=== PATIENT | female | born 1985 | race Caucasian/White ===

== ENCOUNTER 2016-08-26 09:28 | Outpatient (CLI) | payer OTHER ==
[~2016-08-26] VITALS: Ht 165.1 cm; Wt 99.5 kg
[2016-08-26 09:40] VITALS: BP 129/74; PULSE 93; RESP 16; Ht 165.1 cm; Wt 99.5 kg
[2016-08-26] MEDS ORDERED: OMEP20CA16 PO (10:06)
[2016-08-26] MEDS ORDERED: PRED5TAB50 PO (10:06)
[2016-08-26] MEDS ORDERED: FER325 PO (10:06)
[2016-08-26] MEDS ORDERED: MTF1000T PO (10:06)
--- NOTE | 2016-08-26 19:26 | CONS ---
[facility] INITIAL OUTPATIENT CONSULTATION NOTE DATE OF CONSULTATION: 08/26/2016 PLACE OF SERVICE: [facility] ASSESSMENT AND PLAN: A very pleasant 31-year-old young lady with rather complex medical issues including refractory idiopathic thrombocytopenia as well as liver lesions that appear to be benign in nature and likely represent focal nodular hyperplasia. The possibility of adenoma exists and I have very low suspicion of malignancy in this situation. If the patient only had the liver issues, I would have likely not recommended any surgical intervention. She has more a surgical need for removal of her spleen, given her diagnosis of idiopathic thrombocytopenia, and this can certainly be attempted laparoscopically with fairly good success rate of completion with laparoscopy. At the same time we can also evaluate the liver with intraoperative ultrasound and, given the size of these lesions and the patient's abdominal pain, it is possible that the left lateral lesions are causing the patient's symptoms. This area can likely also be resected laparoscopically with a left lateral segmentectomy and therefore both possibly provide symptom relief as well as more diagnostic evaluation of these lesions. I explained all this to the patient and her significant other, both of whom appeared to understand and agree with plans. I reviewed the operation in detail including the risks, benefits, and alternatives, and the patient and family appeared to agree. I described to them the process, which is essentially a multidisciplinary tumor board presentation, followed by likely surgical resection. With above assessment, I have recommended the followin. Multidisciplinary tumor board presentation. 2. Schedule the patient for a laparoscopic splenectomy with possible intraoperative ultrasound of the liver and possible partial hepatectomy. Thank you again for allowing us to participate in the care of this very pleasant lady with a very interesting clinical problem and her wonderful family. If there are any questions, please feel free to contact me at . UPDATED CLINICAL SUMMARY: A very pleasant 31-year-old lady with comorbidities including BMI of 36.5 as well as chronic idiopathic thrombocytopenia (ITP) since late 2014 that has been refractory to medical treatment, presenting with several hepatic masses. COMORBIDITIES: 1. BMI 36.5. 2. Chronic ITP diagnosed late 2014 and refractory to multiple lines of medical treatment including steroid use, Imuran, Nplate (romiplostim) as well as rituximab with very little effect. Platelet counts in the 20s to 30s. Surgical intervention was recommended by Dr. Luna. 3. Anemia. 4. Diabetes mellitus. 5. Adnexal cyst. 6. Hearing loss in the left side. 7. Status post . 8. Multiple liver lesions that appear to be homogeneously arterially phases, enhancing hepatic lesions with differential including hepatic adenomas, hemangiomas, focal nodular hyperplasia, or hypervascular metastatic disease as seen on abdominal and pelvic CT 04/21/2016. Abdominal ultrasound on 04/21/2016 showed enlarged fatty liver and above-mentioned masses measuring up to 6 cm. A contrast MRI 04/24/2016 again showed multiple arterially enhancing liver lesions , one of which was 4.2 x 5.9 cm (distal edge of segment 2), a second one was 1.8 cm (again in segment 2 but more immediately), additional 4 to 5 smaller lesions within the right lobe were noted all showing washout on 30 second delay , and mostly isointense the liver on delayed images. Central areas of hypointensity seen within the 2 left lobe lesions fill in, and there is a suggestion of mild hyperintense appearance on the 60 second delayed films, best seen on image 26. 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 9. A 5 mm cystic pancreatic tail lesion again seen on the MRI. HISTORY OF PRESENT ILLNESS: The patient is a very pleasant 31-year-old lady with above-mentioned comorbidities whom we were kindly asked to consult regarding management of her hepatic lesions. She reports abdominal pain that is in the upper quadrants and spans from the left to the right side. No reported nausea or vomiting or decreased appetite, change in weight, difficulty with bowel movements, issues with blood in the stool or urine or any other major complaints. ALLERGIES: NO KNOWN DRUG ALLERGIES. MEDICATIONS: 1. Ferrous sulfate. 2. Glucophage. 3. Omeprazole. 4. Prednisone 15 mg p.o. every other day. SOCIAL HISTORY: The patient lives with her boyfriend and her child. She does not report any significant smoking, drinking, or intravenous drug use. She was born in [place] and is currently single and has 1 child and is unemployed. FAMILY HISTORY: No mention of major medical issues other than hypertension in the mother. No history of liver disease or other major medical, surgical, or oncologic problems. REVIEW OF SYSTEMS: Other than the above-mentioned, there are no other pertinent positives or pertinent negatives in a complete 14-point review of systems. Note that the patient was on control pills until recently and she stopped taking them, making a 13-year period where she used oral contraceptives. PHYSICAL EXAMINATION: GENERAL: The patient appears to be a very pleasant lady of descent, appearing stated age, sitting in a chair comfortably and in no acute distress. BMI 36.5. VITAL SIGNS: Temperature 98.5, blood pressure 129/74, pulse 93, respiratory rate 16, pulse oximetry 94% on room air. HEENT: Normocephalic and atraumatic. Extraocular muscles and hearing are grossly intact bilaterally and symmetrically. Sclerae are nonicteric. Oral cavity is clear; oral mucosa appeared to be pink and moist. Dentition: fair. NECK: Supple. There is no lymphadenopathy or JVD. There is no submental, submandibular or supraclavicular lymphadenopathy. CHEST: Rises symmetrically with each breath; patient is breathing comfortably. There are no audible wheezes, rales or rhonchi on the gross exam. HEART: Pulse is regular and palpable on the right wrist. Capillary refill was normal. Carotid pulses are palpable bilaterally and symmetrically in the neck. EXTREMITIES: Lower extremities contain no pitting edema around the ankles bilaterally and symmetrically. ABDOMEN: Soft, nondistended, and mildly tender to palpation in the upper quadrants. There is no evidence of peritoneal signs or guarding. There is no evidence of organomegaly, caput medusae, engorged subcutaneous veins, or ascites. SKIN: Appears to be pink and feels warm to touch. NEUROLOGIC: Awake, alert, and follows commands appropriately. LABORATORY DATA: Dated 07/2016, platelet count 30. Dated 06/2016, Marv direct test was positive with 1+ anti-IgG and negative anti-complement levels. Bilirubin 0.3, alkaline phosphatase 101, albumin 3.9, creatinine 0.4, CO2 of 29. CEA 1.0. CA 19-9 of 12. Alpha fetoprotein 1.5. Hepatitis C antibody negative. IMAGING: As above. Note that I personally reviewed all the available and pertinent images and I agree in general with their overall reported findings. Dictated By: TALA KATE/LUIS ENRIQUE Conf#: [id number] DID#: [id number] CC: Anders Luna MD; Madeleine Cochran MD; Terry Matthews;*End* MTDD
== END 2016-08-26 16:54 | disposition home or self-care (01) ==
LOC: HPC 09:28
PROVIDERS: ATTEND Transplant Surgery
DX: D69.3 Immune thrombocytopenic purpura (principal); K76.9 Liver disease, unspecified; E11.9 Type 2 diabetes mellitus without complications; H91.92 Unspecified hearing loss, left ear; Z79.84 Long term (current) use of oral hypoglycemic drugs
CPT/HCPCS: G0463

== ENCOUNTER 2016-09-17 05:30 | Inpatient (IN) | payer OTHER ==
[2016-09-16 09:45] VITALS: BMI 36.7
[2016-09-17] VITALS (19 sets, daily range): BP systolic 126–167; BP diastolic 72–88; PULSE 85–108; RESP 12–18; Ht 165.1 cm; Wt 99.6 kg
[~2016-09-17] VITALS: Ht 165.1 cm; Wt 99.6 kg
[~2016-09-17 05:30] MED LIST: FER325 PO; MTF1000T PO; OMEP20CA16 PO; PRED5TAB50 PO
[2016-09-17] MEDS ORDERED: NORG1TAB65 PO (07:55)
[2016-09-17] MEDS ORDERED: BUPIVACAINE 0.25%/EPI (SDV) 30 ML INJ ONE (08:33)
--- NOTE | 2016-09-17 08:52 | HPN ---
Date/Time of Note Date/Time of Note DATE: 09/17/16 TIME: 08:51 Interval H&P Admission Note Pt. seen H&P reviewed: No system changes Pt. seen H&P reviewed. No system changes (I attest that I have seen and examined the patient and reviewed the operation in detail, as well as its risks , benefits and alternatives of the operation). I attest that I have seen and examined the patient and reviewed in detail the operation, and its associated risks, benefits and alternative. I have answered all the patient's questions to the best of my ability and the patient wishes to proceed. Please refer to rest of electronic medical record for additional updates. TALA HIGGINS M.D. Sep 17, 2016 08:52
[2016-09-17] MEDS ORDERED: MIDAZOLAM 1 MG/ML 2 ML INJ ONE (09:02)
[2016-09-17 09:06] LABS: ADD SCAN DIFF NO
[2016-09-17 09:09] LABS: ABNORMAL IP MESSAGE 1; HEMATOCRIT 25.2 % (37.0-47.0); HEMOGLOBIN 8.5 g/dl (12.0-16.0); MEAN CORPUSCULAR HEMOGLOBIN 35.3 pg (29.0-33.0); MEAN CORPUSCULAR HGB CONC 33.7 g/dl (32.0-37.0); MEAN CORPUSCULAR VOLUME 104.6 fl (82.0-101.0); MEAN PLATELET VOLUME 12.4 fl (7.4-10.4); RED BLOOD COUNT 2.41 10^6/ul (4.20-5.40); RED CELL DISTRIBUTION WIDTH 15.8 % (11.5-14.5)
[2016-09-17] MEDS ORDERED: PHENYLephrine (100 MCG/ML) 5ML SYG ONE (09:14)
[2016-09-17 09:38] LABS: PLATELET COUNT 24 10^3/UL (140-415)
[2016-09-17 10:12] LABS: EOSINOPHILS # 0.1 10^3/ul (0.0-0.5); LYMPHOCYTES # 1.6 10^3/ul (0.8-2.9); MONOCYTE # 0.3 10^3/ul (0.3-0.9); NEUTROPHIL # 1.7 10^3/ul (1.6-7.5)
[2016-09-17 10:13] LABS: PLATELET ESTIMATE PLT APPEAR DECREASED
[2016-09-17] MEDS ORDERED: morphine 10 MG INJ ONE ×2 (11:53→13:21)
[2016-09-17] MEDS ORDERED: LIDOCAINE 2% (SDV) 5 ML INJ ONE (13:19)
[2016-09-17] MEDS ORDERED: PROPOFOL 20 ML ONE (13:19)
[2016-09-17] MEDS ORDERED: ROCURONIUM 50 MG INJ ONE (13:20)
[2016-09-17] MEDS ORDERED: ONDANSETRON 4 MG INJ ONE ×2 (13:20→13:30)
[2016-09-17] MEDS ORDERED: CEFAZOLIN 1 GM INJ ONE (13:20)
[2016-09-17] MEDS ORDERED: D5W-0.45 NACL + KCL 20 MEQ 1,000 ML IV SCH (13:28)
[2016-09-17] MEDS ORDERED: FENTAnyl 50 MCG/ML VIAL ONE (13:29)
[2016-09-17] MEDS ORDERED: morphine (1 MG/ML) 10ML SYRINGE IV ONE (13:30)
[2016-09-17] MEDS ORDERED: DOCUSATE SODIUM 100 MG CAP PO PRN (13:30)
[2016-09-17] MEDS ORDERED: HYDROmorphONE 1 MG/ML SYG IV PRN (13:30)
[2016-09-17] MEDS ORDERED: BISACODYL 10 MG SUPP PR PRN (13:30)
[2016-09-17] MEDS ORDERED: NA PHOSPHATE/BIPHOS 133 ML ENEMA PR PRN (13:30)
[2016-09-17] MEDS ORDERED: HYDROCODONE/APAP (5/325) TAB PO PRN ×2 (13:30)
[2016-09-17] MEDS: FENTAnyl 50 MCG/ML VIAL IV PRN ×2 (13:48→14:01)
[2016-09-17] MEDS: morphine (1 MG/ML) 10ML SYRINGE IV PRN ×6 (13:48→18:36)
[2016-09-17] MEDS ORDERED: MEPERIDINE 25 MG INJ IV PRN (14:00)
[2016-09-17] MEDS ORDERED: DIPHENHYDRAMINE 50 MG INJ IV PRN (14:00)
[2016-09-17] MEDS ORDERED: FENTAnyl 50 MCG/ML VIAL IV PRN (14:00)
[2016-09-17] MEDS ORDERED: ONDANSETRON 4 MG INJ IV PRN (14:00)
--- NOTE | 2016-09-17 14:04 | OPR ---
Date/Time of Note Date/Time of Note DATE: 09/17/16 TIME: 14:04 Operative Report Operative\Procedure Findings [facility] INPATIENT OPERATIVE NOTE PLACE OF SERVICE: [facility] DATE OF SURGERY: 09/17/2016 PREOPERATIVE DIAGNOSIS: 1. Chronic ITP diagnosed late 2014 and refractory to multiple lines of medical treatment including steroid use, Imuran, Nplate (romiplostim) as well as rituximab with very little effect. Platelet counts in the 20s to 30s. Surgical intervention was recommended by Dr. Luna. 2. BMI 36.5. 3. Anemia. 4. Diabetes mellitus. 5. Adnexal cyst. 6. Hearing loss in the left side. 7. Status post . 8. Multiple liver lesions that appear to be homogeneously arterially phases, enhancing hepatic lesions with differential including hepatic adenomas, hemangiomas, focal nodular hyperplasia, or hypervascular metastatic disease as seen on abdominal and pelvic CT 04/21/2016. Abdominal ultrasound on 04/21/2016 showed enlarged fatty liver and above-mentioned masses measuring up to 6 cm. A contrast MRI 04/24/2016 again showed multiple arterially enhancing liver lesions , one of which was 4.2 x 5.9 cm (distal edge of segment 2), a second one was 1.8 cm (again in segment 2 but more immediately), additional 4 to 5 smaller lesions within the right lobe were noted all showing washout on 30 second delay , and mostly isointense the liver on delayed images. Central areas of hypointensity seen within the 2 left lobe lesions fill in, and there is a suggestion of mild hyperintense appearance on the 60 second delayed films, best seen on image 26. 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 9. A 5 mm cystic pancreatic tail lesion again seen on the MRI. POSTOPERATIVE DIAGNOSIS: 1. Chronic ITP diagnosed late 2014 and refractory to multiple lines of medical treatment including steroid use, Imuran, Nplate (romiplostim) as well as rituximab with very little effect. Platelet counts in the 20s to 30s. Surgical intervention was recommended by Dr. Luna. 2. BMI 36.5. 3. Anemia. 4. Diabetes mellitus. 5. Adnexal cyst. 6. Hearing loss in the left side. 7. Status post . 8. Multiple liver lesions that appear to be homogeneously arterially phases, enhancing hepatic lesions with differential including hepatic adenomas, hemangiomas, focal nodular hyperplasia, or hypervascular metastatic disease as seen on abdominal and pelvic CT 04/21/2016. Abdominal ultrasound on 04/21/2016 showed enlarged fatty liver and above-mentioned masses measuring up to 6 cm. A contrast MRI 04/24/2016 again showed multiple arterially enhancing liver lesions , one of which was 4.2 x 5.9 cm (distal edge of segment 2), a second one was 1.8 cm (again in segment 2 but more immediately), additional 4 to 5 smaller lesions within the right lobe were noted all showing washout on 30 second delay , and mostly isointense the liver on delayed images. Central areas of hypointensity seen within the 2 left lobe lesions fill in, and there is a suggestion of mild hyperintense appearance on the 60 second delayed films, best seen on image 26. 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 9. A 5 mm cystic pancreatic tail lesion again seen on the MRI. OPERATION: 1. Laparoscopic, hand-assisted splenectomy and left lateral hepatectomy 2. Intraoperative ultrasound of the liver SURGEON: Tala Higgins M.D. CHANGE NUMBER OPERATOR: ZOE Pastor ANESTHESIA: General endotracheal tube anesthesia ANESTHESIOLOGIST: Tod Weber M.D. BRIEF SUMMARY: A laparoscopic, hand-assisted splenectomy and left lateral hepatectomy and intraoperative ultrasound of the liver was performed without complication. UPDATED CLINICAL SUMMARY: A very pleasant 31-year-old lady with comorbidities including BMI of 36.5 as well as chronic idiopathic thrombocytopenia (ITP) since late 2014 that has been refractory to medical treatment, presenting with several hepatic masses. COMORBIDITIES: 1. BMI 36.5. 2. Chronic ITP diagnosed late 2014 and refractory to multiple lines of medical treatment including steroid use, Imuran, Nplate (romiplostim) as well as rituximab with very little effect. Platelet counts in the 20s to 30s. Surgical intervention was recommended by Dr. Luna. 3. Anemia. 4. Diabetes mellitus. 5. Adnexal cyst. 6. Hearing loss in the left side. 7. Status post . 8. Multiple liver lesions that appear to be homogeneously arterially phases, enhancing hepatic lesions with differential including hepatic adenomas, hemangiomas, focal nodular hyperplasia, or hypervascular metastatic disease as seen on abdominal and pelvic CT 04/21/2016. Abdominal ultrasound on 04/21/2016 showed enlarged fatty liver and above-mentioned masses measuring up to 6 cm. A contrast MRI 04/24/2016 again showed multiple arterially enhancing liver lesions , one of which was 4.2 x 5.9 cm (distal edge of segment 2), a second one was 1.8 cm (again in segment 2 but more immediately), additional 4 to 5 smaller lesions within the right lobe were noted all showing washout on 30 second delay , and mostly isointense the liver on delayed images. Central areas of hypointensity seen within the 2 left lobe lesions fill in, and there is a suggestion of mild hyperintense appearance on the 60 second delayed films, best seen on image 26. 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 9. A 5 mm cystic pancreatic tail lesion again seen on the MRI. BRIEF HISTORY: The patient is a very pleasant 31-year-old young lady with rather complex medical issues including refractory idiopathic thrombocytopenia as well as liver lesions that appear to be benign in nature and likely represent focal nodular hyperplasia. The possibility of adenoma exists and I have very low suspicion of malignancy in this situation. If the patient only had the liver issues, I would have likely not recommended any surgical intervention. She has more a surgical need for removal of her spleen, given her diagnosis of idiopathic thrombocytopenia, and this can certainly be attempted laparoscopically with fairly good success rate of completion with laparoscopy. At the same time we can also evaluate the liver with intraoperative ultrasound and, given the size of these lesions and the patient' s abdominal pain, it is possible that the left lateral lesions are causing the patient's symptoms. This area can likely also be resected laparoscopically with a left lateral segmentectomy and therefore both possibly provide symptom relief as well as more diagnostic evaluation of these lesions. I explained all this to the patient and her significant other, both of whom appeared to understand and agree with plans. I reviewed the operation in detail including the risks, benefits, and alternatives, and the patient and family appeared to agree. I described to them the process, which is essentially a multidisciplinary tumor board presentation, followed by likely surgical resection. For a detailed report of my consultation with patient and family, please refer to my separate consultation note. Multidisciplinary tumor board presentation was conducted on 09/16/2016 and the consensus of the group was to go ahead with surgical intervention as planned. STATEMENT OF THE INFORMED CONSENT: The patient and family appeared to understand the risks of the operation to include, but not be limited to risk of postoperative pain and scar tissue, possible infection or bleeding requiring other interventions such as opening the wound, placement of drainage catheters, or other operative interventions; possible injury to surrounding to structures including bowel, bladder, bile duct, or blood vessels, or solid organs such as liver, kidney, or pancreas requiring other interventions or procedures; possible leakage of pancreatic juice from suture lines causing significant increase in morbidity and mortality and requiring multiple interventions including but not limited to, placement of drainage catheters, imaging studies, as well as operative interventions; possible other source of sepsis such as urinary tract infections or pneumonias, or other sources of potentially life threatening problems such as deep venous thrombus formation causing pulmonary embolism, myocardial arrhythmias and infarctions, and even . We discussed the implications of having a splenectomy in the potential increased risk of complications from infection with encapsulated organisms and the steps which we would take to alleviate those (vaccinations). We also briefly discussed the potential need to receive blood products and their potential complications of blood transfusion reactions, transmission of infections, or other complications. After careful consideration of all their options, the patient and family appeared to understand and wished to proceed with surgery. DESCRIPTION OF PROCEDURE: After obtaining informed consent, the patient was brought into the operating room and was placed in a normal supine position, where successful general endotracheal tube anesthesia was performed. Intravenous access was already in place and intravenous antimicrobials had been appropriately chosen and dosed prior to the operation. The patient's abdominal skin was prepped and draped from the nipple line down to the level of the upper thighs in the usual sterile fashion. We then called a surgical time-out where the patient's identification, date of , nature of the operation, allergies , presence of intravenous antimicrobials, presence of needed equipment, and any other concerns were reviewed and agreed upon by all members of the operating room team. We then started the operation by placing a 5 mm skin incision in the left anterior axillary line in mid left quadrant and placed a 5 mm [employer] trocar into the peritoneal space visualizing all the layers of the abdominal wall as we entered using direct entry technique. Note that there was no indication of any injury to underlying structures using this technique. We insufflated the abdominal cavity to a maximum pressure of 15 mmHg. We noted no injury to underlying structures. No evidence of metastatic disease present. Liver appeared to be healthy. We could see impression of the larger lesion in the left lateral hepatic lobe as seen on the preoperative images. This appeared to be consistent with an adenoma. No obvious evidence of malignancy. We then placed a 9 cm skin incision in the left upper quadrant subcostal area using scalpel to go through the skin and cautery to go through subcutaneous fat and fascia and then placed a GelPort device device device in order to perform the laparoscopic hand-assisted operation. We also placed a 5 mm trocar in the left mid quadrant along the left anterior axillary line and a 12 mm trocar eventually in the umbilical area, after injecting the sites with quarter percent Marcaine with epinephrine and under direct visualization in order to triangulate onto the tail of the pancreas and spleen area. With our instruments and GelPort in place, we had excellent visualization and access to the left upper quadrant. I could feel a normal texture and size spleen in the left upper quadrant. The splenic flexure of the colon was sufficiently distal from this area that did not need mobilization. The tail the pancreas appeared to be normal as well. The left lateral lobe of the liver contained a soft lesion that was visible in segment 3 at the edge. This was consistent clinically with a hepatic adenoma. With this information, I went ahead and started the mobilization of the spleen first from the left lateral aspect detaching the connections of the spleen onto the peritoneum and the splenic bed using cautery. We then use a LigaSure device to get into the lesser sac through the gastrocolic ligament and took the short gastrics down all the way to beyond where the superior pole of the spleen was. We continued our dissection until we had good mobilization of the spleen. It was obvious that the tail the pancreas was very close to the hilum of the spleen. I carefully palpated the area around the spleen as well as in the left upper quadrant to look for any evidence for splenules. None were found. We also did not have any indication from preoperative images that there were possible splenules in the region. I therefore went ahead and transected the spleen from the tail the pancreas using ultimately 3 firings of the 60 mm Endo LIZANDRO flex [place] stapler with a vascular (white) load. This went well without any difficulty. Splint was sent as a specimen for permanent sections to pathology. Note that we started 1 pack of platelets infusion right before we started the dissection around the spleen and this was the only pack of platelets that we gave the patient in the operating room. At this point, I performed a full intraoperative ultrasound of the liver as follows: Intraoperative ultrasound of the liver: The following segments were visualized, and there were essentially lesions supple in all the segments with the exception of the caudate lobe, but no obvious evidence of malignant disease in any of them: Caudate lobe: No lesion. Segment 2: Small 1 cm lesion. Segment 3: 2 lesions, one being the largest lesion seen in the preoperative images approximately 5 cm in greatest dimension , and a smaller one approximately 2-1/2-3 cm in largest dimension. Segment 4: Small subcentimeter lesions in segments 4A and 4B (approximately 2-3 seen). Segment 5: Small 1 cm lesion in segment 5. Segment 6: Small 1 cm lesion in segment 6. Segment 7: Small 1 cm lesion in segment 7. Segment 8: Small 1 cm lesion in segment 8. We also noted antegrade flow through the portal vein on the left and right as well as the hepatic artery on the left and right and also antegrade flow through the middle right and left hepatic veins. Biliary system was normal. Following the thought process in the preoperative setting and discussions with the patient, I decided to perform a left lateral hepatectomy which would essentially remove more than 80-90% of the volume of these lesions from the patient's, gives a chance to evaluate her liver lesions pathology as well as her normal liver, and indicates that if these were hepatic adenomas, that we would hopefully decrease the chances of her having hemorrhage from these, especially the larger one. I therefore chose a suitable plane to transect across segments 3 and 2 after adequate mobilization of the coronal ligaments of the left lateral lobe of the liver from the diaphragm using cautery, and used approximately 5 loads of the same 60 mm [place] stapler with vascular loads to come across and transect the left lateral lobe. This again went without any technical difficulties and the resection line was hemostatic and no bile leak noted. We checked the specimen with the intraoperative ultrasound device and margins were adequate on all lesions that were removed. This was again sent to pathology as a second specimen for permanent sections. We then ensured adequate hemostasis and there was no leakage from the pancreas tail prior to placing a 19 Romansh Jimmy drain through the left anterior axillary line 5 mm trocar site and securing the drain to the skin using 0 nylon suture and laying the tip of the drain along the tail of the pancreas and in the left upper quadrant. The drain laid very nicely. We then removed all our equipment from the abdominal cavity including the pneumoperitoneum and closed the 12 mm port site from inside using one [id number] 0 Vicryl suture on a UR 6 needle followed by closing the 9 cm hand port incision in layers using #1 running PDS suture and then washing the wounds with copious amounts of normal saline and reapproximating the skin using 4-0 Monocryl suture. Light dressing was then applied. At the end of the operation, both the sponge count and needle count were reportedly correct x2. The patient tolerated the procedure without any reported complications. ESTIMATED BLOOD LOSS: 300 mL BLOOD OR BLOOD PRODUCT TRANSFUSIONS: One unit of platelets. SPECIMENS: 1. Spleen 2. Left lateral hepatectomy specimen COMPLICATIONS: None DISPOSITION: Recovery area. Disclaimer: Inadvertent spelling and grammatical errors are likely due to EHR/ dictation software use and do not reflect on the quality of delivered patient care. Also, please note that the electronic time recorded on this node does not necessarily reflect the actual time of the visit. TALA HIGGINS M.D. Sep 17, 2016 14:04
[2016-09-17] MEDS ORDERED: HYDROmorphONE 0.2 MG/ML PCA ONE (14:11)
[2016-09-17 14:13] LABS: ABNORMAL IP MESSAGE 1; BASOPHILS % 0.2 % (0.0-2.0); HEMATOCRIT 26.8 % (37.0-47.0); HEMOGLOBIN 8.9 g/dl (12.0-16.0); LYMPHOCYTES # 0.9 10^3/ul (0.8-2.9); LYMPHOCYTES % 15.4 % (15.0-51.0); MEAN CORPUSCULAR HEMOGLOBIN 35.7 pg (29.0-33.0); MEAN CORPUSCULAR HGB CONC 33.2 g/dl (32.0-37.0); MEAN CORPUSCULAR VOLUME 107.6 fl (82.0-101.0); MEAN PLATELET VOLUME 11.2 fl (7.4-10.4); MONOCYTE # 0.4 10^3/ul (0.3-0.9); MONOCYTES % 7.4 % (0.0-11.0); NEUTROPHIL # 4.3 10^3/ul (1.6-7.5); NEUTROPHILS % 76.8 % (39.0-77.0); RED BLOOD COUNT 2.49 10^6/ul (4.20-5.40); RED CELL DISTRIBUTION WIDTH 15.9 % (11.5-14.5); WHITE BLOOD COUNT 5.6 10^3/ul (4.8-10.8)
[2016-09-17 14:17] LABS: PLATELET COUNT 57 10^3/UL (140-415)
[2016-09-17 14:20] LABS: ADD SCAN DIFF NO
[2016-09-17 14:21] LABS: INR 1.03; PROTIME 13.5 Sec (12.2-14.2); PT RATIO 1.1
[2016-09-17 14:26] LABS: ALBUMIN 4.5 g/dl (3.3-4.9); ALBUMIN/GLOBULIN RATIO 1.55; BILIRUBIN,INDIRECT 0.1 mg/dl (0-1.1); BILIRUBIN,TOTAL 0.1 mg/dl (0.2-1.3); TOTAL PROTEIN 7.4 g/dl (6.1-8.1)
[2016-09-17] MEDS ORDERED: HYDROmorphONE 0.2 MG/ML PCA IV SCH (14:30)
[2016-09-17 14:31] LABS: CALCIUM 8.5 mg/dl (8.4-10.2); CREATININE 0.54 mg/dl (0.44-1.00); POTASSIUM 3.9 mmol/L (3.5-5.1)
[2016-09-17 14:36] LABS: MAGNESIUM 1.7 mg/dl (1.7-2.5); PHOSPHORUS 3.8 mg/dl (2.5-4.9)
[2016-09-17 14:53] LABS: PARTIAL THROMBOPLASTIN TIME 24.9 Sec (25.0-35.0)
--- NOTE | 2016-09-17 15:53 | RADRPT ---
PROCEDURE: XR Chest. CLINICAL INDICATION: Chest pain. Postop. TECHNIQUE: Single frontal view. COMPARISON: 04/22/2016. FINDINGS: The lungs are clear. The heart size is normal. There is no pleural effusion. There is no pneumothorax. IMPRESSION: 1. Normal chest radiograph. RPTAT: QQ .Jeffery Peterson MD, MD Date Time Electronically viewed and signed by .Jeffery Peterson MD, MD on 09/17/2016 15:53 .R/
--- NOTE | 2016-09-17 16:25 | CONS ---
Date/Time of Note Date/Time of Note DATE: 09/17/16 TIME: 16:20 Assessment/Plan Assessment/Plan Chief Complaint/Hosp Course 31-year-old female who came in for an elective laparoscopic cholecystectomy and partial hepatectomy for whom we are consulted for medical management 1. Acute shortness of breath and epigastric/chest pain: Improved 2. Type 2 diabetes mellitus 3. 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 Systemic inflammatory response syndrome secondary to surgery with lactic acidosis Plan: Patient remains somewhat tachycardic, she is, now comfortable. I reviewed the EKG just shows sinus tachycardia, chest x-ray is still pending. In the interim she did get a liter of fluid over 3 hours during surgery, so I will give 1 dose of intravenous Lasix, but due to lactic acidosis will continue IV fluid hydration. No indication for empiric antibiotic at this time, she has had no fevers. My recommendation is that we keep her on a clear liquid diet for now until her bowel sounds are more obvious, and we observe her on the telemetry floor. Patient is on a Dilaudid pump for pain control, will also add some Ativan for anxiety. Thank you for this consult we will continue to follow with you. Problems: Consultation Date/Type/Reason Admit Date/Time Sep 17, 2016 at 05:30 Type of Consultation: Medical Referring Provider: TALA HIGGINS M.D. Hx of Present Illness 31-year-old female with a chronic history of refractory idiopathic thrombocytopenia who was admitted for an elective laparoscopic splenectomy with intraoperative ultrasound of the liver as well as a left lateral hepatectomy. The surgery itself was uneventful, but postoperatively the patient said to have had a mild anxiety episode where she was complaining of some epigastric pain and became very agitated and anxious. She had an EKG that has just showed sinus tachycardia and a chest x-ray has been done and the report is pending. We have been consulted for medical management. unable to obtain much 2/2 clinical status Past Medical History 1. 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 Diabetes mellitus 3. Hard of hearing on the left side 4. Chronic liver lesions thought to be benign 5. Chronic 5 mm pancreatic tail cyst Past Surgical History 1. 2. Splenectomy and left-sided hepatectomy done today Family History Significant Family History: other (Unobtainable at this time) Social History Smoking Status: Never smoker Exam/Review of Systems Vital Signs Vitals Vital Signs Date Time Temp Pulse Resp B/P Pulse Ox O2 Delivery O2 Flow Rate FiO2 09/17/16 14:35 98.0 96 14 126/80 100 Nasal Cannula 2.0 Exam GENERAL: Sleeping but easily arousable, currently no distress HEENT: Moist mucous membranes LUNGS: Mildly diminished but clear breath sounds, possible left-sided basal crackles very fine HEART: S1, S2. No murmur, gallops or rubs. Tachycardic ABDOMEN: Soft, non distended, mid line surgical incision covered in clean dressing , drain in place with good amount of bloody discharge GENITOURINARY: Normal female external genitalia, Claire to bedside drainage EXTREMITIES: No lower extremity edema NEUROLOGIC: The patient is currently sedated. SKIN: Otherwise, unremarkable. Results Result Diagram: 09/17/16 1353 09/17/16 1353 Results 24 hrs Laboratory Tests Test 09/17/16 07:30 09/17/16 08:05 09/17/16 13:53 09/17/16 15:28 Bedside Glucose 174 275 H White Blood Count 3.8 L 5.6 # Red Blood Count 2.41 L 2.49 L Hemoglobin 8.5 L 8.9 L Hematocrit 25.2 L 26.8 L Mean Corpuscular Volume 104.6 H 107.6 H Mean Corpuscular Hemoglobin 35.3 H 35.7 H Mean Corpuscular Hemoglobin Concent 33.7 33.2 Red Cell Distribution Width 15.8 H 15.9 H Platelet Count 24 *L 57 #L Mean Platelet Volume 12.4 H 11.2 H Neutrophils % 46.0 76.8 Band Neutrophils % 2.0 Lymphocytes % 42.0 15.4 Monocytes % 8.0 7.4 Eosinophils % 2.0 0.0 Neutrophils # 1.7 4.3 Lymphocytes # 1.6 0.9 Monocytes # 0.3 0.4 Eosinophils # 0.1 0.0 Platelet Estimate PLT APPEAR DECREASED Basophils % 0.2 Nucleated Red Blood Cells % 0.0 Basophils # 0.0 Nucleated Red Blood Cells # 0.0 Prothrombin Time 13.5 Prothrombin Time Ratio 1.1 INR International Normalized Ratio 1.03 Activated Partial Thromboplast Time 24.9 L Sodium Level 136 Potassium Level 3.9 Chloride Level 101 Carbon Dioxide Level 20 L Anion Gap 19 H Blood Urea Nitrogen 9 Creatinine 0.54 Glucose Level 251 H Lactic Acid Level 8.7 *H Calcium Level 8.5 Phosphorus Level 3.8 Magnesium Level 1.7 Total Bilirubin 0.1 L Direct Bilirubin 0.00 Indirect Bilirubin 0.1 Aspartate Amino Transf (AST/SGOT) 351 H Alanine Aminotransferase (ALT/SGPT) 164 H Alkaline Phosphatase 113 Total Protein 7.4 Albumin 4.5 Globulin 2.90 Albumin/Globulin Ratio 1.55 Amylase Level 49 Lipase 87 Medications Medications Current Medications Potassium Chloride/Dextrose/ Sod Cl (D5-1/2ns + KCl 20 Meq) 1,000 ml @ 100 mls/ hr Q10H IV Last administered on 09/17/16 13:58; Admin Dose 100 MLS/HR; Start 09/17/16 at 13:28 Acetaminophen/ Hydrocodone Bitart ([place] (5/325)) 1 tab Q4H PRN PO PAIN LEVEL 4 -7; Start 09/17/16 at 13:30 Acetaminophen/ Hydrocodone Bitart ([place]in (5/325)) 2 tab Q4H PRN PO PAIN LEVEL 7 -10; Start 09/17/16 at 13:30 Hydromorphone HCl (Dilaudid) 0.5 mg Q2H PRN IV PAIN; Start 09/17/16 at 13:30 Hydromorphone HCl (Dilaudid) 1 mg Q2H PRN IV PAIN; Start 09/17/16 at 13:30 Docusate Sodium (Colace) 100 mg BID PRN PO CONSTIPATION; Start 09/17/16 at 13: 30 Bisacodyl (Dulcolax Supp) 10 mg BID PRN LA CONSTIPATION; Start 09/17/16 at 13: 30 Sodium Biphosphate/ Sodium Phosphate (Fleet Enema) 133 ml BID PRN LA CONSTIPATION; Start 09/17/16 at 13:30 Famotidine (Pepcid Iv) 20 mg DAILY IV ; Start 09/18/16 at 09:00 Enoxaparin Sodium (Lovenox) 40 mg DAILY SC ; Start 09/19/16 at 09:00 Hydromorphone HCl (Dilaudid SCREENER OPERATOR) 0 MG/HR CONTINUOUS RATE ... Q4PCA IV Last administered on 09/17/16 14:14; Admin Dose 6 MG; Start 09/17/16 at 14:30 DEVORA KEITA Sep 17, 2016 16:25
[2016-09-17] MEDS ORDERED: FUROSEMIDE 20 MG INJ IV ONE (16:30)
[2016-09-17] MEDS ORDERED: LORAZEPAM 2 MG INJ IV PRN (16:30)
[2016-09-17] MEDS: SOD CHLORIDE 0.9% 1,000 ML IV SCH (16:41)
[2016-09-17] MEDS ORDERED: GLUCOSE GEL 15 GRAM TUBE BUCCAL PRN (17:00)
[2016-09-17] MEDS ORDERED: GLUCAGON 1 MG INJ IM PRN (17:00)
[2016-09-17] MEDS ORDERED: GLUCOSE GEL 15 GRAM TUBE PO PRN ×2 (17:00)
[2016-09-17] MEDS ORDERED: DEXTROSE 50% 50 ML SYRINGE IV PRN ×2 (17:00)
[2016-09-17] MEDS: predniSOLONE 5 MG TAB PO SCH (17:12)
[2016-09-17] MEDS: INSULIN ASPART [NOVOLOG] 3 ML PEN SC SCH ×2 (18:35→22:38)
[2016-09-17] MEDS ORDERED: metFORMIN 500 MG TAB PO SCH (21:00)
[2016-09-17] MEDS: FERROUS SULFATE (EC) 325 MG TAB PO SCH (22:26)
[2016-09-17] MEDS: DOCUSATE SODIUM 100 MG CAP PO SCH (22:26)
[2016-09-17] MEDS ORDERED: SOD CHLORIDE 0.9% 500 ML IV ONE (23:00)
[2016-09-18] VITALS (13 sets, daily range): BP systolic 121–158; BP diastolic 67–91; PULSE 95–111; RESP 18–20
[2016-09-18] MEDS ORDERED: ONDANSETRON 4 MG INJ IV PRN (00:30)
[2016-09-18] MEDS: INSULIN ASPART [NOVOLOG] 3 ML PEN SC SCH ×8 (01:41→22:56)
[2016-09-18] MEDS ORDERED: ACCU-CHEK XX SCH (02:00)
[2016-09-18] MEDS: ACCU-CHEK XX SCH (02:16)
[2016-09-18 07:27] LABS: ABNORMAL IP MESSAGE 1; HEMATOCRIT 26.5 % (37.0-47.0); HEMOGLOBIN 8.8 g/dl (12.0-16.0); MEAN CORPUSCULAR HEMOGLOBIN 35.2 pg (29.0-33.0); MEAN CORPUSCULAR HGB CONC 33.2 g/dl (32.0-37.0); MEAN PLATELET VOLUME 12.6 fl (7.4-10.4); PLATELET COUNT 44 10^3/UL (140-415); RED CELL DISTRIBUTION WIDTH 16.2 % (11.5-14.5); WHITE BLOOD COUNT 5.9 10^3/ul (4.8-10.8)
[2016-09-18 07:49] LABS: INR 1.14; PARTIAL THROMBOPLASTIN TIME 23.9 Sec (25.0-35.0); PROTIME 14.6 Sec (12.2-14.2); PT RATIO 1.1
[2016-09-18] MEDS: SOD CHLORIDE 0.9% 1,000 ML IV SCH (07:49)
[2016-09-18 08:00] LABS: ALBUMIN 4.4 g/dl (3.3-4.9); ALBUMIN/GLOBULIN RATIO 1.51; BILIRUBIN,INDIRECT 0.4 mg/dl (0-1.1); BILIRUBIN,TOTAL 0.4 mg/dl (0.2-1.3); CALCIUM 8.9 mg/dl (8.4-10.2); CREATININE 0.41 mg/dl (0.44-1.00); MAGNESIUM 1.7 mg/dl (1.7-2.5); PHOSPHORUS 2.4 mg/dl (2.5-4.9); POTASSIUM 3.9 mmol/L (3.5-5.1); TOTAL PROTEIN 7.3 g/dl (6.1-8.1)
[2016-09-18] MEDS ORDERED: SOD CHLORIDE 0.9% 1,000 ML IV ONE (08:00)
[2016-09-18] MEDS: INSULIN GLARGINE [LANtus] 3 ML PEN SC SCH (08:17)
[2016-09-18 08:54] LABS: WHITE BLOOD COUNT 3.8 10^3/ul (4.8-10.8)
[2016-09-18] MEDS ORDERED: FAMOTIDINE 20 MG INJ IV SCH (09:00)
[2016-09-18] MEDS: DOCUSATE SODIUM 100 MG CAP PO SCH ×2 (09:26→20:31)
[2016-09-18] MEDS: FERROUS SULFATE (EC) 325 MG TAB PO SCH ×2 (09:26→20:31)
[2016-09-18] MEDS ORDERED: ROMIPLOSTIM 250 MCG/0.5 ML SC ONE (10:00)
--- NOTE | 2016-09-18 10:15 | CONS ---
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 Rdz, baseline platelet count 20-30K, status post laparoscopic, hand-assisted splenectomy and left lateral hepatectomy and intraoperative ultrasound of the liver on 09/17/16. She received 1 unit of platelets during surgery due to intraoperative bleeding. Per Dr. Luna, the patient has been followed by him since March 2015, last romiplostim was 07/24/16 and she receives [address] Luna, will give 500 mcg romiplostim while here as patient has not received this month. - Will continue to monitor platelet count, currently 44K. Splenectomy unfortunately may not work as would have expected platelet count to increase significantly after splenectomy. - No indication for platelet transfusion unless bleeding in the setting of ITP - Patient should f/u with Dr. 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 Rdz. Platelet counts in the 20s to 30s. Surgical intervention was recommended by Dr. Luna who is her primary vegetable canner. The patient was admitted for an elective laparoscopic splenectomy with intraoperative ultrasound of the liver as well as a left lateral hepatectomy. The surgery itself was uneventful, but postoperatively the patient said to have had a mild anxiety episode where she was complaining of some epigastric pain and became very agitated and anxious and was admitted for medical management. Per Dr. Luna, the patient has been followed by him since March 2015, last romiplostim was 07/24/16 and she receives 500 mcg monthly. Her platelet count on 07/24/16 was in the 30s, but has been in the 20s in the past. She was also recently started on imuran per Dr. Luna. She underwent laparoscopic, hand- assisted splenectomy and left lateral hepatectomy and intraoperative ultrasound of the liver on 09/17/16. She received 1 unit of platelets during surgery due to intraoperative bleeding. She denies bleeding at this time. No complaints except post-surgical pain. Per Dr. Rdz, multiple liver lesions that appear to be homogeneously arterially phases, enhancing hepatic lesions with differential including hepatic adenomas, hemangiomas, focal nodular hyperplasia, or hypervascular metastatic disease as seen on abdominal and pelvic CT 04/21/2016. Abdominal ultrasound on 04/21/2016 showed enlarged fatty liver and above-mentioned masses measuring up to 6 cm. A contrast MRI 04/24/2016 again showed multiple arterially enhancing liver lesions, one of which was 4.2 x 5.9 cm (distal edge of segment 2), a second one was 1.8 cm (again in segment 2 but more immediately) , additional 4 to 5 smaller lesions within the right lobe were noted all showing washout on 30 second delay, and mostly isointense the liver on delayed images. Central areas of hypointensity seen within the 2 left lobe lesions fill in, and there is a suggestion of mild hyperintense appearance on the 60 second delayed films, best seen on image 26. 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 Past Medical History 1. 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 Diabetes mellitus 3. Hard of hearing on the left side 4. Chronic liver lesions thought to be benign 5. Chronic 5 mm pancreatic tail cyst Past Surgical History 1. 2. Splenectomy and left-sided hepatectomy Family History Significant Family History: no pertinent family hx Social History Alcohol Use: none Smoking Status: Never smoker Exam/Review of Systems Vital Signs Vitals Vital Signs Date Time Temp Pulse Resp B/P Pulse Ox O2 Delivery O2 Flow Rate FiO2 09/18/16 08:18 95 09/18/16 07:30 98.5 19 140/73 97 09/17/16 20:00 Nasal Cannula 2.0 Intake and Output 09/17/16 09/17/16 09/18/16 15:00 23:00 07:00 Intake Total 2039 ml 220 ml 1720 ml Output Total 805 ml 600 ml 170 ml Balance 1234 ml -380 ml 1550 ml Exam Constitutional: alert, oriented Psych: no complaints Head: normocephalic Eyes: nl conjunctiva Neck: supple Respiratory: clear to auscultation Cardiovascular: regular rate and rhythm Gastrointestinal: other (SOFY drain in place), soft, tender Musculoskeletal: nl extremities to inspection Neurological: NEONATAL SOCIAL WORKER II-XII intact Results Result Diagram: 09/18/16 0610 09/18/16 0610 Results 24 hrs Laboratory Tests Test 09/17/16 13:53 09/17/16 15:28 09/17/16 18:29 09/17/16 20:42 White Blood Count 5.6 # Red Blood Count 2.49 L Hemoglobin 8.9 L Hematocrit 26.8 L Mean Corpuscular Volume 107.6 H Mean Corpuscular Hemoglobin 35.7 H Mean Corpuscular Hemoglobin Concent 33.2 Red Cell Distribution Width 15.9 H Platelet Count 57 #L Mean Platelet Volume 11.2 H Neutrophils % 76.8 Lymphocytes % 15.4 Monocytes % 7.4 Eosinophils % 0.0 Basophils % 0.2 Nucleated Red Blood Cells % 0.0 Neutrophils # 4.3 Lymphocytes # 0.9 Monocytes # 0.4 Eosinophils # 0.0 Basophils # 0.0 Nucleated Red Blood Cells # 0.0 Prothrombin Time 13.5 Prothrombin Time Ratio 1.1 INR International Normalized Ratio 1.03 Activated Partial Thromboplast Time 24.9 L Sodium Level 136 Potassium Level 3.9 Chloride Level 101 Carbon Dioxide Level 20 L Anion Gap 19 H Blood Urea Nitrogen 9 Creatinine 0.54 Glucose Level 251 H Lactic Acid Level 8.7 *H 7.1 *H Calcium Level 8.5 Phosphorus Level 3.8 Magnesium Level 1.7 Total Bilirubin 0.1 L Direct Bilirubin 0.00 Indirect Bilirubin 0.1 Aspartate Amino Transf (AST/SGOT) 351 H Alanine Aminotransferase (ALT/SGPT) 164 H Alkaline Phosphatase 113 Total Protein 7.4 Albumin 4.5 Globulin 2.90 Albumin/Globulin Ratio 1.55 Amylase Level 49 Lipase 87 Bedside Glucose 275 H 318 H Test 09/17/16 22:25 09/18/16 01:35 09/18/16 05:43 09/18/16 06:10 Bedside Glucose 299 H 288 H Lab Scanned Report BLOOD TRANSFUSION White Blood Count 5.9 Red Blood Count 2.50 L Hemoglobin 8.8 L Hematocrit 26.5 L Mean Corpuscular Volume 106.0 H Mean Corpuscular Hemoglobin 35.2 H Mean Corpuscular Hemoglobin Concent 33.2 Red Cell Distribution Width 16.2 H Platelet Count 44 #L Mean Platelet Volume 12.6 H Prothrombin Time 14.6 H Prothrombin Time Ratio 1.1 INR International Normalized Ratio 1.14 Activated Partial Thromboplast Time 23.9 L Sodium Level 137 Potassium Level 3.9 Chloride Level 97 Carbon Dioxide Level 24 Anion Gap 20 H Blood Urea Nitrogen 6 L Creatinine 0.41 L Glucose Level 236 H Lactic Acid Level 2.4 H Calcium Level 8.9 Phosphorus Level 2.4 #L Magnesium Level 1.7 Total Bilirubin 0.4 Direct Bilirubin 0.00 Indirect Bilirubin 0.4 Aspartate Amino Transf (AST/SGOT) 253 H Alanine Aminotransferase (ALT/SGPT) 213 H Alkaline Phosphatase 103 B-Type Natriuretic Peptide 289 H Total Protein 7.3 Albumin 4.4 Globulin 2.90 Albumin/Globulin Ratio 1.51 Amylase Level 50 Lipase 55 Test 09/18/16 08:10 09/18/16 08:12 Lactic Acid Level 1.4 Bedside Glucose 244 H Medications Medications Current Medications Acetaminophen/ Hydrocodone Bitart ([place] (5/325)) 1 tab Q4H PRN PO PAIN LEVEL 4 -7; Start 09/17/16 at 13:30 Acetaminophen/ Hydrocodone Bitart ([place] (5/325)) 2 tab Q4H PRN PO PAIN LEVEL 7 -10; Start 09/17/16 at 13:30 Hydromorphone HCl (Dilaudid) 0.5 mg Q2H PRN IV PAIN Last administered on 16:47; Admin Dose 0.5 MG; Start 09/17/16 at 13:30 Hydromorphone HCl (Dilaudid) 1 mg Q2H PRN IV PAIN; Start 09/17/16 at 13:30 Bisacodyl (Dulcolax Supp) 10 mg BID PRN [place] CONSTIPATION; Start 09/17/16 at 13: 30 Sodium Biphosphate/ Sodium Phosphate (Fleet Enema) 133 ml BID PRN [place] CONSTIPATION; Start 09/17/16 at 13:30 Enoxaparin Sodium (Lovenox) 40 mg DAILY SC ; Start 09/19/16 at 09:00 Docusate Sodium (Colace) 100 mg BID PO Last administered on 09/18/16 09:26; Admin Dose 100 MG; Start 09/17/16 at 21:00 Diagnostic Test (Pha) (Accu-Chek) 1 ea 02 XX Last administered on 09/18/16 02: 16; Admin Dose 1 EA; Start 09/18/16 at 02:00 Ferrous Sulfate (Ferrous Sulfate (Ec)) 325 mg BID PO Last administered on 09:26; Admin Dose 325 MG; Start 09/17/16 at 21:00 Prednisolone (Prednisolone) 15 mg Q48H PO Last administered on 09/17/16 17:12 ; Admin Dose 15 MG; Start 09/17/16 at 17:30 Lorazepam (Ativan) 0.5 mg Q8H PRN IV agitation; Start 09/17/16 at 16:30 Miscellaneous Information 1 ea NOTE XX ; Start 09/17/16 at 17:00 Glucose (Glutose) 15 gm Q15M PRN PO DECREASED GLUCOSE; Start 09/17/16 at 17:00 Glucose (Glutose) 22.5 gm Q15M PRN PO DECREASED GLUCOSE; Start 09/17/16 at 17: 00 Dextrose (D50w Syringe) 25 ml Q15M PRN IV DECREASED GLUCOSE; Start 09/17/16 at 17:00 Dextrose (D50w Syringe) 50 ml Q15M PRN IV DECREASED GLUCOSE; Start 09/17/16 at 17:00 Glucagon (Glucagen) 1 mg Q15M PRN IM DECREASED GLUCOSE; Start 09/17/16 at 17:00 Glucose (Glutose) 15 gm Q15M PRN BUCCAL DECREASED GLUCOSE; Start 09/17/16 at 17 :00 Ondansetron HCl (Zofran Inj) 4 mg Q4H PRN IV NAUSEA AND/OR VOMITING; Start at 00:30 Insulin Glargine (Lantus) 20 unit DAILY@08 SC Last administered on 09/18/16 08 :17; Admin Dose 20 UNIT; Start 09/18/16 at 08:00 Famotidine (Pepcid) 40 mg HS PO ; Start 09/18/16 at 21:00 ANGY NAM MD Sep 18, 2016 10:15
--- NOTE | 2016-09-18 11:07 | CONS ---
Date/Time of Note Date/Time of Note DATE: 09/18/16 TIME: 10:55 Assessment/Plan Assessment/Plan Chief Complaint/Hosp Course 1 lactic acidosis. -Etiology unclear, type A versus type B lactic acidosis. Unclear if liver pathology lesions are cancerous which can generate a lactic acidosis type B. However given the improvement in lactic acid levels with IV hydration, supportive care this is most suggestive of type a lactic acidosis from hypoperfusion, Sirs. -Lactic acid levels have improved -We will monitor closely 2. Anemia we will monitor H&H levels 3. Refractory ITP. Patient status post splenectomy. 4 liver lesions. Status post resection 5. Diabetes. Monitor glucose level, Accu-Cheks q. before meals nightly 6. Shortness of breath. Improving continue to monitor 7. Chronic pain syndrome continue current pain management Thank you Dr. Sanon for this interesting consult will be a pleasure to follow patient with you throughout hospital course end of dictation Problems: Consultation Date/Type/Reason Admit Date/Time Sep 17, 2016 at 05:30 Reason for Consultation Lactic acidosis Hx of Present Illness 31-year-old female with a chronic history of idiopathic thrombocytopenia refractory to multiple lines of medical treatment including steroid use, Imuran , Nplate (romiplostim) as well as rituximab with very little effect per Dr. Rdz. Platelet counts in the 20s to 30s. Surgical intervention was recommended by Dr. Luna who is her primary paper stacker. The patient was admitted for an elective laparoscopic splenectomy with intraoperative ultrasound of the liver as well as a left lateral hepatectomy. Following surgery. The patient was noted to be hypertensive and markedly elevated lactic acid level. Patient's lactic acid levels have been improving with IV hydration. There is been no reports of hemoptysis hematemesis or hematochezia. Patient has had normal renal function during the hospital course. 14 point review of systems conducted pertinent positives in HPI otherwise negative Psychological: no complaints Past Medical History 1. 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 Diabetes mellitus 3. Hard of hearing on the left side 4. Chronic liver lesions thought to be benign 5. Chronic 5 mm pancreatic tail cyst Past Surgical History 1. 2. Splenectomy and left-sided hepatectomy Social History Alcohol Use: none Smoking Status: Never smoker Exam/Review of Systems Vital Signs Vitals Vital Signs Date Time Temp Pulse Resp B/P Pulse Ox O2 Delivery O2 Flow Rate FiO2 09/18/16 08:18 95 09/18/16 08:10 Nasal Cannula 2.0 09/18/16 07:30 98.5 19 140/73 97 Intake and Output 09/17/16 09/17/16 09/18/16 15:00 23:00 07:00 Intake Total 2039 ml 220 ml 1720 ml Output Total 805 ml 600 ml 170 ml Balance 1234 ml -380 ml 1550 ml Exam Constitutional: alert, oriented Psych: no complaints Head: normocephalic Eyes: nl conjunctiva Neck: supple Respiratory: clear to auscultation Cardiovascular: regular rate and rhythm Gastrointestinal: other (SOFY drain in place), soft, tender Musculoskeletal: nl extremities to inspection Neurological: LOAN MANAGER II-XII intact Results Result Diagram: 09/18/16 0610 09/18/16 0610 Results 24 hrs Laboratory Tests Test 09/17/16 13:53 09/17/16 15:28 09/17/16 18:29 09/17/16 20:42 White Blood Count 5.6 # Red Blood Count 2.49 L Hemoglobin 8.9 L Hematocrit 26.8 L Mean Corpuscular Volume 107.6 H Mean Corpuscular Hemoglobin 35.7 H Mean Corpuscular Hemoglobin Concent 33.2 Red Cell Distribution Width 15.9 H Platelet Count 57 #L Mean Platelet Volume 11.2 H Neutrophils % 76.8 Lymphocytes % 15.4 Monocytes % 7.4 Eosinophils % 0.0 Basophils % 0.2 Nucleated Red Blood Cells % 0.0 Neutrophils # 4.3 Lymphocytes # 0.9 Monocytes # 0.4 Eosinophils # 0.0 Basophils # 0.0 Nucleated Red Blood Cells # 0.0 Prothrombin Time 13.5 Prothrombin Time Ratio 1.1 INR International Normalized Ratio 1.03 Activated Partial Thromboplast Time 24.9 L Sodium Level 136 Potassium Level 3.9 Chloride Level 101 Carbon Dioxide Level 20 L Anion Gap 19 H Blood Urea Nitrogen 9 Creatinine 0.54 Glucose Level 251 H Lactic Acid Level 8.7 *H 7.1 *H Calcium Level 8.5 Phosphorus Level 3.8 Magnesium Level 1.7 Total Bilirubin 0.1 L Direct Bilirubin 0.00 Indirect Bilirubin 0.1 Aspartate Amino Transf (AST/SGOT) 351 H Alanine Aminotransferase (ALT/SGPT) 164 H Alkaline Phosphatase 113 Total Protein 7.4 Albumin 4.5 Globulin 2.90 Albumin/Globulin Ratio 1.55 Amylase Level 49 Lipase 87 Bedside Glucose 275 H 318 H Test 09/17/16 22:25 09/18/16 01:35 09/18/16 05:43 09/18/16 06:10 Bedside Glucose 299 H 288 H Lab Scanned Report BLOOD TRANSFUSION White Blood Count 5.9 Red Blood Count 2.50 L Hemoglobin 8.8 L Hematocrit 26.5 L Mean Corpuscular Volume 106.0 H Mean Corpuscular Hemoglobin 35.2 H Mean Corpuscular Hemoglobin Concent 33.2 Red Cell Distribution Width 16.2 H Platelet Count 44 #L Mean Platelet Volume 12.6 H Prothrombin Time 14.6 H Prothrombin Time Ratio 1.1 INR International Normalized Ratio 1.14 Activated Partial Thromboplast Time 23.9 L Sodium Level 137 Potassium Level 3.9 Chloride Level 97 Carbon Dioxide Level 24 Anion Gap 20 H Blood Urea Nitrogen 6 L Creatinine 0.41 L Glucose Level 236 H Lactic Acid Level 2.4 H Calcium Level 8.9 Phosphorus Level 2.4 #L Magnesium Level 1.7 Total Bilirubin 0.4 Direct Bilirubin 0.00 Indirect Bilirubin 0.4 Aspartate Amino Transf (AST/SGOT) 253 H Alanine Aminotransferase (ALT/SGPT) 213 H Alkaline Phosphatase 103 B-Type Natriuretic Peptide 289 H Total Protein 7.3 Albumin 4.4 Globulin 2.90 Albumin/Globulin Ratio 1.51 Amylase Level 50 Lipase 55 Test 09/18/16 08:10 09/18/16 08:12 Lactic Acid Level 1.4 Bedside Glucose 244 H Medications Medications Current Medications Acetaminophen/ Hydrocodone Bitart ([place] (5/325)) 1 tab Q4H PRN PO PAIN LEVEL 4 -7; Start 09/17/16 at 13:30 Acetaminophen/ Hydrocodone Bitart ([place] (5/325)) 2 tab Q4H PRN PO PAIN LEVEL 7 -10; Start 09/17/16 at 13:30 Hydromorphone HCl (Dilaudid) 0.5 mg Q2H PRN IV PAIN Last administered on t 16:47; Admin Dose 0.5 MG; Start 09/17/16 at 13:30 Hydromorphone HCl (Dilaudid) 1 mg Q2H PRN IV PAIN; Start 09/17/16 at 13:30 Bisacodyl (Dulcolax Supp) 10 mg BID PRN [place] CONSTIPATION; Start 09/17/16 at 13: 30 Sodium Biphosphate/ Sodium Phosphate (Fleet Enema) 133 ml BID PRN [place] CONSTIPATION; Start 09/17/16 at 13:30 Enoxaparin Sodium (Lovenox) 40 mg DAILY SC ; Start 09/19/16 at 09:00 Docusate Sodium (Colace) 100 mg BID PO Last administered on 09/18/16 09:26; Admin Dose 100 MG; Start 09/17/16 at 21:00 Diagnostic Test (Pha) (Accu-Chek) 1 ea 02 XX Last administered on 09/18/16 02: 16; Admin Dose 1 EA; Start 09/18/16 at 02:00 Ferrous Sulfate (Ferrous Sulfate (Ec)) 325 mg BID PO Last administered on 09:26; Admin Dose 325 MG; Start 09/17/16 at 21:00 Prednisolone (Prednisolone) 15 mg Q48H PO Last administered on 09/17/16 17:12 ; Admin Dose 15 MG; Start 09/17/16 at 17:30 Lorazepam (Ativan) 0.5 mg Q8H PRN IV agitation; Start 09/17/16 at 16:30 Miscellaneous Information 1 ea NOTE XX ; Start 09/17/16 at 17:00 Glucose (Glutose) 15 gm Q15M PRN PO DECREASED GLUCOSE; Start 09/17/16 at 17:00 Glucose (Glutose) 22.5 gm Q15M PRN PO DECREASED GLUCOSE; Start 09/17/16 at 17: 00 Dextrose (D50w Syringe) 25 ml Q15M PRN IV DECREASED GLUCOSE; Start 09/17/16 at 17:00 Dextrose (D50w Syringe) 50 ml Q15M PRN IV DECREASED GLUCOSE; Start 09/17/16 at 17:00 Glucagon (Glucagen) 1 mg Q15M PRN IM DECREASED GLUCOSE; Start 09/17/16 at 17:00 Glucose (Glutose) 15 gm Q15M PRN BUCCAL DECREASED GLUCOSE; Start 09/17/16 at 17 :00 Ondansetron HCl (Zofran Inj) 4 mg Q4H PRN IV NAUSEA AND/OR VOMITING; Start at 00:30 Insulin Glargine (Lantus) 20 unit DAILY@08 SC Last administered on 09/18/16 08 :17; Admin Dose 20 UNIT; Start 09/18/16 at 08:00 Famotidine (Pepcid) 40 mg HS PO ; Start 09/18/16 at 21:00 TIMO THOMASON DO Sep 18, 2016 11:07
--- NOTE | 2016-09-18 11:50 | CONS ---
Date/Time of Note Date/Time of Note DATE: 09/18/16 TIME: 11:46 Assessment/Plan Assessment/Plan Chief Complaint/Hosp Course 31-year-old female who came in for an elective laparoscopic cholecystectomy and partial hepatectomy for whom we are consulted for medical management 1. Acute shortness of breath and epigastric/chest pain: Improved 2. Type 2 diabetes mellitus: suboptimal control 3. 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 Systemic inflammatory response syndrome secondary to surgery with lactic acidosis: improving Plan: Continue IV hydration Nephro consult re: lactic acidosis associated with metformin therapy Insulin and lantus for DM trend lactic acid levels encourage IS and OOB Supportive care Thank you for this consult we will continue to follow with you. Problems: Consultation Date/Type/Reason Admit Date/Time Sep 17, 2016 at 05:30 Initial Consult Date 09/18/16 Type of Consultation: Hematology Referring Provider: TALA HIGGINS M.D. 24 HR Interval Summary Free Text/Dictation Patient still reporting a lot of pain, ambulant to bathroom only Exam/Review of Systems Vital Signs Vitals Vital Signs Date Time Temp Pulse Resp B/P Pulse Ox O2 Delivery O2 Flow Rate FiO2 09/18/16 11:14 98.5 106 19 149/91 96 09/18/16 08:10 Nasal Cannula 2.0 Intake and Output 09/17/16 09/17/16 09/18/16 15:00 23:00 07:00 Intake Total 2039 ml 220 ml 1720 ml Output Total 805 ml 600 ml 170 ml Balance 1234 ml -380 ml 1550 ml Exam Constitutional: alert, other (ill looking) Head: atraumatic, normocephalic Eyes: PERRL Neck: supple Respiratory: diminished breath sounds Cardiovascular: regular rate and rhythm Gastrointestinal: bowel sounds (hypoactive), soft, surgical scars, tender Neurological: lethargic, nl mental status Results Result Diagram: 09/18/16 0610 09/18/16 0610 Results 24 hrs Laboratory Tests Test 09/17/16 13:53 09/17/16 15:28 09/17/16 18:29 09/17/16 20:42 White Blood Count 5.6 # Red Blood Count 2.49 L Hemoglobin 8.9 L Hematocrit 26.8 L Mean Corpuscular Volume 107.6 H Mean Corpuscular Hemoglobin 35.7 H Mean Corpuscular Hemoglobin Concent 33.2 Red Cell Distribution Width 15.9 H Platelet Count 57 #L Mean Platelet Volume 11.2 H Neutrophils % 76.8 Lymphocytes % 15.4 Monocytes % 7.4 Eosinophils % 0.0 Basophils % 0.2 Nucleated Red Blood Cells % 0.0 Neutrophils # 4.3 Lymphocytes # 0.9 Monocytes # 0.4 Eosinophils # 0.0 Basophils # 0.0 Nucleated Red Blood Cells # 0.0 Prothrombin Time 13.5 Prothrombin Time Ratio 1.1 INR International Normalized Ratio 1.03 Activated Partial Thromboplast Time 24.9 L Sodium Level 136 Potassium Level 3.9 Chloride Level 101 Carbon Dioxide Level 20 L Anion Gap 19 H Blood Urea Nitrogen 9 Creatinine 0.54 Glucose Level 251 H Lactic Acid Level 8.7 *H 7.1 *H Calcium Level 8.5 Phosphorus Level 3.8 Magnesium Level 1.7 Total Bilirubin 0.1 L Direct Bilirubin 0.00 Indirect Bilirubin 0.1 Aspartate Amino Transf (AST/SGOT) 351 H Alanine Aminotransferase (ALT/SGPT) 164 H Alkaline Phosphatase 113 Total Protein 7.4 Albumin 4.5 Globulin 2.90 Albumin/Globulin Ratio 1.55 Amylase Level 49 Lipase 87 Bedside Glucose 275 H 318 H Test 09/17/16 22:25 09/18/16 01:35 09/18/16 05:43 09/18/16 06:10 Bedside Glucose 299 H 288 H Lab Scanned Report BLOOD TRANSFUSION White Blood Count 5.9 Red Blood Count 2.50 L Hemoglobin 8.8 L Hematocrit 26.5 L Mean Corpuscular Volume 106.0 H Mean Corpuscular Hemoglobin 35.2 H Mean Corpuscular Hemoglobin Concent 33.2 Red Cell Distribution Width 16.2 H Platelet Count 44 #L Mean Platelet Volume 12.6 H Prothrombin Time 14.6 H Prothrombin Time Ratio 1.1 INR International Normalized Ratio 1.14 Activated Partial Thromboplast Time 23.9 L Sodium Level 137 Potassium Level 3.9 Chloride Level 97 Carbon Dioxide Level 24 Anion Gap 20 H Blood Urea Nitrogen 6 L Creatinine 0.41 L Glucose Level 236 H Lactic Acid Level 2.4 H Calcium Level 8.9 Phosphorus Level 2.4 #L Magnesium Level 1.7 Total Bilirubin 0.4 Direct Bilirubin 0.00 Indirect Bilirubin 0.4 Aspartate Amino Transf (AST/SGOT) 253 H Alanine Aminotransferase (ALT/SGPT) 213 H Alkaline Phosphatase 103 B-Type Natriuretic Peptide 289 H Total Protein 7.3 Albumin 4.4 Globulin 2.90 Albumin/Globulin Ratio 1.51 Amylase Level 50 Lipase 55 Test 09/18/16 08:10 09/18/16 08:12 Lactic Acid Level 1.4 Bedside Glucose 244 H Medications Medications Current Medications Acetaminophen/ Hydrocodone Bitart ([place] (5/325)) 1 tab Q4H PRN PO PAIN LEVEL 4 -7; Start 09/17/16 at 13:30 Acetaminophen/ Hydrocodone Bitart ([place] (5/325)) 2 tab Q4H PRN PO PAIN LEVEL 7 -10; Start 09/17/16 at 13:30 Hydromorphone HCl (Dilaudid) 0.5 mg Q2H PRN IV PAIN Last administered on 16:47; Admin Dose 0.5 MG; Start 09/17/16 at 13:30 Hydromorphone HCl (Dilaudid) 1 mg Q2H PRN IV PAIN; Start 09/17/16 at 13:30 Bisacodyl (Dulcolax Supp) 10 mg BID PRN [place] CONSTIPATION; Start 09/17/16 at 13: 30 Sodium Biphosphate/ Sodium Phosphate (Fleet Enema) 133 ml BID PRN [place] CONSTIPATION; Start 09/17/16 at 13:30 Enoxaparin Sodium (Lovenox) 40 mg DAILY SC ; Start 09/19/16 at 09:00 Docusate Sodium (Colace) 100 mg BID PO Last administered on 09/18/16 09:26; Admin Dose 100 MG; Start 09/17/16 at 21:00 Diagnostic Test (Pha) (Accu-Chek) 1 ea 02 XX Last administered on 09/18/16 02: 16; Admin Dose 1 EA; Start 09/18/16 at 02:00 Ferrous Sulfate (Ferrous Sulfate (Ec)) 325 mg BID PO Last administered on 09:26; Admin Dose 325 MG; Start 09/17/16 at 21:00 Prednisolone (Prednisolone) 15 mg Q48H PO Last administered on 09/17/16 17:12 ; Admin Dose 15 MG; Start 09/17/16 at 17:30 Lorazepam (Ativan) 0.5 mg Q8H PRN IV agitation; Start 09/17/16 at 16:30 Miscellaneous Information 1 ea NOTE XX ; Start 09/17/16 at 17:00 Glucose (Glutose) 15 gm Q15M PRN PO DECREASED GLUCOSE; Start 09/17/16 at 17:00 Glucose (Glutose) 22.5 gm Q15M PRN PO DECREASED GLUCOSE; Start 09/17/16 at 17: 00 Dextrose (D50w Syringe) 25 ml Q15M PRN IV DECREASED GLUCOSE; Start 09/17/16 at 17:00 Dextrose (D50w Syringe) 50 ml Q15M PRN IV DECREASED GLUCOSE; Start 09/17/16 at 17:00 Glucagon (Glucagen) 1 mg Q15M PRN IM DECREASED GLUCOSE; Start 09/17/16 at 17:00 Glucose (Glutose) 15 gm Q15M PRN BUCCAL DECREASED GLUCOSE; Start 09/17/16 at 17 :00 Ondansetron HCl (Zofran Inj) 4 mg Q4H PRN IV NAUSEA AND/OR VOMITING; Start at 00:30 Insulin Glargine (Lantus) 20 unit DAILY@08 SC Last administered on 09/18/16t 08 :17; Admin Dose 20 UNIT; Start 09/18/16 at 08:00 Famotidine (Pepcid) 40 mg HS PO ; Start 09/18/16 at 21:00 DEVORA KEITA Sep 18, 2016 11:50
[2016-09-18 12:03] LABS: LYMPHOCYTES # 0.6 10^3/ul (0.8-2.9); MONOCYTE # 0.3 10^3/ul (0.3-0.9); NEUTROPHIL # 4.4 10^3/ul (1.6-7.5); PLATELET ESTIMATE PLT APPEAR DECREASED
[2016-09-18] MEDS ORDERED: POTASSIUM PHOSPHATE 15 MM in SOD CHLORIDE 0.9% 250 ML IVPB ONE (13:00)
[2016-09-18 13:29] LABS: ADD SCAN DIFF NO
[2016-09-18] MEDS: HYDROmorphONE 1 MG/ML SYG IV PRN ×3 (13:53→20:30)
[2016-09-18] MEDS: FAMOTIDINE 20 MG TAB PO SCH (20:31)
--- NOTE | 2016-09-18 22:47 | PN ---
Date/Time of Note Date/Time of Note DATE: 09/18/16 TIME: 13:32 Assessment/Plan Lines/Catheters IV Catheter Type (from Nrs): Peripheral IV Claire in Place (from Nrs): No Assessment/Plan Assessment/Plan [facility] Progress Note Date of Service: 09/18/16 Today's Impression & Plan: Overall doing well post op without major issues. No major wound problems. Platelet count rising, although expected value of 170K not reached (will check counts in am). There was no evidence of accessory spleen, none seen in pre- operative images, and overall incidence of such presentation is only around 3 % in surgical literature pertaining to splenectomy in ITP patients; therefore not likely due to accessory spleen. No evidence for hemorrhage. No evidence for pancreas tail leak. Elevated lactic acid expected from the operation and quickly normalizing. No indication for acute surgical intervention. Appreciate consultants' input. Patient's symptoms of pain and shortness of breath likely multifactorial and significantly contributed by pneumoperitoneum used during laparoscopy and likely by anxiety. Cardiac and pulmonary w/u negative. No evidence for major cardiopulmonary issues. Will likely be able to d/c home tomorrow am. Discussed with patient and her mother and answered all questions. Also d/w patient's nurse. With above assessment, I've recommended the following for today: 1. Transfer out of tele 2. Regular diet 3. Increase activity 4. Increase ICS 5. Labs in am 6. D/c planning in am Thank you again for your great care of this very pleasant patient and wonderful family. If there are any questions, please feel free to call me at [phone]. TOTAL VISIT TIME: 20 minutes of which more than half was spent in [id number] discussion with the patient, possibly including family, as well as coordination of care between multiple physicians and providers. Disclaimer: Inadvertent spelling or grammatical errors are likely due to EHR/ dictation software use and do not reflect on the overall quality of patient care. Updated Clinical Summary: UPDATED CLINICAL SUMMARY: A very pleasant 31-year-old lady with comorbidities including BMI of 36.5 as well as chronic idiopathic thrombocytopenia (ITP) since late 2014 that has been refractory to medical treatment, presenting with several hepatic masses. S/p laparoscopic, hand-assisted splenectomy and left lateral hepatectomy and intraoperative ultrasound of the liver at [facility] 09/17/16. COMORBIDITIES: 1. Chronic ITP diagnosed late 2014 and refractory to multiple lines of medical treatment including steroid use, Imuran, Nplate (romiplostim) as well as rituximab with very little effect. Platelet counts in the 20s to 30s. Surgical intervention was recommended by Dr. Luna. S/p laparoscopic, hand- assisted splenectomy and left lateral hepatectomy and intraoperative ultrasound of the liver at [facility] 09/17/16 2. BMI 36.5. 3. Anemia. 4. Diabetes mellitus. 5. Adnexal cyst. 6. Hearing loss in the left side. 7. Status post . 8. Multiple liver lesions that appear to be homogeneously arterially phases, enhancing hepatic lesions with differential including hepatic adenomas, hemangiomas, focal nodular hyperplasia, or hypervascular metastatic disease as seen on abdominal and pelvic CT 04/21/2016. Abdominal ultrasound on 04/21/2016 showed enlarged fatty liver and above-mentioned masses measuring up to 6 cm. A contrast MRI 04/24/2016 again showed multiple arterially enhancing liver lesions , one of which was 4.2 x 5.9 cm (distal edge of segment 2), a second one was 1.8 cm (again in segment 2 but more immediately), additional 4 to 5 smaller lesions within the right lobe were noted all showing washout on 30 second delay , and mostly isointense the liver on delayed images. Central areas of hypointensity seen within the 2 left lobe lesions fill in, and there is a suggestion of mild hyperintense appearance on the 60 second delayed films, best seen on image 26. 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 9. A 5 mm cystic pancreatic tail lesion again seen on the MRI. Subjective: No major events or complaints; mild incisional abd pain and under control with medications; no n/v/d; no sob or cp; - flatus; - BM; minimal activity Objective: Vitals: See below Exam: GENERAL: On exam, the patient was laying in bed and appeared to be comfortable and in no acute distress. ABDOMEN: Soft, nontender and nondistended. Incision dressings are clean, dry and intact without any evidence of obvious underlying erythema, edema, discharge , or hernia. Surgery drain ss. There are no peritoneal signs or guarding. SKIN: Skin appears to be pink and feels warm to touch. NEUROLOGIC: Patient is awake, alert, and follows commands appropriately. Exam/Review of Systems Vital Signs Vitals Vital Signs Date Time Temp Pulse Resp B/P Pulse Ox O2 Delivery O2 Flow Rate FiO2 09/18/16 20:47 98.8 108 20 121/67 93 09/18/16 20:10 Nasal Cannula 2.0 Intake and Output 09/17/16 09/17/16 09/18/16 15:00 23:00 07:00 Intake Total 2039 ml 220 ml 1720 ml Output Total 805 ml 600 ml 170 ml Balance 1234 ml -380 ml 1550 ml Results Result Diagram: 09/18/16 0610 09/18/16 0610 TALA HIGGINS M.D. Sep 18, 2016 22:47
[2016-09-19] MEDS: HYDROmorphONE 1 MG/ML SYG IV PRN ×8 (00:31→23:30)
[2016-09-19 00:45] VITALS: BP 123/72; PULSE 107; RESP 18
[2016-09-19] MEDS: ACCU-CHEK XX SCH (02:18)
[2016-09-19 06:10] LABS: ABNORMAL IP MESSAGE 1; BASOPHILS % 0.2 % (0.0-2.0); EOSINOPHILS % 0.2 % (0.0-7.0); HEMATOCRIT 26.8 % (37.0-47.0); HEMOGLOBIN 8.8 g/dl (12.0-16.0); LYMPHOCYTES # 1.7 10^3/ul (0.8-2.9); LYMPHOCYTES % 25.5 % (15.0-51.0); MEAN CORPUSCULAR HEMOGLOBIN 35.2 pg (29.0-33.0); MEAN CORPUSCULAR HGB CONC 32.8 g/dl (32.0-37.0); MEAN CORPUSCULAR VOLUME 107.2 fl (82.0-101.0); MEAN PLATELET VOLUME 11.3 fl (7.4-10.4); MONOCYTE # 0.5 10^3/ul (0.3-0.9); NEUTROPHIL # 4.4 10^3/ul (1.6-7.5); NEUTROPHILS % 65.8 % (39.0-77.0); NUCLEATED RED BLOOD CELLS% 0.5 /100WBC (0.0-0.0); RED CELL DISTRIBUTION WIDTH 16.3 % (11.5-14.5); WHITE BLOOD COUNT 6.6 10^3/ul (4.8-10.8)
[2016-09-19 06:31] LABS: INR 1.18; PROTIME 15.1 Sec (12.2-14.2); PT RATIO 1.2
[2016-09-19 06:32] LABS: PARTIAL THROMBOPLASTIN TIME 29.3 Sec (25.0-35.0)
[2016-09-19 06:55] LABS: PLATELET COUNT 29 10^3/UL (140-415)
[2016-09-19 06:59] LABS: ALBUMIN 4.2 g/dl (3.3-4.9); ALBUMIN/GLOBULIN RATIO 1.44; BILIRUBIN,INDIRECT 0.4 mg/dl (0-1.1); BILIRUBIN,TOTAL 0.4 mg/dl (0.2-1.3); CALCIUM 8.9 mg/dl (8.4-10.2); CREATININE 0.48 mg/dl (0.44-1.00); MAGNESIUM 1.9 mg/dl (1.7-2.5); POTASSIUM 3.6 mmol/L (3.5-5.1); TOTAL PROTEIN 7.1 g/dl (6.1-8.1)
[2016-09-19 08:04] VITALS: BP 136/83; RESP 20
[2016-09-19] MEDS: INSULIN ASPART [NOVOLOG] 3 ML PEN SC SCH ×7 (08:13→20:34)
[2016-09-19] MEDS: INSULIN GLARGINE [LANtus] 3 ML PEN SC SCH (08:14)
[2016-09-19] MEDS ORDERED: ENOXAPARIN 40 MG/0.4 ML SYG SC SCH (09:00)
[2016-09-19] MEDS: DOCUSATE SODIUM 100 MG CAP PO SCH ×2 (09:08→20:28)
[2016-09-19] MEDS: FERROUS SULFATE (EC) 325 MG TAB PO SCH ×2 (09:08→20:28)
--- NOTE | 2016-09-19 09:22 | PN ---
Date/Time of Note Date/Time of Note DATE: 09/19/16 TIME: 09:20 Assessment/Plan Lines/Catheters IV Catheter Type (from Nrs): Peripheral IV Claire in Place (from Nrs): No Assessment/Plan Assessment/Plan [facility] Progress Note Date of Service: 09/19/16 Today's Impression & Plan: Overall doing well post op without major issues. No major wound problems. Platelet count low. Expected counts at this time would be around 170K. May indicate failure of splenectomy to treat ITP. There was no evidence of accessory spleen, none seen in pre-operative images, none found during surgical exploration, and overall incidence of such presentation is only around 3 % in surgical literature pertaining to splenectomy in ITP patients; therefore not likely due to accessory spleen. No evidence for hemorrhage. No evidence for pancreas tail leak. Lactic acidosis normalized. Likely has post operative paralytic ileus. Also, atelectasis likely reason for low grade temps. No indication for acute surgical intervention. Appreciate consultants' input. Patient's symptoms of pain and shortness of breath likely multifactorial and significantly contributed by pneumoperitoneum used during laparoscopy and likely by anxiety. Cardiac and pulmonary w/u negative. No evidence for major cardiopulmonary issues. BNP normal and doubt fluid overload. Not ready for d/c home. Discussed with patient and her mother and answered all questions. Also d/ w patient's nurse. With above assessment, I've recommended the following for today: 1. Keep inhouse 2. Liquid diet 3. Increase activity 4. Increase ICS 5. Labs in am 6. Bowel regimen from below only 7. Toradol 8. Chest x ray 9. ITP therapy per hematology (much appreciate input) 10. Teach patient and family drain care (emptying and recording output with keeping of a daily log of output to bring back to the office; as well as care around skin and during shower) 11. Ok to shower Thank you again for your great care of this very pleasant patient and wonderful family. If there are any questions, please feel free to call me at [phone]. TOTAL VISIT TIME: 20 minutes of which more than half was spent in [id number] discussion with the patient, possibly including family, as well as coordination of care between multiple physicians and providers. Disclaimer: Inadvertent spelling or grammatical errors are likely due to EHR/ dictation software use and do not reflect on the overall quality of patient care. Updated Clinical Summary: UPDATED CLINICAL SUMMARY: A very pleasant 31-year-old lady with comorbidities including BMI of 36.5 as well as chronic idiopathic thrombocytopenia (ITP) since late 2014 that has been refractory to medical treatment, presenting with several hepatic masses. S/p laparoscopic, hand-assisted splenectomy and left lateral hepatectomy and intraoperative ultrasound of the liver at [facility] 09/17/16. COMORBIDITIES: 1. Chronic ITP diagnosed late 2014 and refractory to multiple lines of medical treatment including steroid use, Imuran, Nplate (romiplostim) as well as rituximab with very little effect. Platelet counts in the 20s to 30s. Surgical intervention was recommended by Dr. Luna. S/p laparoscopic, hand- assisted splenectomy and left lateral hepatectomy and intraoperative ultrasound of the liver at [facility] 09/17/16 2. BMI 36.5. 3. Anemia. 4. Diabetes mellitus. 5. Adnexal cyst. 6. Hearing loss in the left side. 7. Status post . 8. Multiple liver lesions that appear to be homogeneously arterially phases, enhancing hepatic lesions with differential including hepatic adenomas, hemangiomas, focal nodular hyperplasia, or hypervascular metastatic disease as seen on abdominal and pelvic CT 04/21/2016. Abdominal ultrasound on 04/21/2016 showed enlarged fatty liver and above-mentioned masses measuring up to 6 cm. A contrast MRI 04/24/2016 again showed multiple arterially enhancing liver lesions , one of which was 4.2 x 5.9 cm (distal edge of segment 2), a second one was 1.8 cm (again in segment 2 but more immediately), additional 4 to 5 smaller lesions within the right lobe were noted all showing washout on 30 second delay , and mostly isointense the liver on delayed images. Central areas of hypointensity seen within the 2 left lobe lesions fill in, and there is a suggestion of mild hyperintense appearance on the 60 second delayed films, best seen on image 26. 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 9. A 5 mm cystic pancreatic tail lesion again seen on the MRI. Subjective: No major events or complaints; ongoing incisional abd pain and mid epigastric pain and under control with medications; no n/v/d; no sob or cp; - flatus; - BM ; minimal activity Objective: Vitals: See below Exam: GENERAL: On exam, the patient was laying in bed and appeared to be comfortable and in no acute distress. ABDOMEN: Soft, nontender and nondistended. Incision dressings d/c'd (much verbalized discomfort disproportion to the signal) and incisions are clean, dry and intact without any evidence of obvious erythema, edema, discharge, or hernia. Surgery drain ss. There are no peritoneal signs or guarding. SKIN: Skin appears to be pink and feels warm to touch. NEUROLOGIC: Patient is awake, alert, and follows commands appropriately. Exam/Review of Systems Vital Signs Vitals Vital Signs Date Time Temp Pulse Resp B/P Pulse Ox O2 Delivery O2 Flow Rate FiO2 09/19/16 08:04 98.9 79 20 136/83 96 09/19/16 00:45 Nasal Cannula 09/18/16 20:10 2.0 Intake and Output 09/18/16 09/18/16 09/19/16 15:00 23:00 07:00 Intake Total 625 ml 500 ml Output Total 20 ml Balance 625 ml 480 ml Results Result Diagram: 09/19/16 0525 09/19/16 0525 TALA HIGGINS M.D. Sep 19, 2016 09:22
--- NOTE | 2016-09-19 09:35 | PN ---
Date/Time of Note Date/Time of Note DATE: 09/19/16 TIME: 09:31 Assessment/Plan Lines/Catheters IV Catheter Type (from [facility]): Peripheral IV Urinary Cath still in place: No Assessment/Plan Chief Complaint/Hosp Course 1 lactic acidosis. -Etiology unclear, likely type A from surgery, SIRS -Lactic acid levels have improved -We will continue to improve 2. Anemia we will monitor H&H levels 3. Refractory ITP. Patient status post splenectomy. 4 liver lesions. Status post resection 5. Diabetes. Monitor glucose level, Accu-Cheks q. before meals nightly 6. Shortness of breath. Improving continue to monitor 7. Chronic pain syndrome continue current pain management Problems: Subjective 24 Hr Interval Summary Free Text/Dictation No acute events overnight no hemoptysis hematemesis hematochezia. Pain is present but controlled with medication Exam/Review of Systems Vital Signs Vitals Vital Signs Date Time Temp Pulse Resp B/P Pulse Ox O2 Delivery O2 Flow Rate FiO2 09/19/16 08:04 98.9 79 20 136/83 96 09/19/16 00:45 Nasal Cannula 09/18/16 20:10 2.0 Intake and Output 09/18/16 09/18/16 09/19/16 15:00 23:00 07:00 Intake Total 625 ml 500 ml Output Total 20 ml Balance 625 ml 480 ml Exam Constitutional: alert, oriented Psych: no complaints Head: normocephalic Eyes: nl conjunctiva Neck: supple Respiratory: clear to auscultation Cardiovascular: regular rate and rhythm Gastrointestinal: other (SOFY drain in place), soft, tender Musculoskeletal: nl extremities to inspection Neurological: E BUSINESS MANAGER II-XII intact Results Result Diagram: 09/19/16 0525 09/19/16 0525 Results 24 hrs Laboratory Tests Test 09/18/16 12:05 09/18/16 16:57 09/18/16 22:49 09/19/16 02:09 Bedside Glucose 209 187 212 214 Test 09/19/16 05:25 09/19/16 05:26 09/19/16 07:30 09/19/16 07:57 White Blood Count 6.6 Red Blood Count 2.50 L Hemoglobin 8.8 L Hematocrit 26.8 L Mean Corpuscular Volume 107.2 H Mean Corpuscular Hemoglobin 35.2 H Mean Corpuscular Hemoglobin Concent 32.8 Red Cell Distribution Width 16.3 H Platelet Count 29 #*L Mean Platelet Volume 11.3 H Neutrophils % 65.8 Lymphocytes % 25.5 Monocytes % 8.0 Eosinophils % 0.2 Basophils % 0.2 Nucleated Red Blood Cells % 0.5 H Neutrophils # 4.4 Lymphocytes # 1.7 Monocytes # 0.5 Eosinophils # 0.0 Basophils # 0.0 Nucleated Red Blood Cells # 0.0 Sodium Level 137 Potassium Level 3.6 Chloride Level 96 L Carbon Dioxide Level 25 Anion Gap 20 H Blood Urea Nitrogen 7 Creatinine 0.48 Glucose Level 204 Lactic Acid Level 2.1 Calcium Level 8.9 Phosphorus Level 2.0 L Magnesium Level 1.9 Total Bilirubin 0.4 Direct Bilirubin 0.00 Indirect Bilirubin 0.4 Aspartate Amino Transf (AST/SGOT) 93 H Alanine Aminotransferase (ALT/SGPT) 163 H Alkaline Phosphatase 102 B-Type Natriuretic Peptide 99 Total Protein 7.1 Albumin 4.2 Globulin 2.90 Albumin/Globulin Ratio 1.44 Prothrombin Time 15.1 H Prothrombin Time Ratio 1.2 INR International Normalized Ratio 1.18 Activated Partial Thromboplast Time 29.3 Lab Scanned Report LAB Bedside Glucose 233 H Medications Medications Current Medications Acetaminophen/ Hydrocodone Bitart ([place] (5/325)) 1 tab Q4H PRN PO PAIN LEVEL 4 -7; Start 09/17/16 at 13:30 Acetaminophen/ Hydrocodone Bitart ([place] (5/325)) 2 tab Q4H PRN PO PAIN LEVEL 7 -10; Start 09/17/16 at 13:30 Hydromorphone HCl (Dilaudid) 0.5 mg Q2H PRN IV PAIN Last administered on 16:47; Admin Dose 0.5 MG; Start 09/17/16 at 13:30 Hydromorphone HCl (Dilaudid) 1 mg Q2H PRN IV PAIN Last administered on 08:28; Admin Dose 1 MG; Start 09/17/16 at 13:30 Bisacodyl (Dulcolax Supp) 10 mg BID PRN [place] CONSTIPATION; Start 09/17/16 at 13: 30 Sodium Biphosphate/ Sodium Phosphate (Fleet Enema) 133 ml BID PRN [place] CONSTIPATION; Start 09/17/16 at 13:30 Enoxaparin Sodium (Lovenox) 40 mg DAILY SC Last administered on 09/19/16 09:14 ; Admin Dose 40 MG; Start 09/19/16 at 09:00 Docusate Sodium (Colace) 100 mg BID PO Last administered on 09/19/16 09:08; Admin Dose 100 MG; Start 09/17/16 at 21:00 Diagnostic Test (Pha) (Accu-Chek) 1 ea 02 XX Last administered on 09/19/16 02: 18; Admin Dose 1 EA; Start 09/18/16 at 02:00 Ferrous Sulfate (Ferrous Sulfate (Ec)) 325 mg BID PO Last administered on 09:08; Admin Dose 325 MG; Start 09/17/16 at 21:00 Prednisolone (Prednisolone) 15 mg Q48H PO Last administered on 09/17/16 17:12 ; Admin Dose 15 MG; Start 09/17/16 at 17:30 Lorazepam (Ativan) 0.5 mg Q8H PRN IV agitation; Start 09/17/16 at 16:30 Miscellaneous Information 1 ea NOTE XX ; Start 09/17/16 at 17:00 Glucose (Glutose) 15 gm Q15M PRN PO DECREASED GLUCOSE; Start 09/17/16 at 17:00 Glucose (Glutose) 22.5 gm Q15M PRN PO DECREASED GLUCOSE; Start 09/17/16 at 17: 00 Dextrose (D50w Syringe) 25 ml Q15M PRN IV DECREASED GLUCOSE; Start 09/17/16 at 17:00 Dextrose (D50w Syringe) 50 ml Q15M PRN IV DECREASED GLUCOSE; Start 09/17/16 at 17:00 Glucagon (Glucagen) 1 mg Q15M PRN IM DECREASED GLUCOSE; Start 09/17/16 at 17:00 Glucose (Glutose) 15 gm Q15M PRN BUCCAL DECREASED GLUCOSE; Start 09/17/16 at 17 :00 Ondansetron HCl (Zofran Inj) 4 mg Q4H PRN IV NAUSEA AND/OR VOMITING; Start at 00:30 Insulin Glargine (Lantus) 20 unit DAILY@08 SC Last administered on 09/19/16 08: 14; Admin Dose 20 UNIT; Start 09/18/16 at 08:00 Famotidine (Pepcid) 40 mg HS PO Last administered on 6/30/17at 20:31; Admin Dose 40 MG; Start 09/18/16 at 21:00 Romiplostim (Nplate) 500 mcg ONCE ONCE SC ; Start 09/21/16 at 10:00; Stop at 10:01 TIMO THOMASON DO Sep 19, 2016 09:35
[2016-09-19] MEDS ORDERED: KETOROLAC 30 MG INJ IV PRN (10:00)
--- NOTE | 2016-09-19 11:46 | RADRPT ---
PROCEDURE: Chest 2 views. CLINICAL INDICATION: Shortness of breath. TECHNIQUE: PA and lateral views of the chest were obtained. COMPARISON: April 22, 2016 FINDINGS: The cardiomediastinal silhouette is within normal limits. The lungs are hypoinflated. Atelectasis v ersus mild infiltrates are seen in the retrocardiac left lower lobe. No pneumothorax as visualized. Osseous structures are intact. IMPRESSION: Hypoinflated lungs. Atelectasis versus mild patchy infiltrates in the retrocardiac left lower lobe. RPTAT: AA .Eber Ang MD, Date Time Electronically viewed and signed by .Eber Ang MD, on 09/19/2016 11:46 .P/
--- NOTE | 2016-09-19 14:49 | CONS ---
Date/Time of Note Date/Time of Note DATE: 09/19/16 TIME: 14:45 Assessment/Plan Assessment/Plan Chief Complaint/Hosp Course 31-year-old female with a chronic history of idiopathic thrombocytopenia refractory to multiple lines of medical treatment including steroid use, Imuran , Nplate (romiplostim) as well as rituximab with very little effect per Dr. Higgins, baseline platelet count 20-30K, status post laparoscopic, hand-assisted splenectomy and left lateral hepatectomy and intraoperative ultrasound of the liver on 09/17/16. She received 1 unit of platelets during surgery due to intraoperative bleeding. Per Dr. Luna, the patient has been followed by him since March 2015, last romiplostim was 07/24/16 and she receives 500 mcg monthly. -Per Dr. Luna, will give 500 mcg romiplostim while here as patient has not received this month. per MAY it looks like it is scheduled for September 21 - Will continue to monitor platelet count, currently 29K. Splenectomy unfortunately may not work as would have expected platelet count to increase significantly after splenectomy. - No indication for platelet transfusion unless bleeding in the setting of ITP - Patient should f/u with Dr. Luna upon discharge Problems: (1) Chronic ITP (idiopathic thrombocytopenia) Consultation Date/Type/Reason Admit Date/Time Sep 17, 2016 at 05:30 Initial Consult Date 09/18/16 Type of Consultation: Hematology Reason for Consultation ITP Referring Provider: TALA HIGGINS M.D. 24 HR Interval Summary Free Text/Dictation no acute overnight events. platelets are dropping. no evidence of bleeding Exam/Review of Systems Vital Signs Vitals Vital Signs Date Time Temp Pulse Resp B/P Pulse Ox O2 Delivery O2 Flow Rate FiO2 09/19/16 08:04 98.9 79 20 136/83 96 09/19/16 00:45 Nasal Cannula 09/18/16 20:10 2.0 Intake and Output 09/18/16 09/18/16 09/19/16 15:00 23:00 07:00 Intake Total 625 ml 500 ml Output Total 20 ml Balance 625 ml 480 ml Exam Constitutional: alert Psych: nl mood/affect, no complaints Head: normocephalic Eyes: nl conjunctiva ENMT: nl external ears & nose Neck: non-tender, supple Respiratory: clear to auscultation Cardiovascular: regular rate and rhythm Gastrointestinal: other (SOFY drain), soft, surgical scars Musculoskeletal: nl extremities to inspection, nl gait and stance Results Result Diagram: 09/19/16 0525 09/19/16 0525 Results 24 hrs Laboratory Tests Test 09/18/16 16:57 09/18/16 22:49 09/19/16 02:09 09/19/16 05:25 Bedside Glucose 187 212 214 White Blood Count 6.6 Red Blood Count 2.50 L Hemoglobin 8.8 L Hematocrit 26.8 L Mean Corpuscular Volume 107.2 H Mean Corpuscular Hemoglobin 35.2 H Mean Corpuscular Hemoglobin Concent 32.8 Red Cell Distribution Width 16.3 H Platelet Count 29 #*L Mean Platelet Volume 11.3 H Neutrophils % 65.8 Lymphocytes % 25.5 Monocytes % 8.0 Eosinophils % 0.2 Basophils % 0.2 Nucleated Red Blood Cells % 0.5 H Neutrophils # 4.4 Lymphocytes # 1.7 Monocytes # 0.5 Eosinophils # 0.0 Basophils # 0.0 Nucleated Red Blood Cells # 0.0 Sodium Level 137 Potassium Level 3.6 Chloride Level 96 L Carbon Dioxide Level 25 Anion Gap 20 H Blood Urea Nitrogen 7 Creatinine 0.48 Glucose Level 204 Lactic Acid Level 2.1 Calcium Level 8.9 Phosphorus Level 2.0 L Magnesium Level 1.9 Total Bilirubin 0.4 Direct Bilirubin 0.00 Indirect Bilirubin 0.4 Aspartate Amino Transf (AST/SGOT) 93 H Alanine Aminotransferase (ALT/SGPT) 163 H Alkaline Phosphatase 102 B-Type Natriuretic Peptide 99 Total Protein 7.1 Albumin 4.2 Globulin 2.90 Albumin/Globulin Ratio 1.44 Test 09/19/16 05:26 09/19/16 07:30 09/19/16 07:57 09/19/16 11:57 Prothrombin Time 15.1 H Prothrombin Time Ratio 1.2 INR International Normalized Ratio 1.18 Activated Partial Thromboplast Time 29.3 Lab Scanned Report LAB Bedside Glucose 233 H 177 Medications Medications Current Medications Acetaminophen/ Hydrocodone Bitart ([place] (5/325)) 1 tab Q4H PRN PO PAIN LEVEL 4 -7; Start 09/17/16 at 13:30 Acetaminophen/ Hydrocodone Bitart ([place] (5/325)) 2 tab Q4H PRN PO PAIN LEVEL 7 -10; Start 09/17/16 at 13:30 Hydromorphone HCl (Dilaudid) 0.5 mg Q2H PRN IV PAIN Last administered on 16:47; Admin Dose 0.5 MG; Start 09/17/16 at 13:30 Hydromorphone HCl (Dilaudid) 1 mg Q2H PRN IV PAIN Last administered on 14:04; Admin Dose 1 MG; Start 09/17/16 at 13:30 Bisacodyl (Dulcolax Supp) 10 mg BID PRN [place] CONSTIPATION; Start 09/17/16 at 13: 30 Sodium Biphosphate/ Sodium Phosphate (Fleet Enema) 133 ml BID PRN [place] CONSTIPATION; Start 09/17/16 at 13:30 Enoxaparin Sodium (Lovenox) 40 mg DAILY SC Last administered on 09/19/16 09:14 ; Admin Dose 40 MG; Start 09/19/16 at 09:00 Docusate Sodium (Colace) 100 mg BID PO Last administered on 09/19/16 09:08; Admin Dose 100 MG; Start 09/17/16 at 21:00 Diagnostic Test (Pha) (Accu-Chek) 1 ea 02 XX Last administered on 09/19/16 02: 18; Admin Dose 1 EA; Start 09/18/16 at 02:00 Ferrous Sulfate (Ferrous Sulfate (Ec)) 325 mg BID PO Last administered on 09:08; Admin Dose 325 MG; Start 09/17/16 at 21:00 Prednisolone (Prednisolone) 15 mg Q48H PO Last administered on 09/17/16 17:12 ; Admin Dose 15 MG; Start 09/17/16 at 17:30 Lorazepam (Ativan) 0.5 mg Q8H PRN IV agitation; Start 09/17/16 at 16:30 Miscellaneous Information 1 ea NOTE XX ; Start 09/17/16 at 17:00 Glucose (Glutose) 15 gm Q15M PRN PO DECREASED GLUCOSE; Start 09/17/16 at 17:00 Glucose (Glutose) 22.5 gm Q15M PRN PO DECREASED GLUCOSE; Start 09/17/16 at 17: 00 Dextrose (D50w Syringe) 25 ml Q15M PRN IV DECREASED GLUCOSE; Start 09/17/16 at 17:00 Dextrose (D50w Syringe) 50 ml Q15M PRN IV DECREASED GLUCOSE; Start 09/17/16 at 17:00 Glucagon (Glucagen) 1 mg Q15M PRN IM DECREASED GLUCOSE; Start 09/17/16 at 17:00 Glucose (Glutose) 15 gm Q15M PRN BUCCAL DECREASED GLUCOSE; Start 09/17/16 at 17 :00 Ondansetron HCl (Zofran Inj) 4 mg Q4H PRN IV NAUSEA AND/OR VOMITING; Start at 00:30 Insulin Glargine (Lantus) 20 unit DAILY@08 SC Last administered on 09/19/16 08: 14; Admin Dose 20 UNIT; Start 09/18/16 at 08:00 Famotidine (Pepcid) 40 mg HS PO Last administered on 09/18/16 20:31; Admin Dose 40 MG; Start 09/18/16 at 21:00 Romiplostim (Nplate) 500 mcg ONCE ONCE SC ; Start 09/21/16 at 10:00; Stop at 10:01 Ketorolac Tromethamine (Toradol) 30 mg Q6H PRN IV PAIN; Start 09/19/16 at 10:00 ; Stop 09/22/16 at 09:59 ORLANDO ESCOBAR M.D. Sep 19, 2016 14:49
[2016-09-19] MEDS: predniSOLONE 5 MG TAB PO SCH (17:02)
[2016-09-19 20:07] VITALS: BP 136/79; RESP 19
[2016-09-19] MEDS: FAMOTIDINE 20 MG TAB PO SCH (20:29)
--- NOTE | 2016-09-19 20:57 | PN ---
Date/Time of Note Date/Time of Note DATE: 09/19/16 TIME: 20:53 Assessment/Plan VTE Prophylaxis VTE Prophylaxis Intervention: SCD's VTE Contraindication Reason: thrombocytopenia Lines/Catheters IV Catheter Type (from Nrsg): Saline Lock Urinary Cath still in place: No Assessment/Plan Chief Complaint/Hosp Course 31-year-old female who came in for an elective laparoscopic cholecystectomy and partial hepatectomy for whom we are consulted for medical management 1. Acute shortness of breath and epigastric/chest pain: Improved 2. Type 2 diabetes mellitus: suboptimal control 3. 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 Systemic inflammatory response syndrome secondary to surgery with lactic acidosis Plan: Appreciate Nephrology and hematology recs Continue gentle IV hydration and pain control diet and drain mgt per surgery Will increase insulin dosing for better control Platelet mgt per hematology Thank you for this consult we will continue to follow with you. Problems: Subjective 24 Hr Interval Summary Free Text/Dictation patient doing slightly better, still with pain Exam/Review of Systems Vital Signs Vitals Vital Signs Date Time Temp Pulse Resp B/P Pulse Ox O2 Delivery O2 Flow Rate FiO2 09/19/16 20:07 98.8 106 19 136/79 94 09/19/16 00:45 Nasal Cannula 09/18/16 20:10 2.0 Intake and Output 09/18/16 09/18/16 09/19/16 15:00 23:00 07:00 Intake Total 625 ml 500 ml Output Total 20 ml Balance 625 ml 480 ml Exam Constitutional: alert, oriented Head: normocephalic Eyes: PERRL, No icteric ENMT: mucosa pink and moist Respiratory: clear to auscultation, diminished breath sounds Cardiovascular: regular rate and rhythm Gastrointestinal: bowel sounds (hypoactive), soft, surgical scars, tender Neurological: lethargic, nl mental status Results Result Diagram: 09/19/16 0525 09/19/16 0525 Results 24 hrs Laboratory Tests Test 09/18/16 22:49 09/19/16 02:09 09/19/16 05:25 09/19/16 05:26 Bedside Glucose 212 214 White Blood Count 6.6 Red Blood Count 2.50 L Hemoglobin 8.8 L Hematocrit 26.8 L Mean Corpuscular Volume 107.2 H Mean Corpuscular Hemoglobin 35.2 H Mean Corpuscular Hemoglobin Concent 32.8 Red Cell Distribution Width 16.3 H Platelet Count 29 #*L Mean Platelet Volume 11.3 H Neutrophils % 65.8 Lymphocytes % 25.5 Monocytes % 8.0 Eosinophils % 0.2 Basophils % 0.2 Nucleated Red Blood Cells % 0.5 H Neutrophils # 4.4 Lymphocytes # 1.7 Monocytes # 0.5 Eosinophils # 0.0 Basophils # 0.0 Nucleated Red Blood Cells # 0.0 Sodium Level 137 Potassium Level 3.6 Chloride Level 96 L Carbon Dioxide Level 25 Anion Gap 20 H Blood Urea Nitrogen 7 Creatinine 0.48 Glucose Level 204 Lactic Acid Level 2.1 Calcium Level 8.9 Phosphorus Level 2.0 L Magnesium Level 1.9 Total Bilirubin 0.4 Direct Bilirubin 0.00 Indirect Bilirubin 0.4 Aspartate Amino Transf (AST/SGOT) 93 H Alanine Aminotransferase (ALT/SGPT) 163 H Alkaline Phosphatase 102 B-Type Natriuretic Peptide 99 Total Protein 7.1 Albumin 4.2 Globulin 2.90 Albumin/Globulin Ratio 1.44 Prothrombin Time 15.1 H Prothrombin Time Ratio 1.2 INR International Normalized Ratio 1.18 Activated Partial Thromboplast Time 29.3 Test 09/19/16 07:30 09/19/16 07:57 09/19/16 11:57 09/19/16 17:22 Lab Scanned Report LAB Bedside Glucose 233 H 177 196 Test 09/19/16 20:28 Bedside Glucose 220 Medications Medications Current Medications Acetaminophen/ Hydrocodone Bitart ([place] (5/325)) 1 tab Q4H PRN PO PAIN LEVEL 4 -7; Start 09/17/16 at 13:30 Acetaminophen/ Hydrocodone Bitart ([place] (5/325)) 2 tab Q4H PRN PO PAIN LEVEL 7 -10; Start 09/17/16 at 13:30 Hydromorphone HCl (Dilaudid) 0.5 mg Q2H PRN IV PAIN Last administered on 16:47; Admin Dose 0.5 MG; Start 09/17/16 at 13:30 Hydromorphone HCl (Dilaudid) 1 mg Q2H PRN IV PAIN Last administered on 20:36; Admin Dose 1 MG; Start 09/17/16 at 13:30 Bisacodyl (Dulcolax Supp) 10 mg BID PRN [place] CONSTIPATION; Start 09/17/16 at 13: 30 Sodium Biphosphate/ Sodium Phosphate (Fleet Enema) 133 ml BID PRN [place] CONSTIPATION; Start 09/17/16 at 13:30 Enoxaparin Sodium (Lovenox) 40 mg DAILY SC Last administered on 09/19/16 09:14 ; Admin Dose 40 MG; Start 09/19/16 at 09:00 Docusate Sodium (Colace) 100 mg BID PO Last administered on 09/19/16 20:28; Admin Dose 100 MG; Start 09/17/16 at 21:00 Diagnostic Test (Pha) (Accu-Chek) 1 ea 02 XX Last administered on 09/19/16 02: 18; Admin Dose 1 EA; Start 09/18/16 at 02:00 Ferrous Sulfate (Ferrous Sulfate (Ec)) 325 mg BID PO Last administered on 20:28; Admin Dose 325 MG; Start 09/17/16 at 21:00 Prednisolone (Prednisolone) 15 mg Q48H PO Last administered on 09/19/16 17:02; Admin Dose 15 MG; Start 09/17/16 at 17:30 Lorazepam (Ativan) 0.5 mg Q8H PRN IV agitation; Start 09/17/16 at 16:30 Miscellaneous Information 1 ea NOTE XX ; Start 09/17/16 at 17:00 Glucose (Glutose) 15 gm Q15M PRN PO DECREASED GLUCOSE; Start 09/17/16 at 17:00 Glucose (Glutose) 22.5 gm Q15M PRN PO DECREASED GLUCOSE; Start 09/17/16 at 17: 00 Dextrose (D50w Syringe) 25 ml Q15M PRN IV DECREASED GLUCOSE; Start 09/17/16 at 17:00 Dextrose (D50w Syringe) 50 ml Q15M PRN IV DECREASED GLUCOSE; Start 09/17/16 at 17:00 Glucagon (Glucagen) 1 mg Q15M PRN IM DECREASED GLUCOSE; Start 09/17/16 at 17:00 Glucose (Glutose) 15 gm Q15M PRN BUCCAL DECREASED GLUCOSE; Start 09/17/16 at 17 :00 Ondansetron HCl (Zofran Inj) 4 mg Q4H PRN IV NAUSEA AND/OR VOMITING; Start at 00:30 Insulin Glargine (Lantus) 20 unit DAILY@08 SC Last administered on 7/1/17at 08: 14; Admin Dose 20 UNIT; Start 09/18/16 at 08:00 Famotidine (Pepcid) 40 mg HS PO Last administered on 09/19/16t 20:29; Admin Dose 40 MG; Start 09/18/16 at 21:00 Romiplostim (Nplate) 500 mcg ONCE ONCE SC ; Start 09/21/16 at 10:00; Stop at 10:01 Ketorolac Tromethamine (Toradol) 30 mg Q6H PRN IV PAIN; Start 09/19/16 at 10:00 ; Stop 09/22/16 at 09:59 DEVORA KEITA Sep 19, 2016 20:57
[2016-09-20] MEDS: ACCU-CHEK XX SCH (02:00)
[2016-09-20] MEDS: HYDROmorphONE 1 MG/ML SYG IV PRN ×2 (02:21→04:54)
[2016-09-20 06:00] LABS: ABNORMAL IP MESSAGE 1; BASOPHILS % 0.2 % (0.0-2.0); EOSINOPHILS % 0.2 % (0.0-7.0); HEMATOCRIT 24.3 % (37.0-47.0); LYMPHOCYTES # 1.4 10^3/ul (0.8-2.9); LYMPHOCYTES % 24.8 % (15.0-51.0); MEAN CORPUSCULAR HEMOGLOBIN 34.8 pg (29.0-33.0); MEAN CORPUSCULAR HGB CONC 32.9 g/dl (32.0-37.0); MEAN CORPUSCULAR VOLUME 105.7 fl (82.0-101.0); MEAN PLATELET VOLUME 12.2 fl (7.4-10.4); MONOCYTE # 0.4 10^3/ul (0.3-0.9); MONOCYTES % 7.8 % (0.0-11.0); NEUTROPHIL # 3.8 10^3/ul (1.6-7.5); NEUTROPHILS % 66.8 % (39.0-77.0); NUCLEATED RED BLOOD CELLS% 0.5 /100WBC (0.0-0.0); WHITE BLOOD COUNT 5.6 10^3/ul (4.8-10.8)
[2016-09-20 06:01] LABS: INR 1.14; PROTIME 14.6 Sec (12.2-14.2); PT RATIO 1.1
[2016-09-20 06:02] LABS: PARTIAL THROMBOPLASTIN TIME 28.6 Sec (25.0-35.0)
[2016-09-20 06:27] LABS: ALBUMIN 3.9 g/dl (3.3-4.9); ALBUMIN/GLOBULIN RATIO 1.3; BILIRUBIN,INDIRECT 0.3 mg/dl (0-1.1); BILIRUBIN,TOTAL 0.3 mg/dl (0.2-1.3); CALCIUM 8.9 mg/dl (8.4-10.2); CREATININE 0.4 mg/dl (0.44-1.00); MAGNESIUM 2.1 mg/dl (1.7-2.5); PHOSPHORUS 2.8 mg/dl (2.5-4.9); POTASSIUM 3.7 mmol/L (3.5-5.1); TOTAL PROTEIN 6.9 g/dl (6.1-8.1)
[2016-09-20 07:09] LABS: PLATELET COUNT 27 10^3/UL (140-415)
[2016-09-20 07:10] LABS: ADD SCAN DIFF NO
[2016-09-20 07:55] VITALS: BP 111/69; PULSE 86; RESP 18
[2016-09-20] MEDS ORDERED: INSULIN GLARGINE [LANtus] 3 ML PEN SC SCH (08:00)
[2016-09-20] MEDS: DOCUSATE SODIUM 100 MG CAP PO SCH (08:07)
[2016-09-20] MEDS: FERROUS SULFATE (EC) 325 MG TAB PO SCH (08:07)
[2016-09-20] MEDS: INSULIN ASPART [NOVOLOG] 3 ML PEN SC SCH ×5 (08:25→17:30)
[2016-09-20 12:27] VITALS: BP 86/52; PULSE 97
--- NOTE | 2016-09-20 14:37 | PN ---
Date/Time of Note Date/Time of Note DATE: 09/20/16 TIME: 13:52 Assessment/Plan VTE Prophylaxis VTE Prophylaxis Intervention: LMWH Lines/Catheters IV Catheter Type (from Nrs): Saline Lock Urinary Cath still in place: No Assessment/Plan Chief Complaint/Hosp Course 31-year-old female who came in for an elective laparoscopic cholecystectomy and partial hepatectomy for whom we are consulted for medical management 1. Acute shortness of breath and epigastric/chest pain: Improved 2. Type 2 diabetes mellitus: suboptimal control 3. 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 Systemic inflammatory response syndrome secondary to surgery with lactic acidosis: improving Plan: Vascular USS L wrist titrate insulin therapy for improved control encourage IS and OOB Supportive care Patient remains stable for outpt followup once discharge is planned. Problems: Subjective 24 Hr Interval Summary Free Text/Dictation Patient continues to do well c/o of pain and swelling in forearm from IV Exam/Review of Systems Vital Signs Vitals Vital Signs Date Time Temp Pulse Resp B/P Pulse Ox O2 Delivery O2 Flow Rate FiO2 09/20/16 12:27 86/52 09/20/16 07:55 98.3 18 96 Room Air 09/18/16 20:10 2.0 Intake and Output 09/19/16 09/19/16 09/20/16 15:00 23:00 07:00 Intake Total 300 ml Output Total 40 ml 10 ml Balance -40 ml 290 ml Exam Constitutional: alert, oriented Head: atraumatic, normocephalic Neck: non-tender, supple Respiratory: clear to auscultation Cardiovascular: regular rate and rhythm Gastrointestinal: nl liver, spleen, non-tender, soft Extremities: normal pulses, pain and swelling L wrist Results Result Diagram: 09/20/16 0520 09/20/16 0520 Results 24 hrs Laboratory Tests Test 09/19/16 17:22 09/19/16 20:28 09/20/16 02:22 09/20/16 05:20 Bedside Glucose 196 220 219 White Blood Count 5.6 Red Blood Count 2.30 L Hemoglobin 8.0 L Hematocrit 24.3 L Mean Corpuscular Volume 105.7 H Mean Corpuscular Hemoglobin 34.8 H Mean Corpuscular Hemoglobin Concent 32.9 Red Cell Distribution Width 16.0 H Platelet Count 27 *L Mean Platelet Volume 12.2 H Neutrophils % 66.8 Lymphocytes % 24.8 Monocytes % 7.8 Eosinophils % 0.2 Basophils % 0.2 Nucleated Red Blood Cells % 0.5 H Neutrophils # 3.8 Lymphocytes # 1.4 Monocytes # 0.4 Eosinophils # 0.0 Basophils # 0.0 Nucleated Red Blood Cells # 0.0 Prothrombin Time 14.6 H Prothrombin Time Ratio 1.1 INR International Normalized Ratio 1.14 Activated Partial Thromboplast Time 28.6 Sodium Level 137 Potassium Level 3.7 Chloride Level 96 L Carbon Dioxide Level 28 Anion Gap 17 H Blood Urea Nitrogen 7 Creatinine 0.40 L Glucose Level 196 Calcium Level 8.9 Phosphorus Level 2.8 Magnesium Level 2.1 Total Bilirubin 0.3 Direct Bilirubin 0.00 Indirect Bilirubin 0.3 Aspartate Amino Transf (AST/SGOT) 44 Alanine Aminotransferase (ALT/SGPT) 117 H Alkaline Phosphatase 97 B-Type Natriuretic Peptide 33 Total Protein 6.9 Albumin 3.9 Globulin 3.00 Albumin/Globulin Ratio 1.30 Test 09/20/16 08:00 09/20/16 12:06 Bedside Glucose 176 163 Medications Medications Current Medications Acetaminophen/ Hydrocodone Bitart ([place] (5/325)) 1 tab Q4H PRN PO PAIN LEVEL 4 -7; Start 09/17/16 at 13:30 Acetaminophen/ Hydrocodone Bitart ([place] (5/325)) 2 tab Q4H PRN PO PAIN LEVEL 7 -10; Start 09/17/16 at 13:30 Hydromorphone HCl (Dilaudid) 0.5 mg Q2H PRN IV PAIN Last administered on 16:47; Admin Dose 0.5 MG; Start 09/17/16 at 13:30 Hydromorphone HCl (Dilaudid) 1 mg Q2H PRN IV PAIN Last administered on 04:54; Admin Dose 1 MG; Start 09/17/16 at 13:30 Bisacodyl (Dulcolax Supp) 10 mg BID PRN [place] CONSTIPATION; Start 09/17/16 at 13: 30 Sodium Biphosphate/ Sodium Phosphate (Fleet Enema) 133 ml BID PRN [place] CONSTIPATION; Start 09/17/16 at 13:30 Docusate Sodium (Colace) 100 mg BID PO Last administered on 09/20/16 08:07; Admin Dose 100 MG; Start 09/17/16 at 21:00 Diagnostic Test (Pha) (Accu-Chek) 1 ea 02 XX Last administered on 09/19/16 02: 18; Admin Dose 1 EA; Start 09/18/16 at 02:00 Ferrous Sulfate (Ferrous Sulfate (Ec)) 325 mg BID PO Last administered on 08:07; Admin Dose 325 MG; Start 09/17/16 at 21:00 Prednisolone (Prednisolone) 15 mg Q48H PO Last administered on 09/19/16 17:02; Admin Dose 15 MG; Start 09/17/16 at 17:30 Lorazepam (Ativan) 0.5 mg Q8H PRN IV agitation; Start 09/17/16 at 16:30 Miscellaneous Information 1 ea NOTE XX ; Start 09/17/16 at 17:00 Glucose (Glutose) 15 gm Q15M PRN PO DECREASED GLUCOSE; Start 09/17/16 at 17:00 Glucose (Glutose) 22.5 gm Q15M PRN PO DECREASED GLUCOSE; Start 09/17/16 at 17: 00 Dextrose (D50w Syringe) 25 ml Q15M PRN IV DECREASED GLUCOSE; Start 09/17/16 at 17:00 Dextrose (D50w Syringe) 50 ml Q15M PRN IV DECREASED GLUCOSE; Start 09/17/16 at 17:00 Glucagon (Glucagen) 1 mg Q15M PRN IM DECREASED GLUCOSE; Start 09/17/16 at 17:00 Glucose (Glutose) 15 gm Q15M PRN BUCCAL DECREASED GLUCOSE; Start 09/17/16 at 17 :00 Ondansetron HCl (Zofran Inj) 4 mg Q4H PRN IV NAUSEA AND/OR VOMITING; Start at 00:30 Famotidine (Pepcid) 40 mg HS PO Last administered on 09/19/16 20:29; Admin Dose 40 MG; Start 09/18/16 at 21:00 Romiplostim (Nplate) 500 mcg ONCE ONCE SC ; Start 09/21/16 at 10:00; Stop at 10:01 Ketorolac Tromethamine (Toradol) 30 mg Q6H PRN IV PAIN Last administered on 09/20 08:07; Admin Dose 30 MG; Start 09/19/16 at 10:00; Stop 09/22/16 at 09:59 Insulin Glargine (Lantus) 25 unit DAILY@08 SC Last administered on 09/20/16t 08: 26; Admin Dose 25 UNIT; Start 09/20/16 at 08:00 DEVORA KEITA Sep 20, 2016 14:37
--- NOTE | 2016-09-20 15:13 | DS ---
Date/Time of Note Date/Time of Note DATE: 09/20/16 TIME: 15:09 Discharge Summary Admission/Discharge Info Admit Date/Time Sep 17, 2016 at 05:30 Discharge Date/Time Patient Condition: Good Procedures Laparoscopic, hand-assisted, splenectomy and left lateral hepatectomy with intraoperative ultrasound. Hx of Present Illness A very pleasant 31-year-old lady with comorbidities including BMI of 36.5 as well as chronic idiopathic thrombocytopenia (ITP) since late 2014 that has been refractory to medical treatment, presenting with several hepatic masses. S/p laparoscopic, hand-assisted splenectomy and left lateral hepatectomy and intraoperative ultrasound of the liver at [facility] 09/17/16. COMORBIDITIES: 1. Chronic ITP diagnosed late 2014 and refractory to multiple lines of medical treatment including steroid use, Imuran, Nplate (romiplostim) as well as rituximab with very little effect. Platelet counts in the 20s to 30s. Surgical intervention was recommended by Dr. Luna. S/p laparoscopic, hand- assisted splenectomy and left lateral hepatectomy and intraoperative ultrasound of the liver at [facility] 09/17/16 2. BMI 36.5. 3. Anemia. 4. Diabetes mellitus. 5. Adnexal cyst. 6. Hearing loss in the left side. 7. Status post . 8. Multiple liver lesions that appear to be homogeneously arterially phases, enhancing hepatic lesions with differential including hepatic adenomas, hemangiomas, focal nodular hyperplasia, or hypervascular metastatic disease as seen on abdominal and pelvic CT 04/21/2016. Abdominal ultrasound on 04/21/2016 showed enlarged fatty liver and above-mentioned masses measuring up to 6 cm. A contrast MRI 04/24/2016 again showed multiple arterially enhancing liver lesions , one of which was 4.2 x 5.9 cm (distal edge of segment 2), a second one was 1.8 cm (again in segment 2 but more immediately), additional 4 to 5 smaller lesions within the right lobe were noted all showing washout on 30 second delay , and mostly isointense the liver on delayed images. Central areas of hypointensity seen within the 2 left lobe lesions fill in, and there is a suggestion of mild hyperintense appearance on the 60 second delayed films, best seen on image 26. 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 9. A 5 mm cystic pancreatic tail lesion again seen on the MRI. Hospital Course Patient underwent an otherwise uncomplicated laparoscopic, hand-assisted splenectomy and left lateral hepatectomy and intraoperative ultrasound of the liver at [facility] 09/17/16. For a detailed report, please see my op note from same date. Post op, patient did very well without any evidence for major post- operative complication or wound problems. Only notable feature was lack of significant increase in patient's platelet count postoperatively. By the time of discharge, patient was tolerating a regular diet, had adequate pain control on oral pain medications, had shown return of bowel activity and was clinically stable. Patient is therefore being discharged today pending results of the upper extremity ultrasound that will be followed up by internal medicine. In addition to regular home meds, I also wrote for: 1. [place] (5) 45 tabs and no refill 2. Colace 25 and 2 3. Dulcolax 10 and 3 Other consultants notes: 31-year-old female who came in for an elective laparoscopic cholecystectomy and partial hepatectomy for whom we are consulted for medical management 1. Acute shortness of breath and epigastric/chest pain: Improved 2. Type 2 diabetes mellitus: suboptimal control 3. 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 Systemic inflammatory response syndrome secondary to surgery with lactic acidosis: improving Plan: Vascular USS upper extremity Continue IV hydration titrate insulin therapy for improved control encourage IS and OOB Supportive care Thank you for this consult we will continue to follow with you. Home Meds Reported Medications Norgestimate-Ethinyl Estradiol (Norgestimate-Ethinyl Estradiol) 0.035-0.18 Mg Tablet, 1 TAB PO DAILY, TAB 09/17/16 Ferrous Sulfate* (Ferrous Sulfate*) 325 Mg Tabec, 325 MG PO BID, TAB 08/26/16 Metformin* (Glucophage*) 1,000 Mg Tablet, 1000 MG PO BID, #60 TAB 08/26/16 Omeprazole* (Omeprazole*) 20 Mg Capsule.dr, 20 MG PO DAILY, #30 CAP 08/26/16 Prednisolone* (Prednisolone*) 5 Mg Tablet, 15 MG PO every other day, TAB 08/26/16 Primary Care Provider Not On Staff Doctor Pending Labs Laboratory Tests Test 09/19/16 17:22 09/19/16 20:28 09/20/16 02:22 09/20/16 05:20 Bedside Glucose 196mg/dL (70-220) 220mg/dL (70-220) 219mg/dL (70-220) White Blood Count 5.610^3/ul (4.8-10.8) Red Blood Count 2.3010^6/ul (4.20-5.40) Hemoglobin 8.0g/dl (12.0-16.0) Hematocrit 24.3% (37.0-47.0) Mean Corpuscular Volume 105.7fl (82.0-101.0) Mean Corpuscular Hemoglobin 34.8pg (29.0-33.0) Mean Corpuscular Hemoglobin Concent 32.9g/dl (32.0-37.0) Red Cell Distribution Width 16.0% (11.5-14.5) Platelet Count 2710^3/UL (140-415) Mean Platelet Volume 12.2fl (7.4-10.4) Neutrophils % 66.8% (39.0-77.0) Lymphocytes % 24.8% (15.0-51.0) Monocytes % 7.8% (0.0-11.0) Eosinophils % 0.2% (0.0-7.0) Basophils % 0.2% (0.0-2.0) Nucleated Red Blood Cells % 0.5/100WBC (0.0-0.0) Neutrophils # 3.810^3/ul (1.6-7.5) Lymphocytes # 1.410^3/ul (0.8-2.9) Monocytes # 0.410^3/ul (0.3-0.9) Eosinophils # 0.010^3/ul (0.0-0.5) Basophils # 0.010^3/ul (0.0-0.1) Nucleated Red Blood Cells # 0.010^3/ul (0.0-0.0) Prothrombin Time 14.6Sec (12.2-14.2) Prothrombin Time Ratio 1.1 INR International Normalized Ratio 1.14 Activated Partial Thromboplast Time 28.6Sec (25.0-35.0) Sodium Level 137mmol/L (135-144) Potassium Level 3.7mmol/L (3.5-5.1) Chloride Level 96mmol/L (97-110) Carbon Dioxide Level 28mmol/L (21-31) Anion Gap 17 (8-16) Blood Urea Nitrogen 7mg/dl (7-20) Creatinine 0.40mg/dl (0.44-1.00) Glucose Level 196mg/dl (70-220) Calcium Level 8.9mg/dl (8.4-10.2) Phosphorus Level 2.8mg/dl (2.5-4.9) Magnesium Level 2.1mg/dl (1.7-2.5) Total Bilirubin 0.3mg/dl (0.2-1.3) Direct Bilirubin 0.00mg/dl (0.00-0.20) Indirect Bilirubin 0.3mg/dl (0-1.1) Aspartate Amino Transf (AST/SGOT) 44IU/L (15-46) Alanine Aminotransferase (ALT/SGPT) 117IU/L (13-69) Alkaline Phosphatase 97IU/L (42-121) B-Type Natriuretic Peptide 33PG/ML (0-125) Total Protein 6.9g/dl (6.1-8.1) Albumin 3.9g/dl (3.3-4.9) Globulin 3.00g/dl (1.3-3.2) Albumin/Globulin Ratio 1.30 Test 09/20/16 08:00 09/20/16 12:06 Bedside Glucose 176mg/dL (70-220) 163mg/dL (70-220) TALA HIGGINS M.D. Sep 20, 2016 15:12
--- NOTE | 2016-09-20 15:15 | PDOCDIS ---
Discharge Instructions DIAGNOSIS Discharge Diagnosis ITP that failed medical management; s/p laparoscopic, hand-assisted splenectomy and left lateral hepatectomy and intraoperative ultrasound of the liver at [facility] . CONDITION Patient Condition: Good HOME CARE INSTRUCTIONS: Diet Instructions: RegularSpecial Diet: full liq. ACTIVITY: Activity Restrictions: Avoid heavy lifting Do not Drive Bathing Restrictions: Shower OTHER ORDERS: Other Orders: "Please call [phone] if any of fever, nausea, vomiting, discharge from wound, wound redness, increase or sudden pain, blood in stool or vomit, or any other unusual signs or symptoms. Also, please call the same number in a few days to schedule an appointment for your follow up visit. Showers OK. No swimming, hot tub or bath for 2 weeks. No lifting more than 25 lbs for 8 weeks. Please record drain output and keep a daily log of the output and bring it to your next office visit which should be in the next 1-2 weeks. Please call the above number for appointment. " TALA HIGGINS M.D. Sep 20, 2016 15:14
[2016-09-20] MEDS ORDERED: HYDR-3498 PO (15:17)
[2016-09-20] MEDS ORDERED: DOCU-216 PO (15:17)
[2016-09-20] MEDS ORDERED: BISA10SU75 PR (15:17)
--- NOTE | 2016-09-20 15:35 | RADRPT ---
PROCEDURE: Left upper extremity venous ultrasound CLINICAL INDICATION: Left arm pain and swelling. Deep venous thrombosis. TECHNIQUE: Sharp scale, color doppler, spectral doppler ultrasound imaging of the venous system of the left upper extremity. Augmentation maneuvers were utilized. COMPARISON: No prior studies are available for comparison. FINDINGS: LEFT: Internal jugular vein: Patent. Subclavian vein: Patent. Axillary vein: Patent. Brachial vein: Patent. Basilic vein: Patent. Cephalic vein: Patent. Radial vein: Patent. Ulnar vein: Patent. IMPRESSION: No evidence of a deep vein thrombosis involving the left upper extremity. RPTAT: AADD .Delonte Obando MD, MD Date Time Electronically viewed and signed by .Delonte Obando MD, on 09/20/2016 15:34 .B/
[2016-09-20] MEDS ORDERED: INSULIN ASPART [NOVOLOG] 3 ML PEN SC SCH (18:00)
[2016-09-21] MEDS ORDERED: INSULIN GLARGINE [LANtus] 3 ML PEN SC SCH (08:00)
[2016-09-21] MEDS ORDERED: ROMIPLOSTIM 250 MCG/0.5 ML SC ONE (10:00)
--- NOTE | 2016-09-21 20:55 | RADRPT ---
Vent Rate: 104 bpm RR Interval: 0 msec [place] Interval: 188 msec QRS Duration: 86 msec QT Interval: 360 msec QTC Interval: 473 msec P-R-T [place]: 51 - 16 - 46 degrees Sinus tachycardia Otherwise normal ECG Electronically Signed By: Ramone Vásquez [id number]
== END 2016-09-20 19:40 | disposition home or self-care (01) | DRG 800 ==
LOC: REC 05:30 → TEL 17:36 → MS2 09-19 00:52
PROVIDERS: ADMIT Transplant Surgery; ATTEND Transplant Surgery
PROC: 0FB20ZZ Excision of Left Lobe Liver, Open Approach (ICD-10-PCS; 2016-09-17)
PROC: 30233R1 Transfusion of Nonautologous Platelets into Peripheral Vein, Percutaneous Approach (ICD-10-PCS; 2016-09-17)
PROC: 07TP0ZZ Resection of Spleen, Open Approach (ICD-10-PCS; principal; 2016-09-17 09:00)
DX: D69.3 Immune thrombocytopenic purpura (principal); K86.2 Cyst of pancreas; K76.0 Fatty (change of) liver, not elsewhere classified; R65.10 Systemic inflammatory response syndrome (SIRS) of non-infectious origin without acute organ dysfunction; K56.7 Ileus, unspecified; E66.9 Obesity, unspecified; J98.11 Atelectasis; D64.9 Anemia, unspecified; E11.9 Type 2 diabetes mellitus without complications; H91.92 Unspecified hearing loss, left ear; G89.29 Other chronic pain; R06.02 Shortness of breath; F41.9 Anxiety disorder, unspecified; Z68.36 Body mass index [BMI] 36.0-36.9, adult; D13.4 Benign neoplasm of liver
CPT/HCPCS: 36430; 71010; 71020; 80053; 82150; 82962; 83605; 83690; 83735; 83880; 84100; 85025; 85610; 85730; 86644; 86850; 86900; 86901; 88305; 88307; 93005; 93922; J1940; J0690; J1170; J1200; J1644; J1650; J1815; J1885; J2175; J2250; J2270; J2370; J2405; J2796; J3010; J3480; J7030; J7040; J7050; J7510; P9035

== ENCOUNTER 2016-09-25 12:55 | Inpatient (IN) | payer OTHER ==
[~2016-09-25] VITALS: Ht 165.1 cm; Wt 99.2 kg
[~2016-09-25 12:55] MED LIST changes: +BISA10SU75 PR; +DOCU-216 PO; +HYDR-3498 PO; +NORG1TAB65 PO
[2016-09-25 12:56] VITALS: Ht 165.1 cm; Wt 99.2 kg
[2016-09-25] MEDS ORDERED: HYDROmorphONE 1 MG/ML SYG IV STA ×3 (13:16→14:30)
[2016-09-25] MEDS ORDERED: ONDANSETRON 4 MG INJ IV STA (13:16)
[2016-09-25] MEDS ORDERED: SOD CHLORIDE 0.9% 1,000 ML IV STA ×2 (13:16→13:24)
[2016-09-25 13:35] LABS: ADD SCAN DIFF NO
[2016-09-25 13:38] LABS: ABNORMAL IP MESSAGE 1; HEMATOCRIT 25.3 % (37.0-47.0); HEMOGLOBIN 8.5 g/dl (12.0-16.0); MEAN CORPUSCULAR HEMOGLOBIN 35.6 pg (29.0-33.0); MEAN CORPUSCULAR HGB CONC 33.6 g/dl (32.0-37.0); MEAN CORPUSCULAR VOLUME 105.9 fl (82.0-101.0); MEAN PLATELET VOLUME 11.7 fl (7.4-10.4); PLATELET COUNT 31 10^3/UL (140-415); RED BLOOD COUNT 2.39 10^6/ul (4.20-5.40); WHITE BLOOD COUNT 7.1 10^3/ul (4.8-10.8)
[2016-09-25] MEDS ORDERED: METF1000 PO (13:43)
[2016-09-25] MEDS ORDERED: FER325 PO (13:44)
[2016-09-25 13:54] LABS: INR 1.18; PROTIME 15.1 Sec (12.2-14.2); PT RATIO 1.2
[2016-09-25 13:55] LABS: ALBUMIN 4.1 g/dl (3.3-4.9); ALBUMIN/GLOBULIN RATIO 1.32; BILIRUBIN,INDIRECT 0.1 mg/dl (0-1.1); BILIRUBIN,TOTAL 0.1 mg/dl (0.2-1.3); CALCIUM 8.5 mg/dl (8.4-10.2); CREATININE 0.52 mg/dl (0.44-1.00); PARTIAL THROMBOPLASTIN TIME 32.6 Sec (25.0-35.0); POTASSIUM 3.4 mmol/L (3.5-5.1); TOTAL PROTEIN 7.2 g/dl (6.1-8.1)
[2016-09-25 14:02] LABS: ADD UMIC YES; UR ASCORBIC ACID NEGATIVE (NEGATIVE); UR BACTERIA FEW /HPF (NONE SEEN); UR BILIRUBIN (Dip) NEGATIVE (NEGATIVE); UR BLOOD (Dip) 1+ mg/dL (NEGATIVE); UR CLARITY CLOUDY (CLEAR); UR COLOR AMBER (YELLOW); UR GLUCOSE (Dip) 1+ mg/dL (NEGATIVE); UR KETONES (Dip) TRACE mg/dL (NEGATIVE); UR LEUKOCYTE ESTERASE (Dip) TRACE Leu/ul (NEGATIVE); UR MUCUS MODERATE /HPF (NONE SEEN); UR NITRITE (Dip) NEGATIVE (NEGATIVE); UR RBC 1 /HPF (0-5); UR SPECIFIC GRAVITY (Dip) 1.017 (1.003-1.030); UR SQUAMOUS EPITHELIAL CELL FEW /HPF (FEW); UR TOTAL PROTEIN (Dip) 1+ mg/dl (NEGATIVE); UR UROBILINOGEN (Dip) 1+ mg/dL (NEGATIVE)
[2016-09-25 14:05] LABS: EOSINOPHILS # 0.1 10^3/ul (0.0-0.5); LYMPHOCYTES # 1.7 10^3/ul (0.8-2.9); MONOCYTE # 0.3 10^3/ul (0.3-0.9); NEUTROPHIL # 4.9 10^3/ul (1.6-7.5)
[2016-09-25 14:07] LABS: PLATELET ESTIMATE PLT APPEAR DECREASED
--- NOTE | 2016-09-25 14:51 | ERA ---
ER Documentation Chief Complaint Date/Time DATE: 09/25/16 TIME: 14:45 Chief Complaint 10/10 lower abd pain x 2 days abd surgery on 09/17 HPI 31-year-old female who is approximately 8 days postop from a splenectomy and partial hepatectomy who presents with abdominal pain. She states that she was at an outside hospital and discharged today and told to come to the emergency room. She states that she has a drain to the left side of her abdomen that is draining but she describes 10 out of 10 abdominal pain. She denies constipation , no vomiting. No fevers or chills. Pain is constant. ROS All systems reviewed and are negative except as per history of present illness. Medications Home Meds Active Scripts Hydrocodone Bit-Acetaminophen (Hydrocodone Bit-APAP) 5-325MG Tablet, 2 TAB PO Q4H Y for PAIN LEVEL 7-10 for 14 Days, #45 TAB 0 Refills Prov:TALA HIGGINS M.D. 09/20/16 Reported Medications Ferrous Sulfate* (Ferrous Sulfate*) 325 Mg Tabec, 325 MG PO BID, TAB 09/25/16 Metformin Hcl* (Metformin Hcl*) 1,000 Mg Tablet, 1000 MG PO WITH BREAKFAST DINNE , #60 TAB 09/25/16 Discontinued Reported Medications Norgestimate-Ethinyl Estradiol (Norgestimate-Ethinyl Estradiol) 0.035-0.18 Mg Tablet, 1 TAB PO DAILY, TAB 09/17/16 Ferrous Sulfate* (Ferrous Sulfate*) 325 Mg Tabec, 325 MG PO BID, TAB 08/26/16 Metformin* (Glucophage*) 1,000 Mg Tablet, 1000 MG PO BID, #60 TAB 08/26/16 Omeprazole* (Omeprazole*) 20 Mg Capsule.dr, 20 MG PO DAILY, #30 CAP 08/26/16 Prednisolone* (Prednisolone*) 5 Mg Tablet, 15 MG PO every other day, TAB 08/26/16 Discontinued Scripts Docusate Sodium (Dok) 100 Mg Capsule, 100 MG PO BID for 14 Days, #25 CAP 2 Refills Prov:TALA HIGGINS M.D. 09/20/16 Bisacodyl* (Bisacodyl*) 10 Mg Supp, 10 MG UT BID Y for CONSTIPATION for 14 Days , #10 SUPP 3 Refills Prov:TALA HIGGINS M.D. 09/20/16 Allergies Allergies: Coded Allergies: No Known Drug Allergies (Verified Allergy, Unknown, 09/25/16) PMhx/Soc History of Surgery: Yes (, SPLEENECTOMY AND PARTIAL HEPATECTOMY ) Anesthesia Reaction: No Hx Neurological Disorder: No Hx Respiratory Disorders: No Hx Cardiac Disorders: Yes (HTN) Hx Psychiatric Problems: No Hx Miscellaneous Medical Probl: Yes (ITP, DM ) Hx Alcohol Use: No Hx Substance Use: No Hx Tobacco Use: No Smoking Status: Never smoker FmHx Family History: No diabetes Physical Exam Vitals Vital Signs Date Time Temp Pulse Resp B/P Pulse Ox O2 Delivery O2 Flow Rate FiO2 09/25/16 13:25 97.7 101 18 129/75 98 Room Air 09/25/16 12:56 97.7 121 18 105/80 95 Physical Exam General: Uncomfortable and tearful Head: Normocephalic, atraumatic. Eyes: Pupils equally reactive, EOM intact ENT: Moist mucous membranes Neck: Supple, no lymphadenopathy Respiratory: Lungs clear bilaterally, no distress Cardiovascular: RRR, no murmurs, rubs, or gallops Abdominal: Mild diffuse tenderness, hyperesthesia noted to the skin, SOFY drain appears to be intact and draining serosanguineous fluid : Deferred MSK: No edema, no unilateral swelling, 5/5 strength Neurologic: Alert and oriented, moving all extremities, normal speech, no focal weakness, no cerebellar signs Skin: No rash Psych: Normal mood Result Diagram: 09/25/16 1320 09/25/16 1320 Results 24 hrs Laboratory Tests Test 09/25/16 13:20 White Blood Count 7.110^3/ul Red Blood Count 2.3910^6/ul Hemoglobin 8.5g/dl Hematocrit 25.3% Mean Corpuscular Volume 105.9fl Mean Corpuscular Hemoglobin 35.6pg Mean Corpuscular Hemoglobin Concent 33.6g/dl Red Cell Distribution Width 16.0% Platelet Count 3110^3/UL Mean Platelet Volume 11.7fl Neutrophils % 69.0% Band Neutrophils % 2.0% Lymphocytes % 24.0% Monocytes % 4.0% Eosinophils % 1.0% Neutrophils # 4.910^3/ul Lymphocytes # 1.710^3/ul Monocytes # 0.310^3/ul Eosinophils # 0.110^3/ul Platelet Estimate PLT APPEAR DECREASED Prothrombin Time 15.1Sec Prothrombin Time Ratio 1.2 INR International Normalized Ratio 1.18 Activated Partial Thromboplast Time 32.6Sec Urine Color CAR Urine Clarity CLOUDY Urine pH 5.0 Urine Specific [place] 1.017 Urine Ketones TRACEmg/dL Urine Nitrite NEGATIVEmg/dL Urine Bilirubin NEGATIVEmg/dL Urine Urobilinogen 1+mg/dL Urine Leukocyte Esterase TRACELeu/ul Urine Microscopic RBC 1/HPF Urine Microscopic WBC 12/HPF Urine Squamous Epithelial Cells FEW/HPF Urine Bacteria FEW/HPF Urine Mucus MODERATE/HPF Urine Hemoglobin 1+mg/dL Urine Glucose 1+mg/dL Urine Total Protein 1+mg/dl Sodium Level 131mmol/L Potassium Level 3.4mmol/L Chloride Level 97mmol/L Carbon Dioxide Level 25mmol/L Anion Gap 12 Blood Urea Nitrogen 6mg/dl Creatinine 0.52mg/dl Glucose Level 216mg/dl Lactic Acid Level 1.9mmol/L Calcium Level 8.5mg/dl Total Bilirubin 0.1mg/dl Direct Bilirubin 0.00mg/dl Indirect Bilirubin 0.1mg/dl Aspartate Amino Transf (AST/SGOT) 36IU/L Alanine Aminotransferase (ALT/SGPT) 48IU/L Alkaline Phosphatase 103IU/L Total Protein 7.2g/dl Albumin 4.1g/dl Globulin 3.10g/dl Albumin/Globulin Ratio 1.32 Lipase 39U/L Current Medications Medications (Trade) Dose Ordered Sig/Juan Carlos Route PRN Reason Start Time Stop Time Status Last Admin Dose Admin Sodium Chloride (NS) 1,000 ml @ 1,000 mls/hr Q1H STAT IV 09/25/16 13:16 09/25/16 14:15 DC 09/25/16 13:31 Hydromorphone HCl (Dilaudid) 1 mg ONCE STAT IV 09/25/16 13:16 09/25/16 13:19 DC 09/25/16 13:28 Ondansetron HCl 4 mg 4 mg ONCE STAT IV 09/25/16 13:16 09/25/16 13:19 DC 09/25/16 13:28 Sodium Chloride (NS) 1,000 ml @ 1,000 mls/hr Q1H STAT IV 09/25/16 13:24 09/25/16 14:23 DC 09/25/16 13:45 Hydromorphone HCl (Dilaudid) 1 mg ONCE STAT IV 09/25/16 14:30 09/25/16 14:31 DC 09/25/16 14:36 Hydromorphone HCl (Dilaudid) 1 mg ONCE STAT IV 09/25/16 14:30 09/25/16 14:31 DC Ondansetron HCl (Zofran Inj) 4 mg BRIDGE ORDER PRN IV NAUSEA AND/OR VOMITING 09/25/16 15:00 09/26/16 14:59 Acetaminophen (Tylenol Tab) 650 mg ER BRIDGE PRN PO MILD PAIN/FEVER 09/25/16 15:00 09/26/16 14:59 Procedures/MDM EKG, MONITORS, & DIAGNOSTIC IMAGING: CT scan reviewed by her surgeon from outside hospital reported to be normal within the past 24 hours LAB INTERPRETATION: Thrombocytopenia consistent with her history of ITP MEDICAL DECISION MAKING: The patient presents with abdominal pain status post surgical intervention. Broad differential including abscess, constipation, obstruction, postop pain. I spoke to the patient's surgeon Dr. Higgins. He states that the patient had pain issues before and after surgery. He believes this is consistent with her pain and chronic pain. Possibly related to postoperative pain. He reviewed the patient's outside hospital CAT scan imaging and states that there is no acute process and no indication for repeat imaging. He recommends pain control , fluids and inpatient hospitalization. ER COURSE: Patient given multiple doses of pain medication. Laboratory testing shows consistent thrombus cytopenia consistent with her ITP. I kept the patient and/or family informed of laboratory and diagnostic imaging results throughout the emergency room course. DISPOSITION PLAN: Medical surgical admission for management of postoperative abdominal pain CONSULTATION: Accepting care team and consultations: I discussed the current laboratory data, diagnostic imaging and emergency care provided. Admitting team: Dr. Rivas Admitting team indication: Insurance directed Consulting services: Dr. Higgins Departure Diagnosis: Primary Impression: Chronic ITP (idiopathic thrombocytopenia) Additional Impression: Abdominal pain Qualified Code: R10.84 - Generalized abdominal pain Condition: Stable AGNES MORTON MD Sep 25, 2016 14:51
[2016-09-25] MEDS ORDERED: ACETAMINOPHEN 325 MG TAB PO PRN ×2 (15:00→16:30)
[2016-09-25] MEDS ORDERED: NACL 0.9% 3 ML SYG IV SCH (16:30)
[2016-09-25] MEDS ORDERED: DOCUSATE SODIUM 100 MG CAP PO PRN (16:30)
[2016-09-25] MEDS ORDERED: ALBUTEROL/IPRATROPIUM (NEB) 3 ML AMP HHN PRN (16:30)
[2016-09-25] MEDS ORDERED: hydrALAzine 20 MG INJ IV PRN (16:30)
[2016-09-25] MEDS ORDERED: NITROGLYCERIN (SL) 0.4 MG TAB SL PRN (16:30)
[2016-09-25] MEDS ORDERED: NA PHOSPHATE/BIPHOS 133 ML ENEMA PR PRN (16:30)
[2016-09-25] MEDS ORDERED: HYDROCODONE/APAP (5/325) TAB PO PRN (16:30)
[2016-09-25] MEDS ORDERED: MAGNESIUM HYDROXIDE 30ML CUP PO PRN (16:30)
[2016-09-25] MEDS ORDERED: ONDANSETRON 4 MG INJ IV PRN (16:30)
[2016-09-25] MEDS: ONDANSETRON 4 MG INJ IV PRN ×2 (18:23→20:16)
[2016-09-25] MEDS: SOD CHLORIDE 0.45% 1,000 ML IV SCH (18:34)
[2016-09-25 19:00] VITALS: TEMP 98
--- NOTE | 2016-09-25 19:24 | HP ---
Date/Time of Note Date/Time of Note DATE: 09/25/16 TIME: 19:17 Assessment/Plan VTE Prophylaxis VTE Prophylaxis Intervention: contraindicated, SCD's VTE Contraindication Reason: blood coagulation disorder Assessment/Plan Chief Complaint/Hosp Course 31-year-old female history of ITP, recent splenectomy and hepatectomy, presents with abdominal pain and possible leakage around her SOFY drain that was placed 5 days ago and low platelets. 1. Abdominal pain: Possibly secondary to patient's recent surgery. Apparently CT scan performed 24 hours ago at outside hospital did not show any significant abnormalities. May need to get the records of that scan. Continue pain control medications, get consult with Dr. Rdz, consider repeat CT abdomen pelvis scan. It is possible SOFY drain may need to be repositioned or replaced -Check TSH A1c lipid panel 2. Diabetes: Sliding scale insulin, check A1c 3. Anemia: Monitor CBC daily 4. ITP: Patient's platelets are in the 31,000 range, denies any bleeding -Avoid anticoagulants, monitor CBCs specifically platelets daily 5. GI prophylaxis: PPI 6. DVT prophylaxis: SCDs Problems: HPI/ROS Admit Date/Time Admit Date/Time Hx of Present Illness 31-year-old female past medical history of BMI 36.5, diabetes, ITP, anemia, left -sided hearing loss, adnexal cyst, history of , who presents with abdominal pain. Patient was recently discharged from our hospital on September 20, 2016 after undergoing splenectomy and left lateral hepatectomy secondary to chronic ITP that had been refractory to medical treatment in the past. She states since she left that she has been having abdominal pain, some nausea symptoms, denies vomiting, no fever or chills, no upper or lower GI bleeding, no bleeding from the drain site which is still in place, no diarrhea or constipation, no headaches or dizziness. 2 days ago she went to [facility] because of the abdominal pain and was admitted there, and just received pain medications but no workup was done other than apparently a CT scan of the abdomen and pelvis there. She left the hospital 24 hours ago but continued to have abdominal pain so came here today. PMH/Family/Social Past Surgical History Past Surgical Hx: other (C section, hepatectomy, splenectomy) Family History Significant Family History: no pertinent family hx Social History Alcohol Use: none Smoking Status: Never smoker Drug Use: none Exam/Review of Systems Vital Signs Vitals Vital Signs Date Time Temp Pulse Resp B/P Pulse Ox O2 Delivery O2 Flow Rate FiO2 09/25/16 17:02 89 18 115/70 99 Room Air 09/25/16 13:25 97.7 Exam Exam General: Lying in bed, in mild distress HEENT: Pupils equal round reactive to light extraocular muscles are intact Neck: Supple Respiratory: Slightly decreased breath sounds bilaterally Cardiovascular: S1-S2 heard no rubs or gallops Abdomen: Slightly tender to palpation left lower quadrant near the SOFY drain area , some slight serosanguineous fluid around the drain site, otherwise nontender nondistended normal bowel sounds no rebound or guarding Muscular skeletal: No lower extremity edema bilaterally Neurologic: No focal deficits Labs Result Diagram: 09/25/16 1320 09/25/16 1320 Medications Medications Current Medications Ondansetron HCl (Zofran Inj) 4 mg Q6H PRN IV NAUSEA AND/OR VOMITING; Start 09/25 at 16:30 Acetaminophen (Tylenol Tab) 650 mg Q6H PRN PO PAIN LEVEL 1-3 OR FEVER; Start at 16:30 Acetaminophen/ Hydrocodone Bitart (Tea (5/325)) 1 tab Q6H PRN PO MODERATE PAIN LEVEL 4-6; Start 09/25/16 at 16:30 Morphine Sulfate (morphine) 2 mg Q4H PRN IV SEVERE PAIN LEVEL 7-10; Start at 16:30 Hydromorphone HCl (Dilaudid) 0.5 mg Q4H PRN IV SEVERE PAIN LEVEL 7-10; Start at 16:30 Docusate Sodium (Colace) 100 mg Q12H PRN PO CONSTIPATION; Start 09/25/16 at 16: 30 Magnesium Hydroxide (Milk Of Mag) 30 ml DAILY PRN PO CONSTIPATION; Start at 16:30 Sodium Biphosphate/ Sodium Phosphate (Fleet Enema) 133 ml DAILY PRN MD CONSTIPATION; Start 09/25/16 at 16:30 Pantoprazole 40 mg 40 mg DAILY@06 PO ; Start 09/26/16 at 06:00 Sodium Chloride (1/2 NS) 1,000 ml @ 75 mls/hr [id number] IV Last administered on 09/25/16t 18:34; Admin Dose 75 MLS/HR; Start 09/25/16 at 16:14 Lorazepam (Ativan) 0.5 mg Q6H PRN IV ANXIETY; Start 09/25/16 at 16:30 Hydralazine HCl (Apresoline) 10 mg Q6H PRN IV ELEVATED BLOOD PRESSURE; Start at 16:30 Nitroglycerin (Nitroglycerin (Sl Tab) 0.4 Mg) 1 tab Q5M PRN SL ANGINA; Start at 16:30 Ferrous Sulfate (Ferrous Sulfate (Ec)) 325 mg BID PO ; Start 09/25/16 at 21:00 DONNA ROCHA Sep 25, 2016 19:24
[2016-09-25] MEDS: morphine 2 MG INJ IV PRN (20:16)
[2016-09-25] MEDS: FERROUS SULFATE (EC) 325 MG TAB PO SCH (21:00)
[2016-09-25] MEDS: LORAZEPAM 2 MG INJ IV PRN (22:37)
[2016-09-25 23:00] VITALS: BP 116/66; RESP 19
[2016-09-26 02:00] VITALS: BP 114/58; RESP 20
[2016-09-26] MEDS: ONDANSETRON 4 MG INJ IV PRN (02:47)
[2016-09-26] MEDS: morphine 2 MG INJ IV PRN ×4 (02:47→18:14)
[2016-09-26 04:27] VITALS: PULSE 95
[2016-09-26] MEDS: PANTOPRAZOLE (EC) 40 MG TAB PO SCH (05:01)
[2016-09-26] MEDS: SOD CHLORIDE 0.45% 1,000 ML IV SCH ×3 (05:34→22:10)
[2016-09-26 06:38] LABS: CHOL/HDL RATIO 3.1 RATIO
[2016-09-26 07:44] LABS: THYROID STIMULATING HORMONE 0.499 MIU/L (0.465-4.680)
[2016-09-26 08:31] VITALS: BP 107/57; RESP 16
[2016-09-26] MEDS: LORAZEPAM 2 MG INJ IV PRN (08:59)
[2016-09-26] MEDS: FERROUS SULFATE (EC) 325 MG TAB PO SCH ×2 (09:00→22:12)
--- NOTE | 2016-09-26 09:46 | RADRPT ---
PROCEDURE: Left lower quadrant ultrasound CLINICAL INDICATION: Pain at surgical drain site TECHNIQUE: Sonographic evaluation of the left lower quadrant subcutaneous soft tissues was perform ed. Sharp scale and color imaging was obtained. Images were reviewed on a high-resolution PACS [facility]. COMPARISON: None available FINDINGS: The normal fascial planes and underlying musculature is preserved. Subcutaneous tissues are unremar kable. The visualized vasculature is normal. No mass or fluid collection or other abnormality is s een. IMPRESSION: Unremarkable ultrasound of the lower quadrant soft tissues. No free fluid or abscess identified. RPTAT: HH .Cecilia Santana MD, MD Date Time Electronically viewed and signed by .Cecilia Santana MD, MD on 09/26/2016 09:46 .G/
--- NOTE | 2016-09-26 09:57 | PN ---
Date/Time of Note Date/Time of Note DATE: 09/26/16 TIME: 09:49 Assessment/Plan Lines/Catheters IV Catheter Type (from Nrsg): Peripheral IV Assessment/Plan Assessment/Plan [facility] Progress Note Date of Service: 09/26/16 Today's Impression & Plan: Overall stable with ongoing issues with abdominal pain, primarily at the exit point of the surgical drain. W/u so far negative for major post operative complications (includes info from outside hospital; note we only have the report of the CT and are in process of obtaining images to review). Output of the drain is 140 ml yesterday. Doubt pancreas leak, but will check fluid amylase levels. With above assessment, I've recommended the following for today: 1. Keep inhouse 2. Treat pain and symptoms 3. US check of drain site 4. Drain fluid amylase 5. Labs in am 6. Increase activity 7. Increase ICS 8. Request copy of CT from outside hospital Thank you again for your great care of this very pleasant patient and wonderful family. If there are any questions, please feel free to call me at [phone]. Disclaimer: Inadvertent spelling or grammatical errors are likely due to EHR/ dictation software use and do not reflect on the overall quality of patient care. Updated Clinical Summary: A very pleasant 31-year-old lady with comorbidities including BMI of 36.5 as well as chronic idiopathic thrombocytopenia (ITP) since late 2014 that has been refractory to medical treatment, presenting with several hepatic masses. S/p laparoscopic, hand-assisted splenectomy and left lateral hepatectomy and intraoperative ultrasound of the liver at [facility] 09/17/16. Reported feeling well for the first two days after discharge from [facility], but then started experiencing abdominal pain. Readmitted to [facility] through ED on 09/25/16 for abdominal pain with admission and discharge to outside hospital prior to coming to [facility]. COMORBIDITIES: 1. Chronic ITP diagnosed late 2014 and refractory to multiple lines of medical treatment including steroid use, Imuran, Nplate (romiplostim) as well as rituximab with very little effect. Platelet counts in the 20s to 30s. Surgical intervention was recommended by Dr. Luna. S/p laparoscopic, hand- assisted splenectomy and left lateral hepatectomy and intraoperative ultrasound of the liver at [facility] 09/17/16 2. BMI 36.5. 3. Anemia. 4. Diabetes mellitus. 5. Adnexal cyst. 6. Hearing loss in the left side. 7. Status post . 8. Multiple liver lesions that appear to be homogeneously arterially phases, enhancing hepatic lesions with differential including hepatic adenomas, hemangiomas, focal nodular hyperplasia, or hypervascular metastatic disease as seen on abdominal and pelvic CT 04/21/2016. Abdominal ultrasound on 04/21/2016 showed enlarged fatty liver and above-mentioned masses measuring up to 6 cm. A contrast MRI 04/24/2016 again showed multiple arterially enhancing liver lesions , one of which was 4.2 x 5.9 cm (distal edge of segment 2), a second one was 1.8 cm (again in segment 2 but more immediately), additional 4 to 5 smaller lesions within the right lobe were noted all showing washout on 30 second delay , and mostly isointense the liver on delayed images. Central areas of hypointensity seen within the 2 left lobe lesions fill in, and there is a suggestion of mild hyperintense appearance on the 60 second delayed films, best seen on image 26. 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 9. A 5 mm cystic pancreatic tail lesion again seen on the MRI. Hospital Course Patient underwent an otherwise uncomplicated laparoscopic, hand-assisted splenectomy and left lateral hepatectomy and intraoperative ultrasound of the liver at [facility] 09/17/16. For a detailed report, please see my op note from same date. Post op, patient did very well without any evidence for major post- operative complication or wound problems. Only notable feature was lack of significant increase in patient's platelet count postoperatively. By the time of discharge, patient was tolerating a regular diet, had adequate pain control on oral pain medications, had shown return of bowel activity and was clinically stable. Patient is therefore being discharged today pending results of the upper extremity ultrasound that will be followed up by internal medicine. Subjective: No major events or complaints except for above; no major abd pain in the rest of abdomen and appears semi-controlled with medications; no n/v/d; no sob or cp ; + flatus; + BM and normal; + activity Objective: Vitals: See below Exam: GENERAL: On exam, the patient was laying in bed and appeared to be comfortable and in no acute distress. Occasionally, would express pain in spastic appearing posture. ABDOMEN: Soft, nontender and nondistended with the exception of tenderness disproportionate to exam around drain site. Incisions are clean, dry and intact without any evidence of erythema, edema, discharge, or hernia. Surgery drain ss and trending toward serous. Not bloody and not purulent. There are no peritoneal signs or guarding. SKIN: Skin appears to be pink and feels warm to touch. NEUROLOGIC: Patient is awake, alert, and follows commands appropriately. Exam/Review of Systems Vital Signs Vitals Vital Signs Date Time Temp Pulse Resp B/P Pulse Ox O2 Delivery O2 Flow Rate FiO2 09/26/16 08:31 98.7 104 16 107/57 94 09/25/16 19:00 Room Air Intake and Output 09/25/16 09/25/16 09/26/16 15:00 23:00 07:00 Intake Total 500 ml Output Total 60 ml 80 ml Balance -60 ml 420 ml Results Result Diagram: 09/25/16 1320 09/25/16 1320 TALA HIGGINS M.D. Sep 26, 2016 09:57
[2016-09-26 10:23] LABS: FLUID AMYLASE < 30 U/L; FLUID TYPE ABDOMINAL FLUID
--- NOTE | 2016-09-26 10:55 | PN ---
Date/Time of Note Date/Time of Note DATE: 09/26/16 TIME: 10:50 Assessment/Plan VTE Prophylaxis VTE Prophylaxis Intervention: contraindicated Lines/Catheters IV Catheter Type (from [facility]): Peripheral IV Assessment/Plan Chief Complaint/Hosp Course 1. Abdominal pain. Status post laparoscopic, hand-assisted splenectomy and left lateral hepatectomy on 09/17/2016. The patient still has a SOFY drain in place. Abdominal ultrasound negative for any free fluid or abscess. Hepatobiliary surgeon following the patient. Continue pain control. 2. Chronic ITP refractory to multiple treatments. Status post splenectomy and left lateral hepatectomy on 09/17/2016. 3. Type 2 diabetes mellitus. Hemoglobin A1c 9.3. Continue sliding scale insulin. 4. Multiple liver lesions. Status post left lateral hepatectomy on 09/17/2016 with pathology negative for any malignancy. 5. Obesity. BMI of 36.4 kg/m. Weight reduction advised. 6. Microcytic anemia. Monitor H&H closely. Monitor for any bleeding. 7. Fluids, electrolytes, and nutrition. n.p.o. Continue IV fluids. 8. DVT prophylaxis. Contraindicated. 9. Gastrointestinal prophylaxis. Proton pump inhibitors. 10. Plan. Continue pain control. Encourage ambulation. Follow surgical recommendations. Case discussed with Dr. Rivas. Problems: Subjective 24 Hr Interval Summary Free Text/Dictation Complains of abdominal pain. Denies any nausea vomiting. Remains afebrile. Exam/Review of Systems Vital Signs Vitals Vital Signs Date Time Temp Pulse Resp B/P Pulse Ox O2 Delivery O2 Flow Rate FiO2 09/26/16 08:31 98.7 104 16 107/57 94 09/25/16 19:00 Room Air Intake and Output 09/25/16 09/25/16 09/26/16 15:00 23:00 07:00 Intake Total 500 ml Output Total 60 ml 80 ml Balance -60 ml 420 ml Exam General: Obese 31 year-old female lying in bed in no apparent distress. HEENT: Normocephalic, atraumatic. Eyes: Anicteric sclerae, conjunctivae clear. ENT: Nasal septum midline, oral mucosa moist. Neck supple, no JVD noticed. Respiratory: Bilaterally clear breath sounds. No use of accessory muscles of respiration. No adventitious breath sounds. Cardiovascular: S1, S2 heard. No murmurs or gallops. Abdomen: Soft and nondistended. Bowel sounds positive in all 4 quadrants. Surgical scar the left upper abdominal wall. Left-sided SOFY drain in place that is draining serous fluid. Genitourinary: Deferred. Extremities: No cyanosis, no clubbing, no edema. Peripheral pulses palpable. Neurologic: Cranial nerves II through XII grossly intact. The patient is awake, alert, and oriented. Skin: Normal skin turgor. No skin rashes. Results Result Diagram: 09/25/16 1320 09/25/16 1320 Results 24 hrs Laboratory Tests Test 09/25/16 13:20 09/25/16 13:30 09/25/16 15:50 09/25/16 17:10 White Blood Count 7.1 # Red Blood Count 2.39 L Hemoglobin 8.5 L Hematocrit 25.3 L Mean Corpuscular Volume 105.9 H Mean Corpuscular Hemoglobin 35.6 H Mean Corpuscular Hemoglobin Concent 33.6 Red Cell Distribution Width 16.0 H Platelet Count 31 L Mean Platelet Volume 11.7 H Neutrophils % 69.0 Band Neutrophils % 2.0 Lymphocytes % 24.0 Monocytes % 4.0 Eosinophils % 1.0 Neutrophils # 4.9 Lymphocytes # 1.7 Monocytes # 0.3 Eosinophils # 0.1 Platelet Estimate PLT APPEAR DECREASED Prothrombin Time 15.1 H Prothrombin Time Ratio 1.2 INR International Normalized Ratio 1.18 Activated Partial Thromboplast Time 32.6 Urine Color CAR Urine Clarity CLOUDY A Urine pH 5.0 Urine Specific [place] 1.017 Urine Ketones TRACE A Urine Nitrite NEGATIVE Urine Bilirubin NEGATIVE Urine Urobilinogen 1+ H Urine Leukocyte Esterase TRACE A Urine Microscopic RBC 1 Urine Microscopic WBC 12 H Urine Squamous Epithelial Cells FEW Urine Bacteria FEW A Urine Mucus MODERATE Urine Hemoglobin 1+ H Urine Glucose 1+ H Urine Total Protein 1+ H Sodium Level 131 L Potassium Level 3.4 L Chloride Level 97 Carbon Dioxide Level 25 Anion Gap 12 Blood Urea Nitrogen 6 L Creatinine 0.52 Glucose Level 216 Lactic Acid Level 1.9 0.9 1.8 Calcium Level 8.5 Total Bilirubin 0.1 L Direct Bilirubin 0.00 Indirect Bilirubin 0.1 Aspartate Amino Transf (AST/SGOT) 36 Alanine Aminotransferase (ALT/SGPT) 48 Alkaline Phosphatase 103 Total Protein 7.2 Albumin 4.1 Globulin 3.10 Albumin/Globulin Ratio 1.32 Lipase 39 Free Thyroxine 1.84 Test 09/26/16 05:04 09/26/16 09:00 Hemoglobin A1c 9.3 H Triglycerides Level 86 Cholesterol Level 143 LDL Cholesterol, Calculated 80 HDL Cholesterol 46 Cholesterol/HDL Ratio 3.1 Thyroid Stimulating Hormone (TSH) 0.499 Body Fluid Type ABDOMINAL FLUID Body Fluid Amylase < 30 Medications Medications Current Medications Ondansetron HCl (Zofran Inj) 4 mg Q6H PRN IV NAUSEA AND/OR VOMITING; Start 09/25 at 16:30 Acetaminophen (Tylenol Tab) 650 mg Q6H PRN PO PAIN LEVEL 1-3 OR FEVER; Start at 16:30 Acetaminophen/ Hydrocodone Bitart (Lyme (5/325)) 1 tab Q6H PRN PO MODERATE PAIN LEVEL 4-6; Start 09/25/16 at 16:30 Morphine Sulfate (morphine) 2 mg Q4H PRN IV SEVERE PAIN LEVEL 7-10 Last administered on 09/26/16 06:43; Admin Dose 2 MG; Start 09/25/16 at 16:30 Hydromorphone HCl (Dilaudid) 0.5 mg Q4H PRN IV SEVERE PAIN LEVEL 7-10; Start at 16:30 Docusate Sodium (Colace) 100 mg Q12H PRN PO CONSTIPATION; Start 09/25/16 at 16: 30 Magnesium Hydroxide (Milk Of Mag) 30 ml DAILY PRN PO CONSTIPATION; Start at 16:30 Sodium Biphosphate/ Sodium Phosphate (Fleet Enema) 133 ml DAILY PRN RI CONSTIPATION; Start 09/25/16 at 16:30 Pantoprazole 40 mg 40 mg DAILY@06 PO ; Start 09/26/16 at 06:00 Sodium Chloride (1/2 NS) 1,000 ml @ 75 mls/hr [id number] IV Last administered on 09/25/16 18:34; Admin Dose 75 MLS/HR; Start 09/25/16 at 16:14 Lorazepam (Ativan) 0.5 mg Q6H PRN IV ANXIETY Last administered on 09/26/16 08: 59; Admin Dose 0.5 MG; Start 09/25/16 at 16:30 Hydralazine HCl (Apresoline) 10 mg Q6H PRN IV ELEVATED BLOOD PRESSURE; Start at 16:30 Nitroglycerin (Nitroglycerin (Sl Tab) 0.4 Mg) 1 tab Q5M PRN SL ANGINA; Start at 16:30 Ferrous Sulfate (Ferrous Sulfate (Ec)) 325 mg BID PO ; Start 09/25/16 at 21:00 CELINA AMARO NP Sep 26, 2016 10:55
[2016-09-26] MEDS: INSULIN ASPART [NOVOLOG] 3 ML PEN SC SCH ×4 (11:00→21:00)
[2016-09-26] MEDS ORDERED: GLUCOSE GEL 15 GRAM TUBE BUCCAL PRN (11:30)
[2016-09-26] MEDS ORDERED: GLUCOSE GEL 15 GRAM TUBE PO PRN ×2 (11:30)
[2016-09-26] MEDS ORDERED: DEXTROSE 50% 50 ML SYRINGE IV PRN ×2 (11:30)
[2016-09-26] MEDS ORDERED: GLUCAGON 1 MG INJ IM PRN (11:30)
[2016-09-26] MEDS ORDERED: morphine 2 MG INJ IV ONE (13:30)
[2016-09-26 14:13] LABS: ADD SCAN DIFF NO
[2016-09-26 14:15] LABS: ABNORMAL IP MESSAGE 1; HEMATOCRIT 23.6 % (37.0-47.0); HEMOGLOBIN 7.8 g/dl (12.0-16.0); MEAN CORPUSCULAR HEMOGLOBIN 35.3 pg (29.0-33.0); MEAN CORPUSCULAR HGB CONC 33.1 g/dl (32.0-37.0); MEAN CORPUSCULAR VOLUME 106.8 fl (82.0-101.0); MEAN PLATELET VOLUME 12.3 fl (7.4-10.4); RED BLOOD COUNT 2.21 10^6/ul (4.20-5.40); RED CELL DISTRIBUTION WIDTH 16.2 % (11.5-14.5); WHITE BLOOD COUNT 8.5 10^3/ul (4.8-10.8)
[2016-09-26 14:21] LABS: PLATELET COUNT 28 10^3/UL (140-415)
[2016-09-26 14:39] LABS: CALCIUM 8.5 mg/dl (8.4-10.2); CREATININE 0.49 mg/dl (0.44-1.00); MAGNESIUM 1.8 mg/dl (1.7-2.5); PHOSPHORUS 2.8 mg/dl (2.5-4.9); POTASSIUM 3.9 mmol/L (3.5-5.1)
[2016-09-26 15:27] LABS: LYMPHOCYTES # 1.7 10^3/ul (0.8-2.9); MONOCYTE # 0.3 10^3/ul (0.3-0.9); NEUTROPHIL # 6.5 10^3/ul (1.6-7.5)
[2016-09-26 15:28] LABS: PLATELET ESTIMATE PLT APPEAR DECREASED
[2016-09-26 21:10] VITALS: BP 111/64; RESP 20
[2016-09-26] MEDS: HYDROmorphONE 1 MG/ML SYG IV PRN (22:13)
[2016-09-27 02:00] VITALS: BP 100/67; RESP 18
[2016-09-27] MEDS: HYDROmorphONE 1 MG/ML SYG IV PRN ×3 (02:41→11:27)
[2016-09-27 05:45] LABS: ADD SCAN DIFF NO
[2016-09-27 05:49] LABS: ABNORMAL IP MESSAGE 1; BASOPHILS % 0.2 % (0.0-2.0); EOSINOPHILS # 0.1 10^3/ul (0.0-0.5); EOSINOPHILS % 1.4 % (0.0-7.0); HEMATOCRIT 23.1 % (37.0-47.0); HEMOGLOBIN 7.6 g/dl (12.0-16.0); LYMPHOCYTES # 1.8 10^3/ul (0.8-2.9); LYMPHOCYTES % 28.6 % (15.0-51.0); MEAN CORPUSCULAR HGB CONC 32.9 g/dl (32.0-37.0); MEAN CORPUSCULAR VOLUME 106.5 fl (82.0-101.0); MEAN PLATELET VOLUME 10.8 fl (7.4-10.4); MONOCYTE # 0.6 10^3/ul (0.3-0.9); NEUTROPHIL # 3.8 10^3/ul (1.6-7.5); NEUTROPHILS % 60.5 % (39.0-77.0); NUCLEATED RED BLOOD CELLS% 0.3 /100WBC (0.0-0.0); RED BLOOD COUNT 2.17 10^6/ul (4.20-5.40); RED CELL DISTRIBUTION WIDTH 16.3 % (11.5-14.5); WHITE BLOOD COUNT 6.3 10^3/ul (4.8-10.8)
[2016-09-27 05:50] LABS: ALBUMIN 3.5 g/dl (3.3-4.9); ALBUMIN/GLOBULIN RATIO 1.2; BILIRUBIN,INDIRECT 0.2 mg/dl (0-1.1); BILIRUBIN,TOTAL 0.2 mg/dl (0.2-1.3); CALCIUM 8.1 mg/dl (8.4-10.2); CREATININE 0.52 mg/dl (0.44-1.00); POTASSIUM 3.5 mmol/L (3.5-5.1); TOTAL PROTEIN 6.4 g/dl (6.1-8.1)
[2016-09-27] MEDS: PANTOPRAZOLE (EC) 40 MG TAB PO SCH (05:50)
[2016-09-27 05:55] LABS: PLATELET COUNT 22 10^3/UL (140-415)
[2016-09-27 06:18] LABS: PHOSPHORUS 3.4 mg/dl (2.5-4.9)
[2016-09-27 08:04] VITALS: BP 108/67; RESP 17
[2016-09-27] MEDS: INSULIN ASPART [NOVOLOG] 3 ML PEN SC SCH ×2 (08:23→12:25)
[2016-09-27] MEDS: FERROUS SULFATE (EC) 325 MG TAB PO SCH (08:26)
[2016-09-27] MEDS: SOD CHLORIDE 0.45% 1,000 ML IV SCH (11:29)
--- NOTE | 2016-09-27 11:48 | PN ---
Date/Time of Note Date/Time of Note DATE: 09/27/16 TIME: 11:45 Assessment/Plan Lines/Catheters IV Catheter Type (from Nrsg): Peripheral IV Claire in Place (from Nrsg): No Assessment/Plan Assessment/Plan [facility] Progress Note Date of Service: 09/27/16 Today's Impression & Plan: Overall stable and improved after drain d/c. No indication for acute surgical intervention. No indication for acute transfusion. Ok to d/c from my standpoint. With above assessment, I've recommended the following for today: 1. D/c home 2. F/u with me in 2-3 weeks 3. F/u with primary paper latcher Thank you again for your great care of this very pleasant patient and wonderful family. If there are any questions, please feel free to call me at [phone]. Disclaimer: Inadvertent spelling or grammatical errors are likely due to EHR/ dictation software use and do not reflect on the overall quality of patient care. Updated Clinical Summary: A very pleasant 31-year-old lady with comorbidities including BMI of 36.5 as well as chronic idiopathic thrombocytopenia (ITP) since late 2014 that has been refractory to medical treatment, presenting with several hepatic masses. S/p laparoscopic, hand-assisted splenectomy and left lateral hepatectomy and intraoperative ultrasound of the liver at [facility] 09/17/16. Reported feeling well for the first two days after discharge from [facility], but then started experiencing abdominal pain. Readmitted to [facility] through ED on 09/25/16 for abdominal pain with admission and discharge to outside hospital prior to coming to [facility]. COMORBIDITIES: 1. Chronic ITP diagnosed late 2014 and refractory to multiple lines of medical treatment including steroid use, Imuran, Nplate (romiplostim) as well as rituximab with very little effect. Platelet counts in the 20s to 30s. Surgical intervention was recommended by Dr. Luna. S/p laparoscopic, hand- assisted splenectomy and left lateral hepatectomy and intraoperative ultrasound of the liver at [facility] 09/17/16 2. BMI 36.5. 3. Anemia. 4. Diabetes mellitus. 5. Adnexal cyst. 6. Hearing loss in the left side. 7. Status post . 8. Multiple liver lesions that appear to be homogeneously arterially phases, enhancing hepatic lesions with differential including hepatic adenomas, hemangiomas, focal nodular hyperplasia, or hypervascular metastatic disease as seen on abdominal and pelvic CT 04/21/2016. Abdominal ultrasound on 04/21/2016 showed enlarged fatty liver and above-mentioned masses measuring up to 6 cm. A contrast MRI 04/24/2016 again showed multiple arterially enhancing liver lesions , one of which was 4.2 x 5.9 cm (distal edge of segment 2), a second one was 1.8 cm (again in segment 2 but more immediately), additional 4 to 5 smaller lesions within the right lobe were noted all showing washout on 30 second delay , and mostly isointense the liver on delayed images. Central areas of hypointensity seen within the 2 left lobe lesions fill in, and there is a suggestion of mild hyperintense appearance on the 60 second delayed films, best seen on image 26. 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 9. A 5 mm cystic pancreatic tail lesion again seen on the MRI. Hospital Course Patient underwent an otherwise uncomplicated laparoscopic, hand-assisted splenectomy and left lateral hepatectomy and intraoperative ultrasound of the liver at [facility] 09/17/16. For a detailed report, please see my op note from same date. Post op, patient did very well without any evidence for major post- operative complication or wound problems. Only notable feature was lack of significant increase in patient's platelet count postoperatively. By the time of discharge, patient was tolerating a regular diet, had adequate pain control on oral pain medications, had shown return of bowel activity and was clinically stable. Patient is therefore being discharged today pending results of the upper extremity ultrasound that will be followed up by internal medicine. Subjective: No major events or complaints. Pain much improved after drain d/c. No n/v/d; no sob or cp; + flatus; + BM and normal; + activity Objective: Vitals: See below Exam: GENERAL: On exam, the patient was laying in bed and appeared to be comfortable and in no acute distress. ABDOMEN: Soft, essentially nontender and nondistended. Incisions are clean, dry and intact without any evidence of erythema, edema, discharge, or hernia. Surgery drain site dressing clean. There are no peritoneal signs or guarding. SKIN: Skin appears to be pink and feels warm to touch. NEUROLOGIC: Patient is awake, alert, and follows commands appropriately. Exam/Review of Systems Vital Signs Vitals Vital Signs Date Time Temp Pulse Resp B/P Pulse Ox O2 Delivery O2 Flow Rate FiO2 09/27/16 08:04 98.2 100 17 108/67 93 09/25/16 19:00 Room Air Intake and Output 09/26/16 09/26/16 09/27/16 15:00 23:00 07:00 Intake Total 900 ml 240 ml Output Total 1200 ml Balance -300 ml 240 ml Results Result Diagram: 09/27/16 0425 09/27/16 0425 TALA HIGGINS M.D. Sep 27, 2016 11:48 Results Result Diagram: 09/27/16 0425 09/27/16 0425 TALA HIGGINS M.D. Sep 27, 2016 11:48
--- NOTE | 2016-09-27 12:32 | PDOCDIS ---
Discharge Instructions CONDITION Patient Condition: Stable HOME CARE INSTRUCTIONS: Special Diet: Regular FOLLOW UP/APPOINTMENTS Follow-up Plan 1.Follow up with primary care physician in 1 week If you don't have one please let someone know, we can give you resources that may help you pick one. You may also call your insurance company to assign one to you. Review your medication list with your nurse before leaving and if you need new prescriptions please let your nurse know. I may have made changes to your home medications or given you new prescriptions, please let your primary doctor know as well. Stay compliant with your medications and report any side effects to your PCP or pharmacist. Return to the ER if you have any concerns and cannot reach your doctors or call your insurance company, they usually have a nurse that can help you. 2. Follow-up with Dr. Rdz in 2-3 weeks in his office. [address] [place] [id number] Office Office Fax If No answer for above #, then call [phone] during the day only 3.F/u with primary equity sales assistant in 1-2 weeks HERBER LOBO NP Sep 27, 2016 12:31
--- NOTE | 2016-09-27 12:47 | DS ---
Date/Time of Note Date/Time of Note DATE: 09/27/16 TIME: 12:46 Discharge Summary Admission/Discharge Info Admit Date/Time Sep 25, 2016 at 14:44 Discharge Date/Time Discharge Diagnosis 1. Abdominal pain likely secondary to multiple hepatic lesion/pancreatic tail lesion. Resolved status post SOFY drain removal. 2. Chronic ITP with baseline platelets 20 -30 K refractory to multiple lines of medical treatment including steroid use, Imuran, Nplate (romiplostim) as well as rituximab with very little effect. 3. Anemia of chronic illness. 4. Type II diabetes mellitus. 5. Adnexal cyst. 6. Hearing loss in the left side. 7. Obesity 8. Multiple hepatic lesion/pancreatic tail lesion Patient Condition: Stable Consults Dr. Higgins, surgery Procedures 09/26/2016. Left lower quadrant ultrasound. Unremarkable ultrasound of the lower quadrant soft tissues. No free fluid or abscess identified. Hospital Course This is a 31-year-old obese female with a history of chronic ITP with a baseline platelet count of 20,000-30,000, refractory to multiple medical management including steroids, Imuran, Romiplostim, rituximab, recent splenectomy, hepatectomy, thrombocytopenia, who presented to the emergency room with a history of abdominal pain with possible leakage around her SOFY drain which was placed 5 days ago. She also had associated nausea without vomiting. Patient also had history of Adnexal cyst, type 2 diabetes, and anemia. Patient denied any history of fever, chills, upper or lower GI bleeding, diarrhea, constipation, chest pain, palpitation, headache, dizziness or other constitutional symptoms. Patient was seen at [facility] around 2 days ago prior to ER visit for the same complaints and received pain medications. However, she continued to have abdominal pain and decided to come to [facility] ER. In the ER, patient received IV fluids, Dilaudid 1 mg IV, Zofran 4 mg IV. Patient had a CT done 2 days ago at [facility] with normal reported findings. A clinical decision was made to admit the patient asked she continue to have abdominal pain in the ER and needed further workup. Patient was admitted to medical surgical floor. She was continued on IV fluids , aggressive pain management. For diabetes, patient was placed on sliding scale insulin and Accu-Chek. CBC was monitored daily. Patient was seen by surgery. Ultrasound abdomen showed no free fluid, abscess. There was not much amount of drainage. Hence, drain was removed by surgery without any difficulties. Patient was continued on pain medication. Patient also had no significant transaminase elevation. Patient was kept in house after drain removal and was continued on pain medication. She was also started on a diet which she was able to tolerate. In regards to platelet, based on the chronicity and refractory to multiple medical management in the past, recommendation was to continue monitoring the platelets and no further transfusion. Patient did not have any obvious signs of bleeding. Her abdominal pain resolved. At this time, as per surgery recommendation, there is no further inpatient workup indicated and patient can be discharged home with outpatient surgical follow-up. Disposition: Patient will be discharged home with outpatient follow-up with surgery, primary care physician and primary electrical machinist/oncologist. Patient was given prescription for pain medications. Patient verbalized discharge instructions. Home Meds Active Scripts Hydrocodone Bit-Acetaminophen (Hydrocodone Bit-APAP) 5-325MG Tablet, 2 TAB PO Q4H Y for PAIN LEVEL 7-10 for 14 Days, #45 TAB 0 Refills Prov:TALA HIGGINS M.D. 09/20/16 Reported Medications Ferrous Sulfate* (Ferrous Sulfate*) 325 Mg Tabec, 325 MG PO BID, TAB 09/25/16 Metformin Hcl* (Metformin Hcl*) 1,000 Mg Tablet, 1000 MG PO WITH BREAKFAST DINNE , #60 TAB 09/25/16 Discontinued Reported Medications Norgestimate-Ethinyl Estradiol (Norgestimate-Ethinyl Estradiol) 0.035-0.18 Mg Tablet, 1 TAB PO DAILY, TAB 09/17/16 Ferrous Sulfate* (Ferrous Sulfate*) 325 Mg Tabec, 325 MG PO BID, TAB 08/26/16 Metformin* (Glucophage*) 1,000 Mg Tablet, 1000 MG PO BID, #60 TAB 08/26/16 Omeprazole* (Omeprazole*) 20 Mg Capsule.dr, 20 MG PO DAILY, #30 CAP 08/26/16 Prednisolone* (Prednisolone*) 5 Mg Tablet, 15 MG PO every other day, TAB 08/26/16 Discontinued Scripts Docusate Sodium (Dok) 100 Mg Capsule, 100 MG PO BID for 14 Days, #25 CAP 2 Refills Prov:TALA HIGGINS M.D. 09/20/16 Bisacodyl* (Bisacodyl*) 10 Mg Supp, 10 MG OK BID Y for CONSTIPATION for 14 Days , #10 SUPP 3 Refills Prov:TALA HIGGINS M.D. 09/20/16 Follow-up Plan Follow-up Plan 1.Follow up with primary care physician in 1 week If you don't have one please let someone know, we can give you resources that may help you pick one. You may also call your insurance company to assign one to you. Review your medication list with your nurse before leaving and if you need new prescriptions please let your nurse know. I may have made changes to your home medications or given you new prescriptions, please let your primary doctor know as well. Stay compliant with your medications and report any side effects to your PCP or pharmacist. Return to the ER if you have any concerns and cannot reach your doctors or call your insurance company, they usually have a nurse that can help you. 2. Follow-up with Dr. Higgins in 2-3 weeks in his office. [id number] [place] [address] Office Office Fax If No answer for above #, then call [phone] during the day only 3.F/u with primary electrical machinist in 1-2 weeks Primary Care Provider Madeleine Cochran Pending Labs Laboratory Tests Test 09/26/16 13:45 09/26/16 15:07 09/26/16 17:27 09/26/16 22:02 White Blood Count 8.510^3/ul (4.8-10.8) Red Blood Count 2.2110^6/ul (4.20-5.40) Hemoglobin 7.8g/dl (12.0-16.0) Hematocrit 23.6% (37.0-47.0) Mean Corpuscular Volume 106.8fl (82.0-101.0) Mean Corpuscular Hemoglobin 35.3pg (29.0-33.0) Mean Corpuscular Hemoglobin Concent 33.1g/dl (32.0-37.0) Red Cell Distribution Width 16.2% (11.5-14.5) Platelet Count 2810^3/UL (140-415) Mean Platelet Volume 12.3fl (7.4-10.4) Neutrophils % 76.0% (39.0-77.0) Lymphocytes % 20.0% (15.0-51.0) Monocytes % 4.0% (0.0-11.0) Neutrophils # 6.510^3/ul (1.6-7.5) Lymphocytes # 1.710^3/ul (0.8-2.9) Monocytes # 0.310^3/ul (0.3-0.9) Platelet Estimate PLT APPEAR DECREASED Macrocytosis 2+ Sodium Level 132mmol/L (135-144) Potassium Level 3.9mmol/L (3.5-5.1) Chloride Level 101mmol/L (97-110) Carbon Dioxide Level 28mmol/L (21-31) Anion Gap 7 (8-16) Blood Urea Nitrogen 3mg/dl (7-20) Creatinine 0.49mg/dl (0.44-1.00) Glucose Level 142mg/dl (70-220) Calcium Level 8.5mg/dl (8.4-10.2) Phosphorus Level 2.8mg/dl (2.5-4.9) Magnesium Level 1.8mg/dl (1.7-2.5) Bedside Glucose 153mg/dL (70-220) 171mg/dL (70-220) 180mg/dL (70-220) Test 09/27/16 04:25 09/27/16 07:54 09/27/16 11:56 White Blood Count 6.310^3/ul (4.8-10.8) Red Blood Count 2.1710^6/ul (4.20-5.40) Hemoglobin 7.6g/dl (12.0-16.0) Hematocrit 23.1% (37.0-47.0) Mean Corpuscular Volume 106.5fl (82.0-101.0) Mean Corpuscular Hemoglobin 35.0pg (29.0-33.0) Mean Corpuscular Hemoglobin Concent 32.9g/dl (32.0-37.0) Red Cell Distribution Width 16.3% (11.5-14.5) Platelet Count 2210^3/UL (140-415) Mean Platelet Volume 10.8fl (7.4-10.4) Neutrophils % 60.5% (39.0-77.0) Lymphocytes % 28.6% (15.0-51.0) Monocytes % 9.0% (0.0-11.0) Eosinophils % 1.4% (0.0-7.0) Basophils % 0.2% (0.0-2.0) Nucleated Red Blood Cells % 0.3/100WBC (0.0-0.0) Neutrophils # 3.810^3/ul (1.6-7.5) Lymphocytes # 1.810^3/ul (0.8-2.9) Monocytes # 0.610^3/ul (0.3-0.9) Eosinophils # 0.110^3/ul (0.0-0.5) Basophils # 0.010^3/ul (0.0-0.1) Nucleated Red Blood Cells # 0.010^3/ul (0.0-0.0) Sodium Level 132mmol/L (135-144) Potassium Level 3.5mmol/L (3.5-5.1) Chloride Level 101mmol/L (97-110) Carbon Dioxide Level 27mmol/L (21-31) Anion Gap 8 (8-16) Blood Urea Nitrogen 5mg/dl (7-20) Creatinine 0.52mg/dl (0.44-1.00) Glucose Level 176mg/dl (70-220) Calcium Level 8.1mg/dl (8.4-10.2) Phosphorus Level 3.4mg/dl (2.5-4.9) Magnesium Level 2.0mg/dl (1.7-2.5) Total Bilirubin 0.2mg/dl (0.2-1.3) Direct Bilirubin 0.00mg/dl (0.00-0.20) Indirect Bilirubin 0.2mg/dl (0-1.1) Aspartate Amino Transf (AST/SGOT) 33IU/L (15-46) Alanine Aminotransferase (ALT/SGPT) 45IU/L (13-69) Alkaline Phosphatase 90IU/L (42-121) Total Protein 6.4g/dl (6.1-8.1) Albumin 3.5g/dl (3.3-4.9) Globulin 2.90g/dl (1.3-3.2) Albumin/Globulin Ratio 1.20 Bedside Glucose 169mg/dL (70-220) 174mg/dL (70-220) HERBER LOBO V. PHYSICIST ASTROPHYSICS Sep 27, 2016 12:47
[2016-09-27] MEDS ORDERED: DOCU-216 PO (13:00)
[2016-09-27] MEDS ORDERED: HYDR-3498 PO (13:00)
[2016-09-27] MEDS ORDERED: HYDR-906 PO (13:27)
[2016-09-27] MEDS ORDERED: DOCU-144 PO (13:27)
== END 2016-09-27 13:55 | disposition home or self-care (01) | DRG 392 ==
LOC: E/R 12:55 → PP2 14:44
PROVIDERS: ADMIT Hospitalist; ATTEND Hospitalist
DX: R10.9 Unspecified abdominal pain (principal); D69.3 Immune thrombocytopenic purpura; E11.9 Type 2 diabetes mellitus without complications; E66.9 Obesity, unspecified; D50.9 Iron deficiency anemia, unspecified; D63.8 Anemia in other chronic diseases classified elsewhere; K76.9 Liver disease, unspecified; K86.9 Disease of pancreas, unspecified; Z98.890 Other specified postprocedural states; Z90.81 Acquired absence of spleen; Z90.49 Acquired absence of other specified parts of digestive tract; Z68.36 Body mass index [BMI] 36.0-36.9, adult; Z79.84 Long term (current) use of oral hypoglycemic drugs
CPT/HCPCS: 36415; 76705; 80048; 80053; 80061; 81001; 82150; 82962; 83036; 83605; 83690; 83735; 84100; 84439; 84443; 85025; 85610; 85730; 86850; 86900; 86901; 87040; 87086; 96374; 96375; 96376; J1170; J1815; J2060; J2270; J2405; J7030

== ENCOUNTER 2016-09-30 20:29 | Inpatient (IN) | payer OTHER ==
[~2016-09-30] VITALS: Ht 165.1 cm; Wt 100.5 kg
[~2016-09-30 20:29] MED LIST changes: -BISA10SU75 PR; +DOCU-144 PO; -DOCU-216 PO; -HYDR-3498 PO; +HYDR-906 PO; +METF1000 PO; -MTF1000T PO; -NORG1TAB65 PO; -OMEP20CA16 PO; -PRED5TAB50 PO
[2016-09-30] MEDS ORDERED: SODIUM CHLORIDE 0.9% 1L BAG IV* STA (21:03)
[2016-09-30] MEDS ORDERED: PIPER-TAZO 3.375 GM IV (PMX) 100 ML IVPB STA (21:03)
[2016-09-30] MEDS ORDERED: morphine 4 MG/ML VIAL IV STA (21:06)
[2016-09-30] MEDS ORDERED: ONDANSETRON 4 MG INJ IV STA (21:06)
[2016-09-30] MEDS ORDERED: HYDROmorphONE 1 MG/ML SYG IV STA (21:24)
[2016-09-30] MEDS ORDERED: VANCOMYCIN 1 GM (PMX) 250 ML IVPB ONE (21:30)
[2016-09-30 21:52] LABS: ADD SCAN DIFF NO
[2016-09-30 22:06] LABS: ADD UMIC YES; UR ASCORBIC ACID NEGATIVE (NEGATIVE); UR BILIRUBIN (Dip) NEGATIVE (NEGATIVE); UR BLOOD (Dip) 1+ mg/dL (NEGATIVE); UR CLARITY SLIGHTLY CLOUDY (CLEAR); UR COLOR YELLOW (YELLOW); UR GLUCOSE (Dip) NEGATIVE (NEGATIVE); UR KETONES (Dip) NEGATIVE (NEGATIVE); UR LEUKOCYTE ESTERASE (Dip) NEGATIVE Leu/ul (NEGATIVE); UR NITRITE (Dip) NEGATIVE (NEGATIVE); UR RBC 6 /HPF (0-5); UR SPECIFIC GRAVITY (Dip) 1.016 (1.003-1.030); UR TOTAL PROTEIN (Dip) NEGATIVE (NEGATIVE); UR UROBILINOGEN (Dip) 1+ mg/dL (NEGATIVE)
[2016-09-30] MEDS ORDERED: IOHEXOL 300MG/ML 150 ML BTL ONE (22:06)
[2016-09-30] MEDS ORDERED: SOD CHLORIDE 0.9% 100 ML ONE (22:06)
[2016-09-30 22:13] LABS: ABNORMAL IP MESSAGE 1; HEMOGLOBIN 8.7 g/dl (12.0-16.0); MEAN CORPUSCULAR HEMOGLOBIN 35.2 pg (29.0-33.0); MEAN CORPUSCULAR HGB CONC 33.5 g/dl (32.0-37.0); MEAN CORPUSCULAR VOLUME 105.3 fl (82.0-101.0); MEAN PLATELET VOLUME 12.1 fl (7.4-10.4); RED BLOOD COUNT 2.47 10^6/ul (4.20-5.40); RED CELL DISTRIBUTION WIDTH 15.9 % (11.5-14.5); WHITE BLOOD COUNT 4.9 10^3/ul (4.8-10.8)
[2016-09-30 22:15] LABS: INR 1.16; PROTIME 14.9 Sec (12.2-14.2); PT RATIO 1.2
--- NOTE | 2016-09-30 22:15 | RADRPT ---
PROCEDURE: XR Chest. CLINICAL INDICATION: Chest pain TECHNIQUE: Single portable view of the chest was obtained COMPARISON: 09/19/2016 FINDINGS: The heart and mediastinum are within normal limits. There are low lung volumes. There are mild bibasilar atelectatic changes. The lungs are otherwise clear. There is no pleural effusion or pneumothorax. RPTAT: AA IMPRESSION: Mild bibasilar atelectatic changes, left greater than right. .Mani Hale MD, MD Date Time Electronically viewed and signed by .Mani Hale MD, on 09/30/2016 22:15 .S/
[2016-09-30 22:16] LABS: PARTIAL THROMBOPLASTIN TIME 37.1 Sec (25.0-35.0)
[2016-09-30 22:18] LABS: ALANINE AMINOTRANSFERASE 38 IU/L (13-69); ALBUMIN 4.6 g/dl (3.3-4.9); ALBUMIN/GLOBULIN RATIO 1.21; ALKALINE PHOSPHATASE 177 IU/L (42-121); ANION GAP 12 (8-16); ASPARTATE AMINO TRANSFERASE 30 IU/L (15-46); BLOOD UREA NITROGEN 5 mg/dl (7-20); CALCIUM 9.6 mg/dl (8.4-10.2); CARBON DIOXIDE 27 mmol/L (21-31); CHLORIDE 94 mmol/L (97-110); GLUCOSE 212 mg/dl (70-220); POTASSIUM 3.4 mmol/L (3.5-5.1); SODIUM 130 mmol/L (135-144); TOTAL PROTEIN 8.4 g/dl (6.1-8.1)
[2016-09-30 22:30] LABS: TROPONIN-I < 0.012 ng/ml (0.00-0.12)
--- NOTE | 2016-09-30 23:04 | ERA ---
ER Documentation Chief Complaint Date/Time DATE: 09/30/16 TIME: 23:00 Chief Complaint c/o worsening abd pain s/p tumor, spleen and partial liver removal 2 wks ag HPI 31-year-old female presents with abdominal pain is been worsening for the last few days as well as nausea vomiting and fevers. Pain is a sharp pain located in her upper abdomen. She denies cough and burning in urination. I reviewed the patient's EMR and read through her surgical notes from Dr. 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 She has a history of chronic ITP. ROS All systems reviewed and are negative except as per history of present illness. Medications Home Meds Active Scripts Docusate Sodium* (Colace*) 100 Mg Capsule, 100 MG PO BID for CONSTIPATION, #60 CAP Prov:HERBER LOBO V. PATIENT FINANCIAL SERVICES COORDINATOR 09/27/16 Hydrocodone/Acetaminophen ([place] 5-325 Tablet) 1 Each Tablet, 1 EACH PO Q6H for PAIN for 30 Days, TAB Prov:HERBER LOBO V. PATIENT FINANCIAL SERVICES COORDINATOR 09/27/16 Reported Medications Ferrous Sulfate* (Ferrous Sulfate*) 325 Mg Tabec, 325 MG PO BID, TAB 09/25/16 Metformin Hcl* (Metformin Hcl*) 1,000 Mg Tablet, 1000 MG PO WITH BREAKFAST DINNE , #60 TAB 09/25/16 Discontinued Reported Medications Norgestimate-Ethinyl Estradiol (Norgestimate-Ethinyl Estradiol) 0.035-0.18 Mg Tablet, 1 TAB PO DAILY, TAB 09/17/16 Ferrous Sulfate* (Ferrous Sulfate*) 325 Mg Tabec, 325 MG PO BID, TAB 08/26/16 Metformin* (Glucophage*) 1,000 Mg Tablet, 1000 MG PO BID, #60 TAB 08/26/16 Omeprazole* (Omeprazole*) 20 Mg Capsule.dr, 20 MG PO DAILY, #30 CAP 08/26/16 Prednisolone* (Prednisolone*) 5 Mg Tablet, 15 MG PO every other day, TAB 08/26/16 Discontinued Scripts Hydrocodone Bit-Acetaminophen (Hydrocodone Bit-APAP) 5-325MG Tablet, 2 TAB PO Q4H Y for PAIN LEVEL 7-10 for 14 Days, #45 TAB 0 Refills Prov:TALA HIGGINS M.D. 09/20/16 Docusate Sodium (Dok) 100 Mg Capsule, 100 MG PO BID for 14 Days, #25 CAP 2 Refills Prov:TALA HIGGINS M.D. 09/20/16 Bisacodyl* (Bisacodyl*) 10 Mg Supp, 10 MG TN BID Y for CONSTIPATION for 14 Days , #10 SUPP 3 Refills Prov:TALA HIGGINS M.D. 09/20/16 Allergies Allergies: Coded Allergies: No Known Drug Allergies (Verified Allergy, Unknown, 09/30/16) PMhx/Soc History of Surgery: Yes (spleenectomy c section hepatectomy) Anesthesia Reaction: No Hx Neurological Disorder: No Hx Respiratory Disorders: No Hx Cardiac Disorders: No Hx Psychiatric Problems: No Hx Miscellaneous Medical Probl: Yes (ITP chronic anemia, DM) Hx Alcohol Use: No Hx Substance Use: No Hx Tobacco Use: No Smoking Status: Never smoker Physical Exam Vitals Vital Signs Date Time Temp Pulse Resp B/P Pulse Ox O2 Delivery O2 Flow Rate FiO2 09/30/16 23:16 102.0 105 22 132/71 98 Room Air 09/30/16 20:38 102.8 131 24 136/90 98 Physical Exam Const: [] Moderate distress Head: Atraumatic Eyes: Normal Conjunctiva ENT: Normal External Ears, Nose and Mouth. Neck: Full range of motion..~ No meningismus. Resp: Clear to auscultation bilaterally Cardio: Regular tachycardia, no murmurs Abd: Soft, mild upper abdominal tenderness in the epigastric area, severe tenderness surrounding a incision site in the left upper quadrant., non distended. Normal bowel sounds Skin: No petechiae or rashes, very warm to the touch Back: No midline or flank tenderness Ext: No cyanosis, or edema Neur: Awake and alert and oriented 3, no focal deficits Psych: Normal Mood and Affect Result Diagram: 09/30/16212909/30/162129 Results 24 hrs Laboratory Tests Test 09/30/16 20:51 09/30/16 21:00 09/30/16 21:30 09/30/16 23:11 Urine Color YELLOW Urine Clarity SLIGHTLY CLOUDY Urine pH 7.0 Urine Specific [place] 1.016 Urine Ketones NEGATIVEmg/dL Urine Nitrite NEGATIVEmg/dL Urine Bilirubin NEGATIVEmg/dL Urine Urobilinogen 1+mg/dL Urine Leukocyte Esterase NEGATIVELeu/ul Urine Microscopic RBC 6/HPF Urine Microscopic WBC 2/HPF Urine Hemoglobin 1+mg/dL Urine Glucose NEGATIVEmg/dL Urine Total Protein NEGATIVEmg/dl Lactic Acid Level 2.3mmol/L 1.4mmol/L White Blood Count 4.910^3/ul Red Blood Count 2.4710^6/ul Hemoglobin 8.7g/dl Hematocrit 26.0% Mean Corpuscular Volume 105.3fl Mean Corpuscular Hemoglobin 35.2pg Mean Corpuscular Hemoglobin Concent 33.5g/dl Red Cell Distribution Width 15.9% Platelet Count 2810^3/UL Mean Platelet Volume 12.1fl Neutrophils % 60.0% Lymphocytes % 33.0% Monocytes % 5.0% Eosinophils % 2.0% Nucleated Red Blood Cells % 2.0/100WBC Neutrophils # 2.910^3/ul Lymphocytes # 1.610^3/ul Monocytes # 0.210^3/ul Eosinophils # 0.110^3/ul Differential Comment MANUAL DIFF Platelet Estimate PLT APPEAR DECREASED Anisocytosis 1+ Microcytosis 1+ Tear Drop Cells FEW Ovalocytes Prothrombin Time 14.9Sec Prothrombin Time Ratio 1.2 INR International Normalized Ratio 1.16 Activated Partial Thromboplast Time 37.1Sec Sodium Level 130mmol/L Potassium Level 3.4mmol/L Chloride Level 94mmol/L Carbon Dioxide Level 27mmol/L Anion Gap 12 Blood Urea Nitrogen 5mg/dl Creatinine 0.50mg/dl Glucose Level 212mg/dl Calcium Level 9.6mg/dl Total Bilirubin 0.0mg/dl Direct Bilirubin 0.00mg/dl Indirect Bilirubin 0.0mg/dl Aspartate Amino Transf (AST/SGOT) 30IU/L Alanine Aminotransferase (ALT/SGPT) 38IU/L Alkaline Phosphatase 177IU/L Troponin I < 0.012ng/ml Total Protein 8.4g/dl Albumin 4.6g/dl Globulin 3.80g/dl Albumin/Globulin Ratio 1.21 Serum HCG, Qualitative NEGATIVE Current Medications Medications (Trade) Dose Ordered Sig/Juan Carlos Route PRN Reason Start Time Stop Time Status Last Admin Dose Admin Sodium Chloride 2880 ml 2,880 ml BOLUS OVER 2 HOURS STAT IV* 09/30/16 21:03 09/30/16 21:06 DC 09/30/16 21:23 Vancomycin HCl 250 ml @ 125 mls/hr ONCE ONCE IVPB 09/30/16 21:30 09/30/16 23:29 DC 09/30/16 22:58 Piperacillin Sod/ Tazobactam Sod (Zosyn 3.375gm/ 100 ml (Pmx)) 100 ml @ 200 mls/hr ONCE STAT IVPB 09/30/16 21:03 09/30/16 21:32 DC 09/30/16 21:24 Morphine Sulfate (morphine) 4 mg ONCE STAT IV 09/30/16 21:06 09/30/16 21:26 DC 09/30/16 21:24 Ondansetron HCl (Zofran Inj) 4 mg ONCE STAT IV 09/30/16 21:06 09/30/16 21:08 DC 09/30/16 21:23 Hydromorphone HCl (Dilaudid) 1 mg ONCE STAT IV 09/30/16 21:24 09/30/16 21:26 DC 09/30/16 22:10 IV Flush 10 ml 10 ml STK-MED ONCE .ROUTE 09/30/16 22:06 09/30/16 22:07 DC 09/30/16 22:49 Sodium Chloride (NS) 100 ml @ ud STK-MED ONCE .ROUTE 09/30/16 22:06 09/30/16 22:07 DC 09/30/16 22:51 Iohexol (Omnipaque 300mg/ ml) 150 ml STK-MED ONCE .ROUTE 09/30/16 22:06 09/30/16 22:07 DC 09/30/16 22:51 Ondansetron HCl (Zofran Inj) 4 mg BRIDGE ORDER PRN IV NAUSEA AND/OR VOMITING 10/01/16 00:30 10/02/16 00:29 Acetaminophen (Tylenol Tab) 650 mg ER BRIDGE PRN PO MILD PAIN/FEVER 10/01/16 00:30 10/02/16 00:29 Procedures/MDM Patient with definite sepsis without clear source. As the patient is postoperative 2 weeks this is concerning for possible intra-abdominal infection of the is not certain from the CT read. She has no symptoms of pneumonia or UTI and no evidence of such. She was given 30 cc/kg of IV fluid as well as vancomycin and Zosyn empirically. She was also given Dilaudid and Zofran which helped her pain and nausea. Notify Dr. Wilson that this patient was being admitted. He will see the patient on consult. Also spoke with Dr. Abdul, who saw the patient at the bedside and will be admitting the patient to the floor for further monitoring and treatment. EKG interpretation: Sinus tachycardia rate of 112, normal axis, no ST or T-wave changes concerning for acute ischemia. Normal intervals. rehabilitation services manager interpretation: Sinus tachycardia without other arrhythmias Chest x-ray interpretation: I see no acute process. I see no widened mediastinum, pneumothorax, no infiltrates, no fractures. Critical care time 37 minutes: This includes treatment of sepsis in a postop patient, very careful fluid administration, empiric antibiotic therapy, multiple patient's bedside to reassess her status, chart reviewed, discussion with admitting doctor, surgeon, patient. This does not include any billable procedures Departure Diagnosis: Primary Impression: Sepsis Additional Impressions: Acute abdominal pain Lactic acidosis Severe thrombocytopenia Hyponatremia Condition: Serious JORGE LUIS BARKER DO Sep 30, 2016 23:04
[2016-09-30 23:16] VITALS: TEMP 102
--- NOTE | 2016-09-30 23:19 | RADRPT ---
PROCEDURE: CT abdomen and pelvis with intravenous contrast. CLINICAL INDICATION: Pain. TECHNIQUE: CT of the abdomen/pelvis was performed utilizing axial images with reconstructions in s agittal and coronal planes after uneventful administration of 100 cc Omnipaque 300. The administered radiation dose is CTDI 21 mGy, DLP 1240 mGy-cm. COMPARISON: No pertinent prior examinations were submitted for comparison. FINDINGS: Visualized Chest: There is subsegmental atelectasis is noted within the left greater than right lung bases. There is trace left pleural effusion. Abdomen: The pancreas, gallbladder,and adrenal glands are unremarkable. Prior splenectomy is noted. Prior r esection of the left hepatic lobe is noted. There are some fatty infiltrative changes in the left u pper quadrant. A sliver of fluid in the is seen along the splenic fossa without definite peripheral enhancement. This measures no greater than 2.1 by 0.9 cm in greatest axial dimensions and 1.6 cm c ranial caudally. Some subcutaneous fat infiltrative changes are noted in the left anterior abdominal wall with some l inear fluid extending from the left peritoneum through the skin surface. This is best seen from the axial images 81 through 100 of series 3. This measures no greater than 6 mm in diameter and 10 cm in length. There may be some minimal wall enhancement although there are only some minimal surroundi ng fatty infiltrative changes. The kidneys are without hydronephrosis. No definite urinary calculi are seen. There is no evidence of bowel obstruction. The appendix is normal. No intra-abdominal free air is seen. There is no evidence of intra-abdominal adenopathy or free fluid. Pelvis: There is no evidence of pelvic adenopathy. The uterus and ovaries are without enlargement. The uri nary bladder is unremarkable. There is no pelvic free fluid. Osseous structures: Unremarkable. IMPRESSION: Status post recent left hepatectomy and splenectomy with a small sliver of fluid along the splenic f juan josé. This is likely within the limits of expected postoperative change or resolving, minimal hemat pernell given its size. Small sliver of fluid in the left anterior abdomen extending through the skin surface, likely due to a recent catheter or laparoscopy tract. Fistula formation can be excluded clinically. RPTAT: HIKT .Chip Austin MD, Date Time Electronically viewed and signed by .Chip Austin MD, on 09/30/2016 23:19 .T/
[2016-09-30 23:45] LABS: EOSINOPHILS # 0.1 10^3/ul (0.0-0.5); LYMPHOCYTES # 1.6 10^3/ul (0.8-2.9); MONOCYTE # 0.2 10^3/ul (0.3-0.9); NEUTROPHIL # 2.9 10^3/ul (1.6-7.5)
[2016-09-30 23:46] LABS: ANISOCYTOSIS 1+; MICROCYTOSIS 1+
[2016-09-30 23:47] LABS: PLATELET ESTIMATE PLT APPEAR DECREASED; TEAR DROP CELLS FEW
[2016-09-30 23:49] LABS: PLATELET COUNT 28 10^3/UL (140-415)
[2016-10-01] MEDS ORDERED: ONDANSETRON 4 MG INJ IV PRN ×2 (00:30→02:30)
[2016-10-01] MEDS ORDERED: ACETAMINOPHEN 325 MG TAB PO PRN ×3 (00:30→13:30)
--- NOTE | 2016-10-01 00:33 | HP ---
Date/Time of Note Date/Time of Note DATE: 10/01/16 TIME: 00:32 Assessment/Plan VTE Prophylaxis VTE Prophylaxis Intervention: SCD's Assessment/Plan Chief Complaint/Hosp Course This is a 31 female being admitted to the [facility] floor for: #1 sepsis: Patient presented with a fever and tachycardia with possible abdominal source of infection. CAT scan showed: Status post recent left hepatectomy and splenectomy with a small sliver of fluid along the splenic fossa. This is likely within the limits of expected postoperative change or resolving, minimal hematoma given its size. Small sliver of fluid in the left anterior abdomen extending through the skin surface, likely due to a recent catheter or laparoscopy tract. Fistula formation can be excluded clinically. At the current time we will treat the patient with Zosyn IV. Consult general surgery for further evaluation. Tylenol for fevers. IV fluid hydration. IV pain control medications. We will keep the patient n.p.o. except meds right now. #2 chronic ITP: Patient's platelet count appears to be within its normal range for the patient. We will continue to monitor this. #3 diabetes mellitus: We will check a hemoglobin A1c, insulin sliding scale. #4 Macrocytic anemia: Hemoglobin is 8.7. With an MCV of 105. Will check a folate and B12 level. Continue to monitor this. #5 DVT GI prophylaxis: SCDs, Protonix Further treatment strategy will be implemented as per the clinical course. Problems: HPI/ROS Admit Date/Time Admit Date/Time Hx of Present Illness cc: abdominal pain This is a 31-year-old female presents with abdominal pain is been worsening for the last few days as well as nausea vomiting and fevers. Pain is a sharp pain located in her left upper abdomen. She denies cough and burning in urination. 31-year-old female presents with abdominal pain is been worsening for the last few days as well as nausea vomiting and fevers. Pain is a sharp pain located in her upper abdomen. She denies cough and burning in urination. Patient recently had surgery performed by Dr. 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 She has a history of chronic ITP. Patient also states that the open wound/fistula that she has on her left abdomen she has noticed a change in smell as well as a change in the discharge. Medications: See MAR Allergies: NKDA ROS Const: As per Eyes : No pain discharge or redness or change in visual acuity ENT: No pain, sore throat, congestion, congestion, dysphagia or discharge Respiratory: No shortness of breath, cough, sputum, wheezing, or pleuritic pain Cardiovascular: No chest pain, palpitation, PND, or edema GI : As per HPI Genitourinary: No dysuria, hematuria, flank pain , discharge or CVA tenderness Musculoskeletal: No joint pain, back pain, neck pain, restricted range of motion in neck or joints Skin: As per HPI Neuro: No headache, dizziness, syncope, seizure, focal weakness Endocrine: No polyuria, polydipsia, temperature intolerance Psych: No hallucination, depression, anxiety or suicidal ideation PMH/Family/Social Past Medical History chronic ITP, diabetes mellitus, anemia Past Surgical History 1, splenectomy, tumor removal from the abdomen Past Surgical Hx: other Family History Significant Family History: no pertinent family hx Social History Alcohol Use: none Smoking Status: Never smoker Drug Use: none Exam/Review of Systems Vital Signs Vitals Vital Signs Date Time Temp Pulse Resp B/P Pulse Ox O2 Delivery O2 Flow Rate FiO2 09/30/16 23:16 102.0 105 22 132/71 98 Room Air Exam Exam General: Patient is a obese female lying in bed in mild distress. HEENT: Atraumatic, normocephalic. The pupils are equal, round and reactive. Extraocular motor are intact Neck: Supple with full range of motion. No rigidity or meningismus Chest: Nontender Lungs: Clear to auscultation bilaterally no crackles rales or wheezing Heart: Normal S1-S2, Regular rhythm and rate. Abdomen: Soft, tenderness to palpation around the left fistula/open wound site. Yellowish discharge noted at the site. Surgical scars present. Extremities: Normal to inspection, no edema no cyanosis Neurologic: Normal mental status, speech normal, cranial nerves II through XII are intact, motor and sensory are intact, no focal weakness Additional Comments PROCEDURE: XR Chest. CLINICAL INDICATION: Chest pain TECHNIQUE: Single portable view of the chest was obtained COMPARISON: 09/19/2016 FINDINGS: The heart and mediastinum are within normal limits. There are low lung volumes. There are mild bibasilar atelectatic changes. The lungs are otherwise clear. There is no pleural effusion or pneumothorax. RPTAT: AA IMPRESSION: Mild bibasilar atelectatic changes, left greater than right. .Mani Hale MD, Date Time Electronically viewed and signed by .Mani Hale MD, MD on 09/30/2016 22: 15 PROCEDURE: CT abdomen and pelvis with intravenous contrast. CLINICAL INDICATION: Pain. TECHNIQUE: CT of the abdomen/pelvis was performed utilizing axial images with reconstructions in sagittal and coronal planes after uneventful administration of 100 cc Omnipaque 300. The administered radiation dose is CTDI 21 mGy, DLP 1240 mGy-cm. COMPARISON: No pertinent prior examinations were submitted for comparison. FINDINGS: Visualized Chest: There is subsegmental atelectasis is noted within the left greater than right lung bases. There is trace left pleural effusion. Abdomen: The pancreas, gallbladder,and adrenal glands are unremarkable. Prior splenectomy is noted. Prior resection of the left hepatic lobe is noted. There are some fatty infiltrative changes in the left upper quadrant. A sliver of fluid in the is seen along the splenic fossa without definite peripheral enhancement. This measures no greater than 2.1 by 0.9 cm in greatest axial dimensions and 1.6 cm cranial caudally. Some subcutaneous fat infiltrative changes are noted in the left anterior abdominal wall with some linear fluid extending from the left peritoneum through the skin surface. This is best seen from the axial images 81 through 100 of series 3. This measures no greater than 6 mm in diameter and 10 cm in length. There may be some minimal wall enhancement although there are only some minimal surrounding fatty infiltrative changes. The kidneys are without hydronephrosis. No definite urinary calculi are seen. There is no evidence of bowel obstruction. The appendix is normal. No intra- abdominal free air is seen. There is no evidence of intra-abdominal adenopathy or free fluid. Pelvis: There is no evidence of pelvic adenopathy. The uterus and ovaries are without enlargement. The urinary bladder is unremarkable. There is no pelvic free fluid. Osseous structures: Unremarkable. IMPRESSION: Status post recent left hepatectomy and splenectomy with a small sliver of fluid along the splenic fossa. This is likely within the limits of expected postoperative change or resolving, minimal hematoma given its size. Small sliver of fluid in the left anterior abdomen extending through the skin surface, likely due to a recent catheter or laparoscopy tract. Fistula formation can be excluded clinically. RPTAT: HIKT .Chip Austin MD, Date Time Electronically viewed and signed by .Chip Austin MD, on 09/30/2016 23:19 Labs Result Diagram: 09/30/16212909/30/162129 BAILEE FULTON Oct 01, 2016 00:33
[2016-10-01 01:45] VITALS: BP 125/73; PULSE 104; RESP 17
[2016-10-01] MEDS ORDERED: NACL 0.9% 3 ML SYG IV SCH (02:30)
[2016-10-01] MEDS ORDERED: POTASSIUM CHLORIDE (SR) 20 MEQ TAB PO ONE (02:31)
[2016-10-01] MEDS: SOD CHLORIDE 0.9% 1,000 ML IV SCH ×2 (03:07→14:55)
[2016-10-01] MEDS: HYDROmorphONE 1 MG/ML SYG IV PRN ×6 (03:07→23:23)
[2016-10-01 04:06] VITALS: Ht 165.1 cm; Wt 100.5 kg
[2016-10-01 05:17] LABS: ADD SCAN DIFF NO
[2016-10-01 05:23] LABS: ABNORMAL IP MESSAGE 1; BASOPHILS % 0.3 % (0.0-2.0); EOSINOPHILS # 0.1 10^3/ul (0.0-0.5); HEMATOCRIT 20.3 % (37.0-47.0); LYMPHOCYTES # 1.6 10^3/ul (0.8-2.9); LYMPHOCYTES % 40.1 % (15.0-51.0); MEAN CORPUSCULAR HEMOGLOBIN 34.6 pg (29.0-33.0); MEAN CORPUSCULAR HGB CONC 32.5 g/dl (32.0-37.0); MEAN CORPUSCULAR VOLUME 106.3 fl (82.0-101.0); MEAN PLATELET VOLUME 11.4 fl (7.4-10.4); MONOCYTE # 0.3 10^3/ul (0.3-0.9); MONOCYTES % 7.8 % (0.0-11.0); NEUTROPHILS % 49.5 % (39.0-77.0); NUCLEATED RED BLOOD CELLS% 0.5 /100WBC (0.0-0.0); RED BLOOD COUNT 1.91 10^6/ul (4.20-5.40); RED CELL DISTRIBUTION WIDTH 16.2 % (11.5-14.5)
[2016-10-01 06:11] LABS: ALBUMIN 3.2 g/dl (3.3-4.9); ALBUMIN/GLOBULIN RATIO 1.14; CALCIUM 8.2 mg/dl (8.4-10.2); CREATININE 0.48 mg/dl (0.44-1.00); POTASSIUM 3.8 mmol/L (3.5-5.1)
[2016-10-01 06:14] LABS: PLATELET COUNT 24 10^3/UL (140-415)
[2016-10-01 06:16] LABS: HEMOGLOBIN 6.6 g/dl (12.0-16.0)
[2016-10-01] MEDS: PANTOPRAZOLE 40 MG INJ IV SCH (06:17)
[2016-10-01] MEDS: PIPER-TAZO 3.375 GM IV (PMX) 100 ML IVPB SCH ×4 (06:17→23:27)
[2016-10-01 08:16] VITALS: BP 105/57; RESP 18
[2016-10-01 08:19] LABS: FOLATE 7.8 ng/ml (2.8-20.0)
--- NOTE | 2016-10-01 12:48 | RADRPT ---
PROCEDURE: CT Brain without contrast. CLINICAL INDICATION: Headaches. TECHNIQUE: A CT of the brain was performed on multidetector high-resolution CT scanner utilizing a xial sections from the skull base through the vertex without contrast. One or more of the following dose reduction techniques were used: Automated exposure control, Adjustment of the mA and/or kV acc ording to patient size, and/or use of iterative reconstruction technique. DOSE: CTDI = 45 mGy and the DLP = 720 mGy-cm. COMPARISON: None available FINDINGS: No acute intracranial hemorrhage, significant mass effect or midline shift. The soto-white different iation is grossly preserved. The ventricles are normal in size for age. No significant opacification of the visualized paranasal sinuses or mastoids. IMPRESSION: No acute intracranial findings. RPTAT: AA .Stan Bonds MD, MD Date Time Electronically viewed and signed by .Stan Bonds MD, on 10/01/2016 12:48 .T/
[2016-10-01] MEDS ORDERED: HYDROCODONE/APAP (5/325) TAB PO PRN (13:30)
[2016-10-01 13:35] VITALS: BP 110/60; PULSE 89; RESP 20
--- NOTE | 2016-10-01 14:23 | PN ---
Date/Time of Note Date/Time of Note DATE: 10/01/16 TIME: 14:17 Assessment/Plan VTE Prophylaxis VTE Prophylaxis Intervention: SCD's Lines/Catheters IV Catheter Type (from Nrs): Peripheral IV Assessment/Plan Chief Complaint/Hosp Course Assessment and plan #1 sepsis: CAT scan showed: Status post recent left hepatectomy and splenectomy with a small sliver of fluid along the splenic fossa. Continue Zosyn . general surgery consulted for further evaluation. Tylenol for fevers. IV fluid hydration. IV pain control medications. We will keep the patient n.p.o. except meds right now. #2 chronic ITP: Patient's platelet count appears to be within its normal range for the patient. We will continue to monitor this. #3 diabetes mellitus: Continue, insulin sliding scale. #4 Macrocytic anemia: Will transfuse 2 units of packed red blood cells, follow up hemoglobin hematocrit that is post transfusion. Will check a folate and B12 level. Continue to monitor this. #5 DVT GI prophylaxis: SCDs, Protonix Further treatment strategy will be implemented as per the clinical course. Problems: Subjective 24 Hr Interval Summary Free Text/Dictation Patient complains of having left sided abdominal pain Positive fever N.p.o. at this time as per surgery recommendations Exam/Review of Systems Vital Signs Vitals Vital Signs Date Time Temp Pulse Resp B/P Pulse Ox O2 Delivery O2 Flow Rate FiO2 10/01/16 08:16 98.2 83 18 105/57 95 10/01/16 01:45 Room Air Intake and Output 09/30/16 09/30/16 10/01/16 15:00 23:00 07:00 Intake Total 710 ml Balance 710 ml Exam General: The patient is well-developed, Not in acute distress. HEENT: Atraumatic, normocephalic. The pupils are equal and round . Neck: Supple with full range of motion. Chest: Normal expansion of the thorax during inspiration Lungs: Clear to auscultation bilaterally Heart: Normal S1-S2, Regular rhythm and rate. Abdomen: Soft , tenderness in left upper quadrant, nondistended , bowel sounds are present. Extremities: Normal to inspection, no edema no cyanosis Neurologic: Normal mental status,The patient is awake, alert and oriented . Results Result Diagram: 10/01/16 0419 10/01/16 0419 Results 24 hrs Laboratory Tests Test 09/30/16 20:51 09/30/16 21:00 09/30/16 21:30 09/30/16 23:11 Urine Color YELLOW Urine Clarity SLIGHTLY CLOUDY A Urine pH 7.0 Urine Specific [place] 1.016 Urine Ketones NEGATIVE Urine Nitrite NEGATIVE Urine Bilirubin NEGATIVE Urine Urobilinogen 1+ H Urine Leukocyte Esterase NEGATIVE Urine Microscopic RBC 6 H Urine Microscopic WBC 2 Urine Hemoglobin 1+ H Urine Glucose NEGATIVE Urine Total Protein NEGATIVE Lactic Acid Level 2.3 H 1.4 White Blood Count 4.9 # Red Blood Count 2.47 L Hemoglobin 8.7 L Hematocrit 26.0 L Mean Corpuscular Volume 105.3 H Mean Corpuscular Hemoglobin 35.2 H Mean Corpuscular Hemoglobin Concent 33.5 Red Cell Distribution Width 15.9 H Platelet Count 28 #*L Mean Platelet Volume 12.1 H Neutrophils % 60.0 Lymphocytes % 33.0 Monocytes % 5.0 Eosinophils % 2.0 Nucleated Red Blood Cells % 2.0 H Neutrophils # 2.9 Lymphocytes # 1.6 Monocytes # 0.2 L Eosinophils # 0.1 Differential Comment MANUAL DIFF Platelet Estimate PLT APPEAR DECREASED Anisocytosis 1+ Microcytosis 1+ Tear Drop Cells FEW Ovalocytes Prothrombin Time 14.9 H Prothrombin Time Ratio 1.2 INR International Normalized Ratio 1.16 Activated Partial Thromboplast Time 37.1 H Sodium Level 130 L Potassium Level 3.4 L Chloride Level 94 L Carbon Dioxide Level 27 Anion Gap 12 Blood Urea Nitrogen 5 L Creatinine 0.50 Glucose Level 212 Calcium Level 9.6 Total Bilirubin 0.0 L Direct Bilirubin 0.00 Indirect Bilirubin 0.0 Aspartate Amino Transf (AST/SGOT) 30 Alanine Aminotransferase (ALT/SGPT) 38 Alkaline Phosphatase 177 H Troponin I < 0.012 Total Protein 8.4 H Albumin 4.6 Globulin 3.80 H Albumin/Globulin Ratio 1.21 Serum HCG, Qualitative NEGATIVE Test 10/01/16 04:19 White Blood Count 4.0 L Red Blood Count 1.91 #L Hemoglobin 6.6 #*L Hematocrit 20.3 #L Mean Corpuscular Volume 106.3 H Mean Corpuscular Hemoglobin 34.6 H Mean Corpuscular Hemoglobin Concent 32.5 Red Cell Distribution Width 16.2 H Platelet Count 24 *L Mean Platelet Volume 11.4 H Neutrophils % 49.5 Lymphocytes % 40.1 Monocytes % 7.8 Eosinophils % 2.0 Basophils % 0.3 Nucleated Red Blood Cells % 0.5 H Neutrophils # 2.0 Lymphocytes # 1.6 Monocytes # 0.3 Eosinophils # 0.1 Basophils # 0.0 Nucleated Red Blood Cells # 0.0 Sodium Level 128 L Potassium Level 3.8 Chloride Level 101 Carbon Dioxide Level 28 Anion Gap 3 #L Blood Urea Nitrogen 5 L Creatinine 0.48 Glucose Level 162 Lactic Acid Level 0.8 Calcium Level 8.2 L Total Bilirubin 0.0 L Direct Bilirubin 0.00 Indirect Bilirubin 0.0 Aspartate Amino Transf (AST/SGOT) 21 Alanine Aminotransferase (ALT/SGPT) 28 Alkaline Phosphatase 130 H Total Protein 6.0 #L Albumin 3.2 #L Globulin 2.80 Albumin/Globulin Ratio 1.14 Vitamin B12 Level 804 Folate 7.8 Medications Medications Current Medications Sodium Chloride (NS) 1,000 ml @ 80 mls/hr [id number] IV Last administered on 10/01 03:07; Admin Dose 80 MLS/HR; Start 10/01/16 at 02:25 Ondansetron HCl (Zofran Inj) 4 mg Q6H PRN IV NAUSEA AND/OR VOMITING; Start at 02:30 Acetaminophen (Tylenol Tab) 650 mg Q6H PRN PO PAIN LEVEL 1-3 OR FEVER Last administered on 10/01/16 03:41; Admin Dose 650 MG; Start 10/01/16 at 02:30 Hydromorphone HCl (Dilaudid) 0.5 mg Q4H PRN IV SEVERE PAIN LEVEL 7-10 Last administered on 10/01/16 11:17; Admin Dose 0.5 MG; Start 10/01/16 at 02:30 Pantoprazole 40 mg 40 mg DAILY@06 IV Last administered on 10/01/16 06:17; Admin Dose 40 MG; Start 10/01/16 at 06:00 Piperacillin Sod/ Tazobactam Sod (Zosyn 3.375gm/ 100 ml (Pmx)) 100 ml @ 200 mls /hr Q6 IVPB Last administered on 10/01/16 11:17; Admin Dose 200 MLS/HR; Start 10/01/16 at 06:00 Acetaminophen (Tylenol Tab) 650 mg Q6H PRN PO PAIN AND OR ELEVATED TEMP Last administered on 10/01/16 13:22; Admin Dose 650 MG; Start 10/01/16 at 13:30 Acetaminophen/ Hydrocodone Bitart ([place] (5/325)) 1 tab Q4H PRN PO PAIN; Start 10/01/16 at 13:30 TIN LYNCH MD Oct 01, 2016 14:22
--- NOTE | 2016-10-01 15:00 | PN ---
Date/Time of Note Date/Time of Note DATE: 10/01/16 TIME: 14:52 Assessment/Plan Lines/Catheters IV C[facility]ter Type (from [facility]): Peripheral IV Assessment/Plan Assessment/Plan [facility] Progress Note Date of Service: 10/01/16 Today's Impression & Plan: Overall has remained stable with a few issues, most pressing of which are the fevers. No obvious source. CT of abd/pelvis showed expected post operative findings without obvious actionable fluid collection, pancreas leak, hematoma, wound infection/abscess, bile leak, major clotting of vessels, or obvious lower pulmonary issues or cardiac issues. Post splenectomy state puts patient at risk for encapsulated organism. I've asked Dr. Reddy to kindly help us in management from infectious disease standpoint. I also ordered a head CT to evaluate the headaches more. Also a repeat H&H to confirm the low Hg. No indication for acute surgical intervention. Discussed with patient and her mother and answered all of their questions. With above assessment, I've recommended the following for today: 1. Keep inhouse 2. ID consult with Dr. Reddy 3. Head CT non-contrast 4. stat H&H check to confirm previous level 5. Cont broad spec antimicrobials with targeted de-escalation 6. Follow up on cultures 7. Symptom control 8. Ok from my standpoint for patient to eat 9. Labs in am Thank you again for your great care of this very pleasant patient and wonderful family. If there are any questions, please feel free to call me at [phone]. Disclaimer: Inadvertent spelling or grammatical errors are likely due to EHR/ dictation software use and do not reflect on the overall quality of patient care. Updated Clinical Summary: A very pleasant 31-year-old lady with comorbidities including BMI of 36.5 as well as chronic idiopathic thrombocytopenia (ITP) since late 2014 that has been refractory to medical treatment, presenting with several hepatic masses. S/p laparoscopic, hand-assisted splenectomy and left lateral hepatectomy and intraoperative ultrasound of the liver at [facility] 09/17/16. Reported feeling well for the first two days after discharge from [facility], but then started experiencing abdominal pain. Readmitted to [facility] through ED on 09/25/16 for abdominal pain with admission and discharge to outside hospital prior to coming to [facility]. D/c home 7/9 /17. COMORBIDITIES: 1. Chronic ITP diagnosed late 2014 and refractory to multiple lines of medical treatment including steroid use, Imuran, Nplate (romiplostim) as well as rituximab with very little effect. Platelet counts in the 20s to 30s. Surgical intervention was recommended by Dr. Luna. S/p laparoscopic, hand- assisted splenectomy and left lateral hepatectomy and intraoperative ultrasound of the liver at [facility] 09/17/16 2. BMI 36.5. 3. Anemia. 4. Diabetes mellitus. 5. Adnexal cyst. 6. Hearing loss in the left side. 7. Status post . 8. Multiple liver lesions that appear to be homogeneously arterially phases, enhancing hepatic lesions with differential including hepatic adenomas, hemangiomas, focal nodular hyperplasia, or hypervascular metastatic disease as seen on abdominal and pelvic CT 04/21/2016. Abdominal ultrasound on 04/21/2016 showed enlarged fatty liver and above-mentioned masses measuring up to 6 cm. A contrast MRI 04/24/2016 again showed multiple arterially enhancing liver lesions , one of which was 4.2 x 5.9 cm (distal edge of segment 2), a second one was 1.8 cm (again in segment 2 but more immediately), additional 4 to 5 smaller lesions within the right lobe were noted all showing washout on 30 second delay , and mostly isointense the liver on delayed images. Central areas of hypointensity seen within the 2 left lobe lesions fill in, and there is a suggestion of mild hyperintense appearance on the 60 second delayed films, best seen on image 26. 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 9. A 5 mm cystic pancreatic tail lesion again seen on the MRI. Hospital Course Patient underwent an otherwise uncomplicated laparoscopic, hand-assisted splenectomy and left lateral hepatectomy and intraoperative ultrasound of the liver at [facility] 09/17/16. For a detailed report, please see my op note from same date. Post op, patient did very well without any evidence for major post- operative complication or wound problems. Only notable feature was lack of significant increase in patient's platelet count postoperatively. By the time of discharge, patient was tolerating a regular diet, had adequate pain control on oral pain medications, had shown return of bowel activity and was clinically stable. Patient is therefore being discharged today pending results of the upper extremity ultrasound that will be followed up by internal medicine. Subjective: No major events since admission other than fevers and chills along with headaches (new). ? some back discomfort. No major abdominal pain complaints, especially near the incisions.Drain site skin open with minimal to no drainage and no pain complaints there. No n/v/d; no sob or cp; + flatus; + BM and normal ; + activity Objective: Vitals: See below Exam: GENERAL: On exam, the patient was laying in bed and appeared to be comfortable and in no acute distress. ABDOMEN: Soft, essentially nontender and nondistended. Incisions are clean, dry and intact without any evidence of erythema, edema, discharge, or hernia. Surgery drain site dressing clean and drain site itself with open skin, no erythema, edema or major discharge. There are no peritoneal signs or guarding. SKIN: Skin appears to be pink and feels warm to touch. NEUROLOGIC: Patient is awake, alert, and follows commands appropriately. Exam/Review of Systems Vital Signs Vitals Vital Signs Date Time Temp Pulse Resp B/P Pulse Ox O2 Delivery O2 Flow Rate FiO2 10/01/16 08:16 98.2 83 18 105/57 95 10/01/16 01:45 Room Air Intake and Output 09/30/16 09/30/16 10/01/16 15:00 23:00 07:00 Intake Total 710 ml Balance 710 ml Results Result Diagram: 10/01/16 0419 10/01/16 0419 TALA HIGGINS M.D. Oct 01, 2016 15:00
--- NOTE | 2016-10-01 16:10 | CONS ---
Date/Time of Note Date/Time of Note DATE: 10/01/16 TIME: 16:09 Consultation Date/Type/Reason Admit Date/Time Type of Consultation: ID Past Surgical History Past Surgical Hx: other Social History Alcohol Use: none Smoking Status: Never smoker Drug Use: none Exam/Review of Systems Vital Signs Vitals Vital Signs Date Time Temp Pulse Resp B/P Pulse Ox O2 Delivery O2 Flow Rate FiO2 10/01/16 13:00 101.6 10/01/16 08:16 83 18 105/57 95 10/01/16 01:45 Room Air Intake and Output 09/30/16 09/30/16 10/01/16 15:00 23:00 07:00 Intake Total 710 ml Balance 710 ml Results Result Diagram: 10/01/16 0419 10/01/16 0419 Results 24 hrs Laboratory Tests Test 09/30/16 20:51 09/30/16 21:00 09/30/16 21:30 09/30/16 23:11 Urine Color YELLOW Urine Clarity SLIGHTLY CLOUDY A Urine pH 7.0 Urine Specific [place] 1.016 Urine Ketones NEGATIVE Urine Nitrite NEGATIVE Urine Bilirubin NEGATIVE Urine Urobilinogen 1+ H Urine Leukocyte Esterase NEGATIVE Urine Microscopic RBC 6 H Urine Microscopic WBC 2 Urine Hemoglobin 1+ H Urine Glucose NEGATIVE Urine Total Protein NEGATIVE Lactic Acid Level 2.3 H 1.4 White Blood Count 4.9 # Red Blood Count 2.47 L Hemoglobin 8.7 L Hematocrit 26.0 L Mean Corpuscular Volume 105.3 H Mean Corpuscular Hemoglobin 35.2 H Mean Corpuscular Hemoglobin Concent 33.5 Red Cell Distribution Width 15.9 H Platelet Count 28 #*L Mean Platelet Volume 12.1 H Neutrophils % 60.0 Lymphocytes % 33.0 Monocytes % 5.0 Eosinophils % 2.0 Nucleated Red Blood Cells % 2.0 H Neutrophils # 2.9 Lymphocytes # 1.6 Monocytes # 0.2 L Eosinophils # 0.1 Differential Comment MANUAL DIFF Platelet Estimate PLT APPEAR DECREASED Anisocytosis 1+ Microcytosis 1+ Tear Drop Cells FEW Ovalocytes Prothrombin Time 14.9 H Prothrombin Time Ratio 1.2 INR International Normalized Ratio 1.16 Activated Partial Thromboplast Time 37.1 H Sodium Level 130 L Potassium Level 3.4 L Chloride Level 94 L Carbon Dioxide Level 27 Anion Gap 12 Blood Urea Nitrogen 5 L Creatinine 0.50 Glucose Level 212 Calcium Level 9.6 Total Bilirubin 0.0 L Direct Bilirubin 0.00 Indirect Bilirubin 0.0 Aspartate Amino Transf (AST/SGOT) 30 Alanine Aminotransferase (ALT/SGPT) 38 Alkaline Phosphatase 177 H Troponin I < 0.012 Total Protein 8.4 H Albumin 4.6 Globulin 3.80 H Albumin/Globulin Ratio 1.21 Serum HCG, Qualitative NEGATIVE Test 10/01/16 04:19 White Blood Count 4.0 L Red Blood Count 1.91 #L Hemoglobin 6.6 #*L Hematocrit 20.3 #L Mean Corpuscular Volume 106.3 H Mean Corpuscular Hemoglobin 34.6 H Mean Corpuscular Hemoglobin Concent 32.5 Red Cell Distribution Width 16.2 H Platelet Count 24 *L Mean Platelet Volume 11.4 H Neutrophils % 49.5 Lymphocytes % 40.1 Monocytes % 7.8 Eosinophils % 2.0 Basophils % 0.3 Nucleated Red Blood Cells % 0.5 H Neutrophils # 2.0 Lymphocytes # 1.6 Monocytes # 0.3 Eosinophils # 0.1 Basophils # 0.0 Nucleated Red Blood Cells # 0.0 Sodium Level 128 L Potassium Level 3.8 Chloride Level 101 Carbon Dioxide Level 28 Anion Gap 3 #L Blood Urea Nitrogen 5 L Creatinine 0.48 Glucose Level 162 Lactic Acid Level 0.8 Calcium Level 8.2 L Total Bilirubin 0.0 L Direct Bilirubin 0.00 Indirect Bilirubin 0.0 Aspartate Amino Transf (AST/SGOT) 21 Alanine Aminotransferase (ALT/SGPT) 28 Alkaline Phosphatase 130 H Total Protein 6.0 #L Albumin 3.2 #L Globulin 2.80 Albumin/Globulin Ratio 1.14 Vitamin B12 Level 804 Folate 7.8 Medications Medications Current Medications Sodium Chloride (NS) 1,000 ml @ 80 mls/hr [id number] IV Last administered on 10/01 03:07; Admin Dose 80 MLS/HR; Start 10/01/16 at 02:25 Ondansetron HCl (Zofran Inj) 4 mg Q6H PRN IV NAUSEA AND/OR VOMITING; Start at 02:30 Acetaminophen (Tylenol Tab) 650 mg Q6H PRN PO PAIN LEVEL 1-3 OR FEVER Last administered on 10/01/16 03:41; Admin Dose 650 MG; Start 10/01/16 at 02:30 Hydromorphone HCl (Dilaudid) 0.5 mg Q4H PRN IV SEVERE PAIN LEVEL 7-10 Last administered on 10/01/16 15:35; Admin Dose 0.5 MG; Start 10/01/16 at 02:30 Pantoprazole 40 mg 40 mg DAILY@06 IV Last administered on 10/01/16 06:17; Admin Dose 40 MG; Start 10/01/16 at 06:00 Piperacillin Sod/ Tazobactam Sod (Zosyn 3.375gm/ 100 ml (Pmx)) 100 ml @ 200 mls /hr Q6 IVPB Last administered on 10/01/16 11:17; Admin Dose 200 MLS/HR; Start 10/01/16 at 06:00 Acetaminophen/ Hydrocodone Bitart ([place] (5/325)) 1 tab Q4H PRN PO PAIN; Start 10/01/16 at 13:30 OSMAR STALEY MD Oct 01, 2016 16:10
[2016-10-01 17:09] LABS: HEMATOCRIT 25.7 % (37.0-47.0); HEMOGLOBIN 8.5 g/dl (12.0-16.0)
[2016-10-01 19:05] VITALS: BP 121/69; RESP 18
[2016-10-01 23:34] VITALS: BP 123/77; PULSE 98; RESP 20
[2016-10-02] MEDS: HYDROmorphONE 1 MG/ML SYG IV PRN ×5 (03:23→22:22)
[2016-10-02] MEDS: SOD CHLORIDE 0.9% 1,000 ML IV SCH ×3 (03:24→22:26)
[2016-10-02 05:46] LABS: ADD SCAN DIFF NO
[2016-10-02 05:48] LABS: ABNORMAL IP MESSAGE 1; EOSINOPHILS # 0.1 10^3/ul (0.0-0.5); EOSINOPHILS % 2.7 % (0.0-7.0); HEMOGLOBIN 7.8 g/dl (12.0-16.0); LYMPHOCYTES # 1.3 10^3/ul (0.8-2.9); LYMPHOCYTES % 39.5 % (15.0-51.0); MEAN CORPUSCULAR HEMOGLOBIN 33.1 pg (29.0-33.0); MEAN CORPUSCULAR HGB CONC 32.5 g/dl (32.0-37.0); MEAN CORPUSCULAR VOLUME 101.7 fl (82.0-101.0); MONOCYTE # 0.3 10^3/ul (0.3-0.9); MONOCYTES % 9.1 % (0.0-11.0); NEUTROPHIL # 1.6 10^3/ul (1.6-7.5); NEUTROPHILS % 48.4 % (39.0-77.0); NUCLEATED RED BLOOD CELLS% 1.2 /100WBC (0.0-0.0); RED BLOOD COUNT 2.36 10^6/ul (4.20-5.40); RED CELL DISTRIBUTION WIDTH 16.8 % (11.5-14.5); WHITE BLOOD COUNT 3.3 10^3/ul (4.8-10.8)
[2016-10-02] MEDS: PIPER-TAZO 3.375 GM IV (PMX) 100 ML IVPB SCH ×3 (06:01→17:39)
[2016-10-02] MEDS: PANTOPRAZOLE 40 MG INJ IV SCH (06:01)
[2016-10-02 06:12] LABS: ALBUMIN 3.5 g/dl (3.3-4.9); ALBUMIN/GLOBULIN RATIO 1.12; BILIRUBIN,INDIRECT 0.1 mg/dl (0-1.1); BILIRUBIN,TOTAL 0.1 mg/dl (0.2-1.3); CALCIUM 8.7 mg/dl (8.4-10.2); CREATININE 0.45 mg/dl (0.44-1.00); POTASSIUM 3.9 mmol/L (3.5-5.1); TOTAL PROTEIN 6.6 g/dl (6.1-8.1)
[2016-10-02 06:21] LABS: PLATELET COUNT 19 10^3/UL (140-415)
[2016-10-02 07:00] VITALS: BP 113/68; RESP 18
[2016-10-02 12:00] VITALS: BP 126/73; RESP 20
--- NOTE | 2016-10-02 14:17 | CONS ---
Date/Time of Note Date/Time of Note DATE: 10/02/16 TIME: 14:16 Assessment/Plan Assessment/Plan Chief Complaint/Hosp Course No acute changes. Patient is alert feels good denies pain T-max 100.6 T-current 99.2 pulse 88 respirations 20 blood pressure 126/72 saturation 95 room air WBC 3.3 H&H 7.8 and 24 platelets 19 no shift no bands BN 6 creatinine 0.45 Microbiology blood cultures remain negative CT of the brain revealed no acute intracranial findings. Chest x-ray revealed mild by basilar atelectatic changes left greater than right. CT of the abdomen and pelvis on admission revealed status post recent left hepatectomy and splenectomy with a small 6 Leiber of fluid along the splenic fossa Antimicrobials Zosyn Physical examination: Obese well-developed middle-aged woman who is alert in no distress. Head atraumatic normocephalic sclera nonicteric neck is supple trachea midline no palpable cervical nodes. Chest rise symmetrical, breath sounds clear bilaterally. Heart: S1-S2. Abdomen soft bowel tones present patient has left lower quadrant dressing with a small wound. Extremities without cyanosis edema Assessment: 1. Ongoing fevers possibly pulmonary source 2. Pancytopenia with progressive thrombocytopenia 3. History of recent left hepatectomy and splenectomy 4. Left lower quadrant abdominal wound at previous SOFY site 5. Morbid obesity 6. ITP Plan: Patient is clinically stable blood cultures have been negative, no nausea vomiting diarrhea, we will repeat chest x-ray in a.m., continue Zosyn for now, check pro-calcitonin level, follow surgical recommendations. Consider hematology evaluation Discussed with staff Discussed with patient Problems: Consultation Date/Type/Reason Admit Date/Time Oct 01, 2016 at 00:21 Initial Consult Date Type of Consultation: ID Exam/Review of Systems Vital Signs Vitals Vital Signs Date Time Temp Pulse Resp B/P Pulse Ox O2 Delivery O2 Flow Rate FiO2 10/02/16 12:00 99.2 88 20 126/73 95 10/01/16 23:34 Room Air Intake and Output 10/01/16 10/01/16 10/02/16 15:00 23:00 07:00 Intake Total 100 ml 100 ml 810 ml Output Total 900 ml Balance 100 ml -800 ml 810 ml Results Result Diagram: 10/02/16 0444 10/02/16 0444 Results 24 hrs Laboratory Tests Test 10/01/16 17:00 10/02/16 04:44 10/02/16 07:19 Hemoglobin 8.5 #L 7.8 L Hematocrit 25.7 #L 24.0 L White Blood Count 3.3 L Red Blood Count 2.36 #L Mean Corpuscular Volume 101.7 H Mean Corpuscular Hemoglobin 33.1 H Mean Corpuscular Hemoglobin Concent 32.5 Red Cell Distribution Width 16.8 H Platelet Count 19 #*L Mean Platelet Volume Neutrophils % 48.4 Lymphocytes % 39.5 Monocytes % 9.1 Eosinophils % 2.7 Basophils % 0.0 Nucleated Red Blood Cells % 1.2 H Neutrophils # 1.6 Lymphocytes # 1.3 Monocytes # 0.3 Eosinophils # 0.1 Basophils # 0.0 Nucleated Red Blood Cells # 0.0 Sodium Level 127 L Potassium Level 3.9 Chloride Level 99 Carbon Dioxide Level 28 Anion Gap 4 L Blood Urea Nitrogen 6 L Creatinine 0.45 Glucose Level 177 Calcium Level 8.7 Total Bilirubin 0.1 L Direct Bilirubin 0.00 Indirect Bilirubin 0.1 Aspartate Amino Transf (AST/SGOT) 24 Alanine Aminotransferase (ALT/SGPT) 31 Alkaline Phosphatase 108 Total Protein 6.6 Albumin 3.5 Globulin 3.10 Albumin/Globulin Ratio 1.12 Lab Scanned Report BLOOD TRANSFUSION Medications Medications Current Medications Sodium Chloride (NS) 1,000 ml @ 80 mls/hr [id number] IV Last administered on 10/02 08:40; Admin Dose 80 MLS/HR; Start 10/01/16 at 02:25 Ondansetron HCl (Zofran Inj) 4 mg Q6H PRN IV NAUSEA AND/OR VOMITING; Start at 02:30 Acetaminophen (Tylenol Tab) 650 mg Q6H PRN PO PAIN LEVEL 1-3 OR FEVER Last administered on 10/01/16 03:41; Admin Dose 650 MG; Start 10/01/16 at 02:30 Hydromorphone HCl (Dilaudid) 0.5 mg Q4H PRN IV SEVERE PAIN LEVEL 7-10 Last administered on 10/02/16 13:24; Admin Dose 0.5 MG; Start 10/01/16 at 02:30 Pantoprazole 40 mg 40 mg DAILY@06 IV Last administered on 10/02/16 06:01; Admin Dose 40 MG; Start 10/01/16 at 06:00 Piperacillin Sod/ Tazobactam Sod (Zosyn 3.375gm/ 100 ml (Pmx)) 100 ml @ 200 mls /hr Q6 IVPB Last administered on 10/02/16 11:18; Admin Dose 200 MLS/HR; Start 10/01/16 at 06:00 Acetaminophen/ Hydrocodone Bitart ([place] (5/325)) 1 tab Q4H PRN PO PAIN Last administered on 10/01/16 22:49; Admin Dose 1 TAB; Start 10/01/16 at 13:30 LEONARDO SANON [employer] Oct 02, 2016 14:17
--- NOTE | 2016-10-02 15:11 | CONS ---
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 Rdz, baseline platelet count 20-30K, status post laparoscopic, hand-assisted splenectomy and left lateral hepatectomy and intraoperative ultrasound of the liver on 09/17/16. She received 1 unit of platelets during surgery due to intraoperative bleeding. # ITP Per Dr. Luna, the patient has been followed by him since March 2015, last romiplostim was 07/24/16 and she receives 500 mcg monthly. -Per Dr. Luna, will give 500 mcg romiplostim while here as patient has not received this month. Per BRANDEN it was scheduled for September 21 during the last admission, but she was discharged prior to it being given. Will give N plate 500 mcg today. - Will continue to monitor platelet count. Splenectomy unfortunately may not work as would have expected platelet count to increase significantly after splenectomy. - No indication for platelet transfusion unless bleeding in the setting of ITP - Patient should f/u with Dr. Luna upon discharge - per Dr. Rdz, will plan to give post-splenectomy vaccines at the end of this admission # Macrocytic anemia, Vitamin B12 and folate within normal limits, will check TSH , homocysteine, methylmalonic acid, as well as LDH, retic count, haptoglobin, iron panel, ferritin with a.m. labs. s/p 2 units pRBCs yesterday for HGb 6.6, now 7.8 # Leukopenia, may be related to sepsis as previously normal, continue to monitor. 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 Rdz. Platelet counts in the 20s to 30s. Surgical intervention was recommended by Dr. Luna who is her primary salesperson driver. The patient was admitted for an elective laparoscopic splenectomy with intraoperative ultrasound of the liver as well as a left lateral hepatectomy. The surgery itself was uneventful, but postoperatively the patient said to have had a mild anxiety episode where she was complaining of some epigastric pain and became very agitated and anxious and was admitted for medical management. Per Dr. Luna, the patient has been followed by him since March 2015, last romiplostim was 07/24/16 and she receives 500 mcg monthly. Her platelet count on 07/24/16 was in the 30s, but has been in the 20s in the past. She was also recently started on imuran per Dr. Luna. She underwent laparoscopic, hand- assisted splenectomy and left lateral hepatectomy and intraoperative ultrasound of the liver on 09/17/16. She received 1 unit of platelets during surgery due to intraoperative bleeding. She denies bleeding at this time. No complaints except post-surgical pain. Per Dr. Rdz, multiple liver lesions that appear to be homogeneously arterially phases, enhancing hepatic lesions with differential including hepatic adenomas, hemangiomas, focal nodular hyperplasia, or hypervascular metastatic disease as seen on abdominal and pelvic CT 04/21/2016. Abdominal ultrasound on 04/21/2016 showed enlarged fatty liver and above-mentioned masses measuring up to 6 cm. A contrast MRI 04/24/2016 again showed multiple arterially enhancing liver lesions, one of which was 4.2 x 5.9 cm (distal edge of segment 2), a second one was 1.8 cm (again in segment 2 but more immediately) , additional 4 to 5 smaller lesions within the right lobe were noted all showing washout on 30 second delay, and mostly isointense the liver on delayed images. Central areas of hypointensity seen within the 2 left lobe lesions fill in, and there is a suggestion of mild hyperintense appearance on the 60 second delayed films, best seen on image 26. 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 The patient reported feeling well for the first two days after discharge from [facility], but then started experiencing abdominal pain. Readmitted to [facility] through ED on 09/25/16 for abdominal pain with admission and discharge to outside hospital prior to coming to [facility]. D/c'd home 09/27/16. Now patient readmitted with fevers with no obvious source. CT of abd/pelvis showed expected post operative findings without obvious actionable fluid collection, pancreas leak, hematoma, wound infection/abscess, bile leak, major clotting of vessels, or obvious lower pulmonary issues or cardiac issues. Patient currently afebrile, doing well except for some abdominal pain. Past Medical History 1. 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 Diabetes mellitus 3. Hard of hearing on the left side 4. Chronic liver lesions thought to be benign 5. Chronic 5 mm pancreatic tail cyst Past Surgical History 1. 2. Splenectomy and left-sided hepatectomy Family History Significant Family History: no pertinent family hx Social History Alcohol Use: none Smoking Status: Never smoker Psychological: nl mood/affect, no complaints Social History Alcohol Use: none Smoking Status: Never smoker Past Surgical History Past Surgical Hx: other Social History Alcohol Use: none Smoking Status: Never smoker Drug Use: none Exam/Review of Systems Vital Signs Vitals Vital Signs Date Time Temp Pulse Resp B/P Pulse Ox O2 Delivery O2 Flow Rate FiO2 10/02/16 12:00 99.2 88 20 126/73 95 10/01/16 23:34 Room Air Intake and Output 10/01/16 10/01/16 10/02/16 15:00 23:00 07:00 Intake Total 100 ml 100 ml 810 ml Output Total 900 ml Balance 100 ml -800 ml 810 ml Exam Constitutional: alert, oriented Head: normocephalic Eyes: nl conjunctiva Neck: supple Respiratory: clear to auscultation Cardiovascular: regular rate and rhythm Gastrointestinal: soft, tender Musculoskeletal: nl extremities to inspection Neurological: SYSTEM SOFTWARE DEVELOPER II-XII intact Results Result Diagram: 10/02/16 0444 10/02/16 0444 Results 24 hrs Laboratory Tests Test 10/01/16 17:00 10/02/16 04:44 10/02/16 07:19 Hemoglobin 8.5 #L 7.8 L Hematocrit 25.7 #L 24.0 L White Blood Count 3.3 L Red Blood Count 2.36 #L Mean Corpuscular Volume 101.7 H Mean Corpuscular Hemoglobin 33.1 H Mean Corpuscular Hemoglobin Concent 32.5 Red Cell Distribution Width 16.8 H Platelet Count 19 #*L Mean Platelet Volume Neutrophils % 48.4 Lymphocytes % 39.5 Monocytes % 9.1 Eosinophils % 2.7 Basophils % 0.0 Nucleated Red Blood Cells % 1.2 H Neutrophils # 1.6 Lymphocytes # 1.3 Monocytes # 0.3 Eosinophils # 0.1 Basophils # 0.0 Nucleated Red Blood Cells # 0.0 Sodium Level 127 L Potassium Level 3.9 Chloride Level 99 Carbon Dioxide Level 28 Anion Gap 4 L Blood Urea Nitrogen 6 L Creatinine 0.45 Glucose Level 177 Calcium Level 8.7 Total Bilirubin 0.1 L Direct Bilirubin 0.00 Indirect Bilirubin 0.1 Aspartate Amino Transf (AST/SGOT) 24 Alanine Aminotransferase (ALT/SGPT) 31 Alkaline Phosphatase 108 Total Protein 6.6 Albumin 3.5 Globulin 3.10 Albumin/Globulin Ratio 1.12 Lab Scanned Report BLOOD TRANSFUSION Medications Medications Current Medications Sodium Chloride (NS) 1,000 ml @ 80 mls/hr [id number] IV Last administered on 10/02 08:40; Admin Dose 80 MLS/HR; Start 10/01/16 at 02:25 Ondansetron HCl (Zofran Inj) 4 mg Q6H PRN IV NAUSEA AND/OR VOMITING; Start at 02:30 Acetaminophen (Tylenol Tab) 650 mg Q6H PRN PO PAIN LEVEL 1-3 OR FEVER Last administered on 10/01/16 03:41; Admin Dose 650 MG; Start 10/01/16 at 02:30 Hydromorphone HCl (Dilaudid) 0.5 mg Q4H PRN IV SEVERE PAIN LEVEL 7-10 Last administered on 10/02/16 13:24; Admin Dose 0.5 MG; Start 10/01/16 at 02:30 Pantoprazole 40 mg 40 mg DAILY@06 IV Last administered on 10/02/16 06:01; Admin Dose 40 MG; Start 10/01/16 at 06:00 Piperacillin Sod/ Tazobactam Sod (Zosyn 3.375gm/ 100 ml (Pmx)) 100 ml @ 200 mls /hr Q6 IVPB Last administered on 10/02/16 11:18; Admin Dose 200 MLS/HR; Start 10/01/16 at 06:00 Acetaminophen/ Hydrocodone Bitart ([place] (5/325)) 1 tab Q4H PRN PO PAIN Last administered on 10/01/16 22:49; Admin Dose 1 TAB; Start 10/01/16 at 13:30 TO,ANGY West MD Oct 02, 2016 15:10
--- NOTE | 2016-10-02 15:33 | PN ---
Date/Time of Note Date/Time of Note DATE: 10/02/16 TIME: 15:29 Assessment/Plan VTE Prophylaxis VTE Prophylaxis Intervention: SCD's Lines/Catheters IV Catheter Type (from Nrsg): Peripheral IV Assessment/Plan Chief Complaint/Hosp Course #1 sepsis: CAT scan showed: Status post recent left hepatectomy and splenectomy with a small sliver of fluid along the splenic fossa. Continue Zosyn . Surgery following, IV fluid hydration. IV pain control medications, started on diet #2 chronic ITP: Patient's platelet count appears to be within its normal range for the patient -Hem consult appreciated #3 diabetes mellitus: Continue, insulin sliding scale. #4 Macrocytic anemia: s/p 2 units of packed red blood cells, follow up hemoglobin hematocrit Folate and B12 level nl #5 DVT GI prophylaxis: SCDs, Protonix Problems: Subjective 24 Hr Interval Summary Gastrointestinal: pain Exam/Review of Systems Vital Signs Vitals Vital Signs Date Time Temp Pulse Resp B/P Pulse Ox O2 Delivery O2 Flow Rate FiO2 10/02/16 12:00 99.2 88 20 126/73 95 10/01/16 23:34 Room Air Intake and Output 10/01/16 10/01/16 10/02/16 15:00 23:00 07:00 Intake Total 100 ml 100 ml 810 ml Output Total 900 ml Balance 100 ml -800 ml 810 ml Exam Constitutional: alert, oriented Respiratory: clear to auscultation Cardiovascular: regular rate and rhythm Gastrointestinal: soft, No distended Musculoskeletal: nl extremities to inspection Results Result Diagram: 10/02/16 0444 10/02/16 0444 Results 24 hrs Laboratory Tests Test 10/01/16 17:00 10/02/16 04:44 10/02/16 07:19 Hemoglobin 8.5 #L 7.8 L Hematocrit 25.7 #L 24.0 L White Blood Count 3.3 L Red Blood Count 2.36 #L Mean Corpuscular Volume 101.7 H Mean Corpuscular Hemoglobin 33.1 H Mean Corpuscular Hemoglobin Concent 32.5 Red Cell Distribution Width 16.8 H Platelet Count 19 #*L Mean Platelet Volume Neutrophils % 48.4 Lymphocytes % 39.5 Monocytes % 9.1 Eosinophils % 2.7 Basophils % 0.0 Nucleated Red Blood Cells % 1.2 H Neutrophils # 1.6 Lymphocytes # 1.3 Monocytes # 0.3 Eosinophils # 0.1 Basophils # 0.0 Nucleated Red Blood Cells # 0.0 Sodium Level 127 L Potassium Level 3.9 Chloride Level 99 Carbon Dioxide Level 28 Anion Gap 4 L Blood Urea Nitrogen 6 L Creatinine 0.45 Glucose Level 177 Calcium Level 8.7 Total Bilirubin 0.1 L Direct Bilirubin 0.00 Indirect Bilirubin 0.1 Aspartate Amino Transf (AST/SGOT) 24 Alanine Aminotransferase (ALT/SGPT) 31 Alkaline Phosphatase 108 Total Protein 6.6 Albumin 3.5 Globulin 3.10 Albumin/Globulin Ratio 1.12 Lab Scanned Report BLOOD TRANSFUSION Medications Medications Current Medications Sodium Chloride (NS) 1,000 ml @ 80 mls/hr [id number] IV Last administered on 10/02 08:40; Admin Dose 80 MLS/HR; Start 10/01/16 at 02:25 Ondansetron HCl (Zofran Inj) 4 mg Q6H PRN IV NAUSEA AND/OR VOMITING; Start at 02:30 Acetaminophen (Tylenol Tab) 650 mg Q6H PRN PO PAIN LEVEL 1-3 OR FEVER Last administered on 10/01/16 03:41; Admin Dose 650 MG; Start 10/01/16 at 02:30 Hydromorphone HCl (Dilaudid) 0.5 mg Q4H PRN IV SEVERE PAIN LEVEL 7-10 Last administered on 10/02/16 13:24; Admin Dose 0.5 MG; Start 10/01/16 at 02:30 Pantoprazole 40 mg 40 mg DAILY@06 IV Last administered on 10/02/16 06:01; Admin Dose 40 MG; Start 10/01/16 at 06:00 Piperacillin Sod/ Tazobactam Sod (Zosyn 3.375gm/ 100 ml (Pmx)) 100 ml @ 200 mls /hr Q6 IVPB Last administered on 10/02/16 11:18; Admin Dose 200 MLS/HR; Start 10/01/16 at 06:00 Acetaminophen/ Hydrocodone Bitart ([place] (5/325)) 1 tab Q4H PRN PO PAIN Last administered on 10/01/16 22:49; Admin Dose 1 TAB; Start 10/01/16 at 13:30 HODAN PATEL Oct 02, 2016 15:33
--- NOTE | 2016-10-02 18:23 | PN ---
Date/Time of Note Date/Time of Note DATE: 10/02/16 TIME: 18:17 Assessment/Plan Lines/Catheters IV Catheter Type (from [facility]): Peripheral IV Assessment/Plan Assessment/Plan [facility] Progress Note Date of Service: 10/02/16 Today's Impression & Plan: Overall has remained stable with overall clinical improvement. No major issues with fevers in the last [address] Reddy's and Dr. Mohr's input. Head CT was negative. Hemoglobin stable and no evidence of active hemorrhage. Overall source of fevers is still unknown. Patient also has nonspecific and vague complaints (e.g. occasional spasms with back pain, twinges in the abdomen , etc.) without obvious identified etiology. She has not had a bowel movement for more than a day and it would be important for us to eliminate constipation as potential contributor to the patient's symptoms. Lactobacillus noted in the urine, but ? significance. No indication for acute surgical intervention. Discussed with patient and her mother and answered all of their questions. With above assessment, I've recommended the following for today: 1. Keep inhouse 2. Follow recommendations from Dr. Reddy and Dr. Mohr (much appreciate the input) 3. Labs in a.m. 4. Vaccination for encapsulated organisms towards the end of this admission 5. Cont broad spec antimicrobials with targeted de-escalation 6. Follow up on cultures 7. Symptom control 8. Continue oral diet 9. Possible DC planning in 24-48 hours Thank you again for your great care of this very pleasant patient and wonderful family. If there are any questions, please feel free to call me at [phone]. Disclaimer: Inadvertent spelling or grammatical errors are likely due to EHR/ dictation software use and do not reflect on the overall quality of patient care. Updated Clinical Summary: A very pleasant 31-year-old lady with comorbidities including BMI of 36.5 as well as chronic idiopathic thrombocytopenia (ITP) since late 2014 that has been refractory to medical treatment, presenting with several hepatic masses. S/p laparoscopic, hand-assisted splenectomy and left lateral hepatectomy and intraoperative ultrasound of the liver at [facility] 09/17/16. Reported feeling well for the first two days after discharge from [facility], but then started experiencing abdominal pain. Readmitted to [facility] through ED on 09/25/16 for abdominal pain with admission and discharge to outside hospital prior to coming to [facility]. D/c home 09/27. COMORBIDITIES: 1. Chronic ITP diagnosed late 2014 and refractory to multiple lines of medical treatment including steroid use, Imuran, Nplate (romiplostim) as well as rituximab with very little effect. Platelet counts in the 20s to 30s. Surgical intervention was recommended by Dr. Luna. S/p laparoscopic, hand- assisted splenectomy and left lateral hepatectomy and intraoperative ultrasound of the liver at [facility] 09/17/16 2. BMI 36.5. 3. Anemia. 4. Diabetes mellitus. 5. Adnexal cyst. 6. Hearing loss in the left side. 7. Status post . 8. Multiple liver lesions that appear to be homogeneously arterially phases, enhancing hepatic lesions with differential including hepatic adenomas, hemangiomas, focal nodular hyperplasia, or hypervascular metastatic disease as seen on abdominal and pelvic CT 04/21/2016. Abdominal ultrasound on 04/21/2016 showed enlarged fatty liver and above-mentioned masses measuring up to 6 cm. A contrast MRI 04/24/2016 again showed multiple arterially enhancing liver lesions , one of which was 4.2 x 5.9 cm (distal edge of segment 2), a second one was 1.8 cm (again in segment 2 but more immediately), additional 4 to 5 smaller lesions within the right lobe were noted all showing washout on 30 second delay , and mostly isointense the liver on delayed images. Central areas of hypointensity seen within the 2 left lobe lesions fill in, and there is a suggestion of mild hyperintense appearance on the 60 second delayed films, best seen on image 26. 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 9. A 5 mm cystic pancreatic tail lesion again seen on the MRI. Hospital Course Patient underwent an otherwise uncomplicated laparoscopic, hand-assisted splenectomy and left lateral hepatectomy and intraoperative ultrasound of the liver at [facility] 09/17/16. For a detailed report, please see my op note from same date. Post op, patient did very well without any evidence for major post- operative complication or wound problems. Only notable feature was lack of significant increase in patient's platelet count postoperatively. By the time of discharge, patient was tolerating a regular diet, had adequate pain control on oral pain medications, had shown return of bowel activity and was clinically stable. Patient is therefore being discharged today pending results of the upper extremity ultrasound that will be followed up by internal medicine. Subjective: No major events or complaints. No major abdominal pain complaints.Drain site skin open with minimal to no drainage and no pain complaints there. No n/v/d; no sob or cp; + flatus; - BM; + activity; no further issues with fevers Objective: Vitals: See below Exam: GENERAL: On exam, the patient was laying in bed and appeared to be comfortable and in no acute distress. ABDOMEN: Soft, essentially nontender and nondistended. Incisions are clean, dry and intact without any evidence of erythema, edema, discharge, or hernia. Surgery drain site dressing clean and drain site itself with open skin, no erythema, edema or major discharge. There are no peritoneal signs or guarding. SKIN: Skin appears to be pink and feels warm to touch. NEUROLOGIC: Patient is awake, alert, and follows commands appropriately. Exam/Review of Systems Vital Signs Vitals Vital Signs Date Time Temp Pulse Resp B/P Pulse Ox O2 Delivery O2 Flow Rate FiO2 10/02/16 12:00 99.2 88 20 126/73 95 10/01/16 23:34 Room Air Intake and Output 10/01/16 10/01/16 10/02/16 15:00 23:00 07:00 Intake Total 100 ml 100 ml 810 ml Output Total 900 ml Balance 100 ml -800 ml 810 ml Results Result Diagram: 10/02/16 0444 10/02/16 0444 TALA HIGGINS M.D. Oct 02, 2016 18:23
[2016-10-02 19:20] LABS: HOMOCYSTEINE - CARDIOVASCULAR 5.7 umol/L (<10.4)
[2016-10-02 20:00] VITALS: BP 116/68; RESP 19
[2016-10-02] MEDS ORDERED: ROMIPLOSTIM 250 MCG/0.5 ML SC ONE (20:00)
[2016-10-03] MEDS: PIPER-TAZO 3.375 GM IV (PMX) 100 ML IVPB SCH ×5 (00:37→23:00)
[2016-10-03] MEDS: HYDROmorphONE 1 MG/ML SYG IV PRN ×5 (03:27→23:00)
[2016-10-03] MEDS: SOD CHLORIDE 0.9% 1,000 ML IV SCH ×2 (04:25→12:35)
[2016-10-03 05:00] LABS: ADD SCAN DIFF NO
[2016-10-03 05:04] LABS: ABNORMAL IP MESSAGE 1; EOSINOPHILS # 0.1 10^3/ul (0.0-0.5); EOSINOPHILS % 3.1 % (0.0-7.0); HEMATOCRIT 25.2 % (37.0-47.0); LYMPHOCYTES # 1.1 10^3/ul (0.8-2.9); LYMPHOCYTES % 32.3 % (15.0-51.0); MEAN CORPUSCULAR HEMOGLOBIN 32.7 pg (29.0-33.0); MEAN CORPUSCULAR HGB CONC 31.7 g/dl (32.0-37.0); MEAN CORPUSCULAR VOLUME 102.9 fl (82.0-101.0); MEAN PLATELET VOLUME 12.7 fl (7.4-10.4); MONOCYTE # 0.3 10^3/ul (0.3-0.9); MONOCYTES % 7.4 % (0.0-11.0); NEUTROPHILS % 56.9 % (39.0-77.0); NUCLEATED RED BLOOD CELLS% 0.9 /100WBC (0.0-0.0); RED BLOOD COUNT 2.45 10^6/ul (4.20-5.40); RED CELL DISTRIBUTION WIDTH 16.7 % (11.5-14.5); RETICULOCYTE COUNT % 1.1 % (0.5-1.5); WHITE BLOOD COUNT 3.5 10^3/ul (4.8-10.8)
[2016-10-03 05:24] LABS: PLATELET COUNT 22 10^3/UL (140-415)
[2016-10-03 05:48] LABS: IRON 51 ug/dl (35-150)
[2016-10-03 05:49] LABS: ALBUMIN 3.5 g/dl (3.3-4.9); ALBUMIN/GLOBULIN RATIO 1.25; BILIRUBIN,INDIRECT 0.1 mg/dl (0-1.1); BILIRUBIN,TOTAL 0.1 mg/dl (0.2-1.3); CALCIUM 8.7 mg/dl (8.4-10.2); CREATININE 0.5 mg/dl (0.44-1.00); POTASSIUM 4.4 mmol/L (3.5-5.1); TOTAL PROTEIN 6.3 g/dl (6.1-8.1)
[2016-10-03 05:57] LABS: TOTAL IRON BINDING CAPACITY 282 ug/dl (241-421)
[2016-10-03] MEDS: PANTOPRAZOLE (EC) 40 MG TAB PO SCH (06:06)
[2016-10-03 06:11] LABS: THYROID STIMULATING HORMONE 1.68 MIU/L (0.465-4.680)
[2016-10-03 08:09] VITALS: BP 112/59; RESP 17
--- NOTE | 2016-10-03 10:13 | CONS ---
Date/Time of Note Date/Time of Note DATE: 10/03/16 TIME: 10:13 Assessment/Plan Assessment/Plan Chief Complaint/Hosp Course ID PROGRESS NOTE TOTAL ABX DAY # 3 => ZOSYN s/p Vanco IV x1 24H INTERVAL SUMMARY/HOSPITAL COURSE * Awake, alert, doing well, feels much better and hopes to go home soon. Denies fevers, reports LLQ small amount of drainage at post drain site -> DSG needs to be changed per pt. * Microbiology blood cultures remain negative, Lactobacillis urine = Vaginal Contaminant * IMAGING REVIEWED: CT of the brain revealed no acute intracranial findings. Chest x-ray revealed mild by basilar atelectatic changes left greater than right. CT of the abdomen and pelvis on admission revealed status post recent left hepatectomy and splenectomy with a small 6 Leiber of fluid along the splenic fossa * LABS: 10/03/16 0440 10/03/16 0440 PHYSICAL EXAMINATION: GENERAL: Overweight F, No fevers, VSS, NAD HEENT: Atraumatic, Unremarkable NECK: Supple, full ROM CHEST: Rise symmetrical w/ ABDOMEN: Soft, LLQ Dsg removed -> 1CM johnston colored drainage on gauze which lifts up crust debris upon removal for examination. There is no erythema noted at the ABD drain site; there is tenderness at the site when probed with sterile swab. EXTREMITIES: Warm, moves extremities ID ASSESSMENT: 31 yo morbid obese F s/p recent left hepatectomy/splenectomy admit with: 1. S/P sepsis on admission w/fevers 102.+, tachycardia HR >130, Lactic acidosis 2.3, elevated LDH on admission = RESOLVING * Etiology unclear => DDx possible pulmonary source vs alternative GI vs superficial ABD drain site cellulitis ? * SIRS post op inflammatory 2. Left lower quadrant abdominal wound at previous SOFY site DDx superficial cellulitis 3. ABD/Flank pain => ?back spasms vs constipation vs inflammatory post op ? 4. Fatty liver disease 5. A 5 mm cystic pancreatic tail lesion again seen on the MRI. 6. Pancytopenia with progressive thrombocytopenia 7. ITP 8. s/p GNR E.Coli/Strep bacteruria ? vs early UTI 09/25 & 10/06 * Repeat urine cx (+)Lactobacillus = Vaginal Contaminant, normal john (-) MRSA Nares screen INVASIVES: PIV ABX ALLERGY: KNDA CURRENT ABX: TOTAL ABX DAY # 3 => ZOSYN s/p Vanco IV x1 ID PLAN: * When cleared for DC home, patient may DC home on Augmentin 875mg po BID x 5 days * Superficial drain wound culture obtained as a reference for surgical OP follow up if needed. * Patient educated about the nature of transient bacterial sources of infection post-op due to intubation, Claire, drain, inflammation, post-op SIRS = she has responded well to empiric IV ABX and is stable for outpatient follow up. Patient expresses understanding/agreement with plan of care. . Problems: Consultation Date/Type/Reason Admit Date/Time Oct 01, 2016 at 00:21 Initial Consult Date 10/02/16 Type of Consultation: ID Exam/Review of Systems Vital Signs Vitals Vital Signs Date Time Temp Pulse Resp B/P Pulse Ox O2 Delivery O2 Flow Rate FiO2 10/03/16 08:09 98.3 78 17 112/59 100 10/01/16 23:34 Room Air Intake and Output 10/02/16 10/02/16 10/03/16 15:00 23:00 07:00 Intake Total 100 ml 1640 ml 1380 ml Output Total 600 ml Balance 100 ml 1040 ml 1380 ml Results Result Diagram: 10/03/16 0440 10/03/16 0440 Results 24 hrs Laboratory Tests Test 10/03/16 04:40 White Blood Count 3.5 L Red Blood Count 2.45 L Hemoglobin 8.0 L Hematocrit 25.2 L Mean Corpuscular Volume 102.9 H Mean Corpuscular Hemoglobin 32.7 Mean Corpuscular Hemoglobin Concent 31.7 L Red Cell Distribution Width 16.7 H Platelet Count 22 *L Mean Platelet Volume 12.7 H Neutrophils % 56.9 Lymphocytes % 32.3 Monocytes % 7.4 Eosinophils % 3.1 Basophils % 0.0 Nucleated Red Blood Cells % 0.9 H Neutrophils # 2.0 Lymphocytes # 1.1 Monocytes # 0.3 Eosinophils # 0.1 Basophils # 0.0 Nucleated Red Blood Cells # 0.0 Absolute Reticulocyte Count 0.026 Percent Reticulocyte Count 1.1 Sodium Level 139 Potassium Level 4.4 Chloride Level 97 Carbon Dioxide Level 29 Anion Gap 17 H Blood Urea Nitrogen 4 L Creatinine 0.50 Glucose Level 158 Calcium Level 8.7 Magnesium Level 2.0 Iron Level 51 Total Iron Binding Capacity 282 Percent Iron Saturation 18 L Ferritin 246.0 H Total Bilirubin 0.1 L Direct Bilirubin 0.00 Indirect Bilirubin 0.1 Aspartate Amino Transf (AST/SGOT) 29 Alanine Aminotransferase (ALT/SGPT) 33 Alkaline Phosphatase 119 Lactate Dehydrogenase 779 H Total Protein 6.3 Albumin 3.5 Globulin 2.80 Albumin/Globulin Ratio 1.25 Thyroid Stimulating Hormone (TSH) 1.680 Medications Medications Current Medications Sodium Chloride (NS) 1,000 ml @ 80 mls/hr [id number] IV Last administered on 10/02 22:26; Admin Dose 80 MLS/HR; Start 10/01/16 at 02:25 Ondansetron HCl (Zofran Inj) 4 mg Q6H PRN IV NAUSEA AND/OR VOMITING; Start at 02:30 Acetaminophen (Tylenol Tab) 650 mg Q6H PRN PO PAIN LEVEL 1-3 OR FEVER Last administered on 10/01/16 03:41; Admin Dose 650 MG; Start 10/01/16 at 02:30 Hydromorphone HCl 0.5 mg 0.5 mg Q4H PRN IV SEVERE PAIN LEVEL 7-10 Last administered on 10/03/16 09:45; Admin Dose 0.5 MG; Start 10/01/16 at 02:30 Piperacillin Sod/ Tazobactam Sod (Zosyn 3.375gm/ 100 ml (Pmx)) 100 ml @ 200 mls /hr Q6 IVPB Last administered on 10/03/16 06:06; Admin Dose 200 MLS/HR; Start 10/01/16 at 06:00 Acetaminophen/ Hydrocodone Bitart ([place] (5/325)) 1 tab Q4H PRN PO PAIN Last administered on 10/01/16 22:49; Admin Dose 1 TAB; Start 10/01/16 at 13:30 Pantoprazole (Protonix Tab) 40 mg DAILY@06 PO Last administered on 10/03/16 06 :06; Admin Dose 40 MG; Start 10/03/16 at 06:00 MICHAELLE SANTOS NP Oct 03, 2016 10:13
--- NOTE | 2016-10-03 11:16 | RADRPT ---
PROCEDURE: XR Chest. CLINICAL INDICATION: Shortness of breath. TECHNIQUE: Single frontal view. COMPARISON: 09/30/2016. FINDINGS: There is mild atelectasis at the lung bases with left worse than right. The lungs are otherwise shirley ar. The heart size is normal. There is no pleural effusion. There is no pneumothorax. IMPRESSION: 1. Mild atelectasis at the lung bases, left worse than right. 2. No change from 09/30/2016. RPTAT: QQ .Jeffery Peterson MD, MD Date Time Electronically viewed and signed by .Jeffery Peterson MD, MD on 10/03/2016 11:16 .R/
--- NOTE | 2016-10-03 11:19 | PN ---
Date/Time of Note Date/Time of Note DATE: 10/03/16 TIME: 11:16 Assessment/Plan VTE Prophylaxis VTE Prophylaxis Intervention: contraindicated Lines/Catheters IV Catheter Type (from [facility]): Peripheral IV Assessment/Plan Problems: (1) Sepsis Status: Acute Comment: Exact etiology of the sepsis is not entirely clear her sepsis syndrome has resolved with resolution of lactic acidosis fevers elevated white count tachycardia etc. She is on antibiotics and as per the recommendations of infectious disease she should have completion with oral Augmentin as an outpatient. Please note to the best of the information I can gather she did not have pre-splenectomy vaccines for either meningitis or pneumococcal vaccine. Those will be done today. She will need to follow the routine vaccine schedule. In addition I believe that she should have the pneumococcal vaccine to follow the Prevnar vaccine within 1 year. Discharge either today or tomorrow with the guidance of Dr. Rdz Qualifiers: Sepsis type: sepsis due to unspecified organism Qualified Code: A41.9 - Sepsis, due to unspecified organism (2) Severe thrombocytopenia Status: Acute Comment: As per hematology. (3) Steatohepatitis Status: Chronic Comment: This is due to weight and the genetics of diabetes mellitus type 2 no specific intervention is presently appropriate (4) Anemia Status: Chronic Comment: She has a modest iron deficiency in addition to her anemia. She was transfused during this hospitalization presently is stable Qualifiers: Anemia type: iron deficiency Iron deficiency anemia type: chronic blood loss Qualified Code: D50.0 - Iron deficiency anemia due to chronic blood loss (5) Diabetes mellitus type 2 in obese Status: Chronic Comment: Adequate sugar control (6) Acute abdominal pain Status: Acute Comment: Resolved with treatment of infection and sepsis. (7) Status post splenectomy Onset Date: ~ 08/2016 Status: Acute Comment: As above Subjective 24 Hr Interval Summary Free Text/Dictation Patient reports she is feeling much better without fevers chills or sweats. She reports her abdominal pain and back pain are improved. Constitutional: no complaints Respiratory: no complaints Cardiovascular: no complaints Gastrointestinal: no complaints Genitourinary: no complaints Exam/Review of Systems Vital Signs Vitals Vital Signs Date Time Temp Pulse Resp B/P Pulse Ox O2 Delivery O2 Flow Rate FiO2 10/03/16 08:09 98.3 78 17 112/59 100 10/01/16 23:34 Room Air Intake and Output 710/02/16 10/03/16 15:00 23:00 07:00 Intake Total 100 ml 1640 ml 1380 ml Output Total 600 ml Balance 100 ml 1040 ml 1380 ml Exam Constitutional: alert, oriented Neck: non-tender, supple Respiratory: clear to auscultation, normal air movement Cardiovascular: nl pulses, regular rate and rhythm Results Result Diagram: 10/03/16 0440 10/03/16 0440 Results 24 hrs Laboratory Tests Test 10/03/16 04:40 White Blood Count 3.5 L Red Blood Count 2.45 L Hemoglobin 8.0 L Hematocrit 25.2 L Mean Corpuscular Volume 102.9 H Mean Corpuscular Hemoglobin 32.7 Mean Corpuscular Hemoglobin Concent 31.7 L Red Cell Distribution Width 16.7 H Platelet Count 22 *L Mean Platelet Volume 12.7 H Neutrophils % 56.9 Lymphocytes % 32.3 Monocytes % 7.4 Eosinophils % 3.1 Basophils % 0.0 Nucleated Red Blood Cells % 0.9 H Neutrophils # 2.0 Lymphocytes # 1.1 Monocytes # 0.3 Eosinophils # 0.1 Basophils # 0.0 Nucleated Red Blood Cells # 0.0 Absolute Reticulocyte Count 0.026 Percent Reticulocyte Count 1.1 Sodium Level 139 Potassium Level 4.4 Chloride Level 97 Carbon Dioxide Level 29 Anion Gap 17 H Blood Urea Nitrogen 4 L Creatinine 0.50 Glucose Level 158 Calcium Level 8.7 Magnesium Level 2.0 Iron Level 51 Total Iron Binding Capacity 282 Percent Iron Saturation 18 L Ferritin 246.0 H Total Bilirubin 0.1 L Direct Bilirubin 0.00 Indirect Bilirubin 0.1 Aspartate Amino Transf (AST/SGOT) 29 Alanine Aminotransferase (ALT/SGPT) 33 Alkaline Phosphatase 119 Lactate Dehydrogenase 779 H Total Protein 6.3 Albumin 3.5 Globulin 2.80 Albumin/Globulin Ratio 1.25 Thyroid Stimulating Hormone (TSH) 1.680 Medications Medications Current Medications Sodium Chloride (NS) 1,000 ml @ 80 mls/hr [id number] IV Last administered on 10/02t 22:26; Admin Dose 80 MLS/HR; Start 10/01/16 at 02:25 Ondansetron HCl (Zofran Inj) 4 mg Q6H PRN IV NAUSEA AND/OR VOMITING; Start at 02:30 Acetaminophen (Tylenol Tab) 650 mg Q6H PRN PO PAIN LEVEL 1-3 OR FEVER Last administered on 10/01/16 03:41; Admin Dose 650 MG; Start 10/01/16 at 02:30 Hydromorphone HCl 0.5 mg 0.5 mg Q4H PRN IV SEVERE PAIN LEVEL 7-10 Last administered on 10/03/16 09:45; Admin Dose 0.5 MG; Start 10/01/16 at 02:30 Piperacillin Sod/ Tazobactam Sod (Zosyn 3.375gm/ 100 ml (Pmx)) 100 ml @ 200 mls /hr Q6 IVPB Last administered on 10/03/16 06:06; Admin Dose 200 MLS/HR; Start 10/01/16 at 06:00 Acetaminophen/ Hydrocodone Bitart ([place] (5/325)) 1 tab Q4H PRN PO PAIN Last administered on 10/01/16 22:49; Admin Dose 1 TAB; Start 10/01/16 at 13:30 Pantoprazole (Protonix Tab) 40 mg DAILY@06 PO Last administered on 10/03/16 06 :06; Admin Dose 40 MG; Start 10/03/16 at 06:00 Pneumoccal 13-Valent Conj Vacc (Prevnar 13 Syringe) 0.5 ml ONCE ONCE IM* ; Start 10/03/16 at 13:00; Stop 10/03/16 at 13:01 JORGE LUIS ASHTON MD Oct 03, 2016 11:19
[2016-10-03] MEDS ORDERED: [UNRECOGNIZED DRUG - OTHER] SC* ONE (13:00)
[2016-10-03] MEDS ORDERED: PNEUMOC 13-VAL CONJ-DIP CRM/PF 0.5 ML SYR IM* ONE (13:00)
[2016-10-03] MEDS ORDERED: BISACODYL 10 MG SUPP PR ONE (15:00)
--- NOTE | 2016-10-03 15:12 | PN ---
Date/Time of Note Date/Time of Note DATE: 10/03/16 TIME: 15:10 Assessment/Plan VTE Prophylaxis VTE Prophylaxis Intervention: anti-embolic stocking Lines/Catheters IV [facility] Peripheral IV Assessment/Plan Assessment/Plan 31-year-old female with a chronic history of idiopathic thrombocytopenia refractory to multiple lines of medical treatment including steroid use, Imuran , Nplate (romiplostim) as well as rituximab with very little effect per Dr. Rdz, baseline platelet count 20-30K, status post laparoscopic, hand-assisted splenectomy and left lateral hepatectomy and intraoperative ultrasound of the liver on 09/17/16. She received 1 unit of platelets during surgery due to intraoperative bleeding. # ITP Per Dr. Luna, the patient has been followed by him since March 2015, last romiplostim was 07/24/16 and she receives 500 mcg monthly. -Per Dr. Luna, will give 500 mcg romiplostim while here as patient has not received this month. Per MAY it was scheduled for September 21 during the last admission, but she was discharged prior to it being given. Will give N plate 500 mcg today. previously has been on 15 mg qod prednisone and will restart - Will continue to monitor platelet count. Splenectomy unfortunately may not work as would have expected platelet count to increase significantly after splenectomy. - No indication for platelet transfusion unless bleeding in the setting of ITP - Patient should f/u with Dr. Luna upon discharge - per Dr. Rdz, will plan to give post-splenectomy vaccines at the end of this admission # Macrocytic anemia, Vitamin B12 and folate within normal limits, will check TSH , homocysteine, methylmalonic acid, as well as LDH, retic count, haptoglobin, iron panel, ferritin with a.m. labs. s/p 2 units pRBCs yesterday for HGb 6.6, now stable # Leukopenia, may be related to sepsis as previously normal, continue to monitor. Subjective 24 Hr Interval Summary Constitutional: no complaints ENT: no complaints Respiratory: no complaints Exam/Review of Systems Vital Signs Vitals Vital Signs Date Time Temp Pulse Resp B/P Pulse Ox O2 Delivery O2 Flow Rate FiO2 10/03/16 08:09 98.3 78 17 112/59 100 10/01/16 23:34 Room Air Intake and Output 10/02/16 10/02/16 10/03/16 15:00 23:00 07:00 Intake Total 100 ml 1640 ml 1380 ml Output Total 600 ml Balance 100 ml 1040 ml 1380 ml Exam Constitutional: alert, oriented Psych: nl mood/affect Respiratory: normal air movement Results Result Diagram: 10/03/16 0440 10/03/16 0440 Results 24 hrs Laboratory Tests Test 10/03/16 04:40 White Blood Count 3.5 L Red Blood Count 2.45 L Hemoglobin 8.0 L Hematocrit 25.2 L Mean Corpuscular Volume 102.9 H Mean Corpuscular Hemoglobin 32.7 Mean Corpuscular Hemoglobin Concent 31.7 L Red Cell Distribution Width 16.7 H Platelet Count 22 *L Mean Platelet Volume 12.7 H Neutrophils % 56.9 Lymphocytes % 32.3 Monocytes % 7.4 Eosinophils % 3.1 Basophils % 0.0 Nucleated Red Blood Cells % 0.9 H Neutrophils # 2.0 Lymphocytes # 1.1 Monocytes # 0.3 Eosinophils # 0.1 Basophils # 0.0 Nucleated Red Blood Cells # 0.0 Absolute Reticulocyte Count 0.026 Percent Reticulocyte Count 1.1 Sodium Level 139 Potassium Level 4.4 Chloride Level 97 Carbon Dioxide Level 29 Anion Gap 17 H Blood Urea Nitrogen 4 L Creatinine 0.50 Glucose Level 158 Calcium Level 8.7 Magnesium Level 2.0 Iron Level 51 Total Iron Binding Capacity 282 Percent Iron Saturation 18 L Ferritin 246.0 H Total Bilirubin 0.1 L Direct Bilirubin 0.00 Indirect Bilirubin 0.1 Aspartate Amino Transf (AST/SGOT) 29 Alanine Aminotransferase (ALT/SGPT) 33 Alkaline Phosphatase 119 Lactate Dehydrogenase 779 H Total Protein 6.3 Albumin 3.5 Globulin 2.80 Albumin/Globulin Ratio 1.25 Thyroid Stimulating Hormone (TSH) 1.680 Medications Medications Current Medications Sodium Chloride (NS) 1,000 ml @ 80 mls/hr [id number] IV Last administered on 10/03 12:35; Admin Dose 80 MLS/HR; Start 10/01/16 at 02:25 Ondansetron HCl (Zofran Inj) 4 mg Q6H PRN IV NAUSEA AND/OR VOMITING; Start at 02:30 Acetaminophen (Tylenol Tab) 650 mg Q6H PRN PO PAIN LEVEL 1-3 OR FEVER Last administered on 10/01/16 03:41; Admin Dose 650 MG; Start 10/01/16 at 02:30 Hydromorphone HCl 0.5 mg 0.5 mg Q4H PRN IV SEVERE PAIN LEVEL 7-10 Last administered on 10/03/16 14:34; Admin Dose 0.5 MG; Start 10/01/16 at 02:30 Piperacillin Sod/ Tazobactam Sod (Zosyn 3.375gm/ 100 ml (Pmx)) 100 ml @ 200 mls /hr Q6 IVPB Last administered on 10/03/16 11:29; Admin Dose 200 MLS/HR; Start 10/01/16 at 06:00 Acetaminophen/ Hydrocodone Bitart ([place] (5/325)) 1 tab Q4H PRN PO PAIN Last administered on 10/01/16 22:49; Admin Dose 1 TAB; Start 10/01/16 at 13:30 Pantoprazole (Protonix Tab) 40 mg DAILY@06 PO Last administered on 10/03/16 06 :06; Admin Dose 40 MG; Start 10/03/16 at 06:00 Amoxicillin/ Clavulanate Potassium (Augmentin) 875 mg BID PO ; Start 10/03/16 at 21:00; Stop 10/08/16 at 23:00 LUIS EDUARDO KHAN MD Oct 03, 2016 15:12
[2016-10-03] MEDS ORDERED: predniSONE 5 MG TAB PO ONE (15:30)
--- NOTE | 2016-10-03 16:02 | PN ---
Date/Time of Note Date/Time of Note DATE: 10/03/16 TIME: 15:57 Assessment/Plan Lines/Catheters IV Catheter Type (from [facility]): Peripheral IV Assessment/Plan Assessment/Plan [facility] Progress Note Date of Service: 10/03/16 Today's Impression & Plan: Overall has remained stable and improved. No abdominal pain and no further issues with headaches or fevers. Bowel activity seems to return. No indication for acute surgical intervention. Okay from my standpoint for patient to discharge home with close outpatient follow-up. Ideally, she should receive her postsplenectomy vaccinations today, pending Dr. Reddy's approval. Discussed with patient and her mother and answered all of their questions. With above assessment, I've recommended the following for today: 1. Consider discharge home 2. Would be ideal for patient to receive her postsplenectomy vaccinations ( against encapsulated organisms such as pneumococcus, meningococcus, and H. influenzae ) 3. Follow-up with primary care physician with labs 4. Follow-up with us in 2-3 weeks 5. Outpatient plans for antimicrobial management (? Duration and dosage) Thank you again for your great care of this very pleasant patient and wonderful family. If there are any questions, please feel free to call me at [phone]. Disclaimer: Inadvertent spelling or grammatical errors are likely due to EHR/ dictation software use and do not reflect on the overall quality of patient care. Updated Clinical Summary: A very pleasant 31-year-old lady with comorbidities including BMI of 36.5 as well as chronic idiopathic thrombocytopenia (ITP) since late 2014 that has been refractory to medical treatment, presenting with several hepatic masses. S/p laparoscopic, hand-assisted splenectomy and left lateral hepatectomy and intraoperative ultrasound of the liver at [facility] 09/17/16. Reported feeling well for the first two days after discharge from [facility], but then started experiencing abdominal pain. Readmitted to [facility] through ED on 09/25/16 for abdominal pain with admission and discharge to outside hospital prior to coming to [facility]. D/c home 09/27. COMORBIDITIES: 1. Chronic ITP diagnosed late 2014 and refractory to multiple lines of medical treatment including steroid use, Imuran, Nplate (romiplostim) as well as rituximab with very little effect. Platelet counts in the 20s to 30s. Surgical intervention was recommended by Dr. Luna. S/p laparoscopic, hand- assisted splenectomy and left lateral hepatectomy and intraoperative ultrasound of the liver at [facility] 09/17/16 2. BMI 36.5. 3. Anemia. 4. Diabetes mellitus. 5. Adnexal cyst. 6. Hearing loss in the left side. 7. Status post . 8. Multiple liver lesions that appear to be homogeneously arterially phases, enhancing hepatic lesions with differential including hepatic adenomas, hemangiomas, focal nodular hyperplasia, or hypervascular metastatic disease as seen on abdominal and pelvic CT 04/21/2016. Abdominal ultrasound on 04/21/2016 showed enlarged fatty liver and above-mentioned masses measuring up to 6 cm. A contrast MRI 04/24/2016 again showed multiple arterially enhancing liver lesions , one of which was 4.2 x 5.9 cm (distal edge of segment 2), a second one was 1.8 cm (again in segment 2 but more immediately), additional 4 to 5 smaller lesions within the right lobe were noted all showing washout on 30 second delay , and mostly isointense the liver on delayed images. Central areas of hypointensity seen within the 2 left lobe lesions fill in, and there is a suggestion of mild hyperintense appearance on the 60 second delayed films, best seen on image 26. 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 9. A 5 mm cystic pancreatic tail lesion again seen on the MRI. Hospital Course Patient underwent an otherwise uncomplicated laparoscopic, hand-assisted splenectomy and left lateral hepatectomy and intraoperative ultrasound of the liver at [facility] 09/17/16. For a detailed report, please see my op note from same date. Post op, patient did very well without any evidence for major post- operative complication or wound problems. Only notable feature was lack of significant increase in patient's platelet count postoperatively. By the time of discharge, patient was tolerating a regular diet, had adequate pain control on oral pain medications, had shown return of bowel activity and was clinically stable. Patient is therefore being discharged today pending results of the upper extremity ultrasound that will be followed up by internal medicine. Subjective: No major events or complaints. No major abdominal pain complaints.Drain site skin open with minimal to no drainage and no pain complaints there. No n/v/d; no sob or cp; + flatus; + BM; + activity; no further issues with fevers Objective: Vitals: See below Exam: GENERAL: On exam, the patient was standing up in her room just having a moderate bathroom and appeared to be comfortable and in no acute distress. ABDOMEN: Soft, nontender and nondistended. Incisions are clean, dry and intact without any evidence of erythema, edema, discharge, or hernia. Surgery drain site dressing clean and drain site itself with open skin, no erythema, edema or major discharge. There are no peritoneal signs or guarding. SKIN: Skin appears to be pink and feels warm to touch. NEUROLOGIC: Patient is awake, alert, and follows commands appropriately. Exam/Review of Systems Vital Signs Vitals Vital Signs Date Time Temp Pulse Resp B/P Pulse Ox O2 Delivery O2 Flow Rate FiO2 10/03/16 08:09 98.3 78 17 112/59 100 10/01/16 23:34 Room Air Intake and Output 10/02/16 10/02/16 10/03/16 15:00 23:00 07:00 Intake Total 100 ml 1640 ml 1380 ml Output Total 600 ml Balance 100 ml 1040 ml 1380 ml Results Result Diagram: 10/03/16 0440 10/03/16 0440 TALA HIGGINS M.D. Oct 03, 2016 16:02
[2016-10-03 19:25] VITALS: BP 115/65; RESP 18
[2016-10-03] MEDS: AMOXICILLIN/CLAV 875 MG TAB PO SCH (20:52)
[2016-10-04] MEDS: SOD CHLORIDE 0.9% 1,000 ML IV SCH ×2 (01:13→05:25)
[2016-10-04] MEDS: HYDROmorphONE 1 MG/ML SYG IV PRN ×3 (04:20→12:40)
[2016-10-04 05:14] LABS: ADD SCAN DIFF NO
[2016-10-04 05:17] LABS: ABNORMAL IP MESSAGE 1; HEMATOCRIT 26.7 % (37.0-47.0); HEMOGLOBIN 8.7 g/dl (12.0-16.0); LYMPHOCYTES # 1.1 10^3/ul (0.8-2.9); LYMPHOCYTES % 28.8 % (15.0-51.0); MEAN CORPUSCULAR HEMOGLOBIN 33.9 pg (29.0-33.0); MEAN CORPUSCULAR HGB CONC 32.6 g/dl (32.0-37.0); MEAN CORPUSCULAR VOLUME 103.9 fl (82.0-101.0); MEAN PLATELET VOLUME 10.5 fl (7.4-10.4); MONOCYTE # 0.2 10^3/ul (0.3-0.9); MONOCYTES % 5.1 % (0.0-11.0); NEUTROPHIL # 2.5 10^3/ul (1.6-7.5); NEUTROPHILS % 65.8 % (39.0-77.0); RED BLOOD COUNT 2.57 10^6/ul (4.20-5.40); RED CELL DISTRIBUTION WIDTH 15.9 % (11.5-14.5); WHITE BLOOD COUNT 3.7 10^3/ul (4.8-10.8)
[2016-10-04 05:40] LABS: ALBUMIN 4.3 g/dl (3.3-4.9); ALBUMIN/GLOBULIN RATIO 1.26; BILIRUBIN,INDIRECT 0.1 mg/dl (0-1.1); BILIRUBIN,TOTAL 0.1 mg/dl (0.2-1.3); CALCIUM 9.3 mg/dl (8.4-10.2); CREATININE 0.44 mg/dl (0.44-1.00); POTASSIUM 4.9 mmol/L (3.5-5.1); TOTAL PROTEIN 7.7 g/dl (6.1-8.1)
[2016-10-04] MEDS: PIPER-TAZO 3.375 GM IV (PMX) 100 ML IVPB SCH ×2 (05:40→12:04)
[2016-10-04] MEDS: PANTOPRAZOLE (EC) 40 MG TAB PO SCH (05:40)
[2016-10-04 05:45] LABS: PLATELET COUNT 19 10^3/UL (140-415)
--- NOTE | 2016-10-04 07:22 | PN ---
Date/Time of Note Date/Time of Note DATE: 10/04/16 TIME: 07:18 Assessment/Plan Lines/Catheters IV Catheter Type (from Nrsg): Peripheral IV Assessment/Plan Assessment/Plan [facility] Progress Note Date of Service: 10/04/16 Today's Impression & Plan: Overall has remained stable and improved. Abdomen remains benign and no further issues with headaches or fevers. Bowel activity appears normal. No indication for acute surgical intervention. Okay from my standpoint for patient to discharge home today with close outpatient follow-up. (Patient received her postsplenectomy vaccinations yesterday per report). Discussed with patient and answered all her questions. With above assessment, I've recommended the following for today: 1. Discharge home today 2. Follow-up with primary care physician with labs 3. Follow-up with us in 2-3 weeks 4. Outpatient plans for antimicrobial management (? Duration and dosage) Nature presenting problem: High complexity Thank you again for your great care of this very pleasant patient and wonderful family. If there are any questions, please feel free to call me at [phone]. Disclaimer: Inadvertent spelling or grammatical errors are likely due to EHR/ dictation software use and do not reflect on the overall quality of patient care. Updated Clinical Summary: A very pleasant 31-year-old lady with comorbidities including BMI of 36.5 as well as chronic idiopathic thrombocytopenia (ITP) since late 2014 that has been refractory to medical treatment, presenting with several hepatic masses. S/p laparoscopic, hand-assisted splenectomy and left lateral hepatectomy and intraoperative ultrasound of the liver at [facility] 09/17/16. Reported feeling well for the first two days after discharge from [facility], but then started experiencing abdominal pain. Readmitted to [facility] through ED on 09/25/16 for abdominal pain with admission and discharge to outside hospital prior to coming to [facility]. D/c home 09/27. COMORBIDITIES: 1. Chronic ITP diagnosed late 2014 and refractory to multiple lines of medical treatment including steroid use, Imuran, Nplate (romiplostim) as well as rituximab with very little effect. Platelet counts in the 20s to 30s. Surgical intervention was recommended by Dr. Luna. S/p laparoscopic, hand- assisted splenectomy and left lateral hepatectomy and intraoperative ultrasound of the liver at [facility] 09/17/16 2. BMI 36.5. 3. Anemia. 4. Diabetes mellitus. 5. Adnexal cyst. 6. Hearing loss in the left side. 7. Status post . 8. Multiple liver lesions that appear to be homogeneously arterially phases, enhancing hepatic lesions with differential including hepatic adenomas, hemangiomas, focal nodular hyperplasia, or hypervascular metastatic disease as seen on abdominal and pelvic CT 04/21/2016. Abdominal ultrasound on 04/21/2016 showed enlarged fatty liver and above-mentioned masses measuring up to 6 cm. A contrast MRI 04/24/2016 again showed multiple arterially enhancing liver lesions , one of which was 4.2 x 5.9 cm (distal edge of segment 2), a second one was 1.8 cm (again in segment 2 but more immediately), additional 4 to 5 smaller lesions within the right lobe were noted all showing washout on 30 second delay , and mostly isointense the liver on delayed images. Central areas of hypointensity seen within the 2 left lobe lesions fill in, and there is a suggestion of mild hyperintense appearance on the 60 second delayed films, best seen on image 26. 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 9. A 5 mm cystic pancreatic tail lesion again seen on the MRI. Hospital Course Patient underwent an otherwise uncomplicated laparoscopic, hand-assisted splenectomy and left lateral hepatectomy and intraoperative ultrasound of the liver at [facility] 09/17/16. For a detailed report, please see my op note from same date. Post op, patient did very well without any evidence for major post- operative complication or wound problems. Only notable feature was lack of significant increase in patient's platelet count postoperatively. By the time of discharge, patient was tolerating a regular diet, had adequate pain control on oral pain medications, had shown return of bowel activity and was clinically stable. Patient is therefore being discharged today pending results of the upper extremity ultrasound that will be followed up by internal medicine. Subjective: No major events or complaints. No major abdominal pain complaints.Drain site skin open with minimal to no drainage and no pain complaints there. No n/v/d; no sob or cp; + flatus; + BM; + activity; no mention of fevers, spasms or back pain. Patient reported receiving vaccinations last night. Objective: Vitals: See below Exam: GENERAL: On exam, the patient was laying in bed and appeared to be comfortable and in no acute distress. ABDOMEN: Soft, nontender and nondistended. Incisions are clean, dry and intact without any evidence of erythema, edema, discharge, or hernia. Surgery drain site dressing clean and drain site itself with open skin, no erythema, edema or major discharge. There are no peritoneal signs or guarding. SKIN: Skin appears to be pink and feels warm to touch. NEUROLOGIC: Patient is awake, alert, and follows commands appropriately. Exam/Review of Systems Vital Signs Vitals Vital Signs Date Time Temp Pulse Resp B/P Pulse Ox O2 Delivery O2 Flow Rate FiO2 10/03/16 19:25 98.5 92 18 115/65 93 10/01/16 23:34 Room Air Intake and Output 10/03/16 10/03/16 10/04/16 15:00 23:00 07:00 Intake Total 400 ml 1550 ml 1280 ml Balance 400 ml 1550 ml 1280 ml Results Result Diagram: 10/04/16 0418 10/04/16 0421 TALA HIGGINS M.D. Oct 04, 2016 07:22
[2016-10-04 08:20] VITALS: BP 110/61; RESP 14
[2016-10-04] MEDS: AMOXICILLIN/CLAV 875 MG TAB PO SCH (08:54)
--- NOTE | 2016-10-04 13:10 | DS ---
Date/Time of Note Date/Time of Note DATE: 10/04/16 TIME: 13:07 Discharge Summary Admission/Discharge Info Admit Date/Time Oct 01, 2016 at 00:21 Discharge Date/Time October 04, 2016 Discharge Diagnosis Sepsis with surgical site infection; chronic ITP with thrombocytopenia; status post splenectomy; obesity; diabetes mellitus type 2; steatohepatitis; Patient Condition: Good Consults Surgery-Dr. Higgins; hematology-Dr. Sexton; infectious disease-Dr. Reddy Hx of Present Illness cc: abdominal pain This is a 31-year-old female presents with abdominal pain is been worsening for the last few days as well as nausea vomiting and fevers. Pain is a sharp pain located in her left upper abdomen. She denies cough and burning in urination. 31-year-old female presents with abdominal pain is been worsening for the last few days as well as nausea vomiting and fevers. Pain is a sharp pain located in her upper abdomen. She denies cough and burning in urination. Patient recently had surgery performed by Dr. 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 She has a history of chronic ITP. Patient also states that the open wound/fistula that she has on her left abdomen she has noticed a change in smell as well as a change in the discharge. Medications: See MAR Allergies: NKDA Hospital Course ID PROGRESS NOTE TOTAL ABX DAY # 3 => ZOSYN s/p Vanco IV x1 24H INTERVAL SUMMARY/HOSPITAL COURSE * Awake, alert, doing well, feels much better and hopes to go home soon. Denies fevers, reports LLQ small amount of drainage at post drain site -> DSG needs to be changed per pt. * Microbiology blood cultures remain negative, Lactobacillis urine = Vaginal Contaminant * IMAGING REVIEWED: CT of the brain revealed no acute intracranial findings. Chest x-ray revealed mild by basilar atelectatic changes left greater than right. CT of the abdomen and pelvis on admission revealed status post recent left hepatectomy and splenectomy with a small 6 Leiber of fluid along the splenic fossa * LABS: 10/03/16 0440 10/03/16 0440 PHYSICAL EXAMINATION: GENERAL: Overweight F, No fevers, VSS, NAD HEENT: Atraumatic, Unremarkable NECK: Supple, full ROM CHEST: Rise symmetrical w/ ABDOMEN: Soft, LLQ Dsg removed -> 1CM johnston colored drainage on gauze which lifts up crust debris upon removal for examination. There is no erythema noted at the ABD drain site; there is tenderness at the site when probed with sterile swab. EXTREMITIES: Warm, moves extremities ID ASSESSMENT: 31 yo morbid obese F s/p recent left hepatectomy/splenectomy admit with: 1. S/P sepsis on admission w/fevers 102.+, tachycardia HR >130, Lactic acidosis 2.3, elevated LDH on admission = RESOLVING * Etiology unclear => DDx possible pulmonary source vs alternative GI vs superficial ABD drain site cellulitis ? * SIRS post op inflammatory 2. Left lower quadrant abdominal wound at previous SOFY site DDx superficial cellulitis 3. ABD/Flank pain => ?back spasms vs constipation vs inflammatory post op ? 4. Fatty liver disease 5. A 5 mm cystic pancreatic tail lesion again seen on the MRI. 6. Pancytopenia with progressive thrombocytopenia 7. ITP 8. s/p GNR E.Coli/Strep bacteruria ? vs early UTI 09/25 & 10/06 * Repeat urine cx (+)Lactobacillus = Vaginal Contaminant, normal john (-) MRSA Nares screen INVASIVES: PIV ABX ALLERGY: KNDA CURRENT ABX: TOTAL ABX DAY # 3 => ZOSYN s/p Vanco IV x1 ID PLAN: * When cleared for DC home, patient may DC home on Augmentin 875mg po BID x 5 days * Superficial drain wound culture obtained as a reference for surgical OP follow up if needed. * Patient educated about the nature of transient bacterial sources of infection post-op due to intubation, Claire, drain, inflammation, post-op SIRS = she has responded well to empiric IV ABX and is stable for outpatient follow up. Patient expresses understanding/agreement with plan of care. . Home Meds Active Scripts Docusate Sodium* (Colace*) 100 Mg Capsule, 100 MG PO BID for CONSTIPATION, #60 CAP Prov:LOBO,HERBER V. [employer] 09/27/16 Hydrocodone/Acetaminophen (Largo 5-325 Tablet) 1 Each Tablet, 1 EACH PO Q6H for PAIN for 30 Days, TAB Prov:LOBO,HERBER V. [employer] 09/27/16 Reported Medications Ferrous Sulfate* (Ferrous Sulfate*) 325 Mg Tabec, 325 MG PO BID, TAB 09/25/16 Metformin Hcl* (Metformin Hcl*) 1,000 Mg Tablet, 1000 MG PO WITH BREAKFAST DINNE , #60 TAB 09/25/16 Discontinued Scripts Hydrocodone Bit-Acetaminophen (Hydrocodone Bit-APAP) 5-325MG Tablet, 2 TAB PO Q4H Y for PAIN LEVEL 7-10 for 14 Days, #45 TAB 0 Refills Prov:TALA HIGGINS M.D. 09/20/16 Follow-up Plan Surgery in 1 week; hematology in 1 week Primary Care Provider Madeleine Cochran Time spent on discharge: > 30 minutes Pending Labs Laboratory Tests Test 10/04/16 04:18 10/04/16 04:21 White Blood Count 3.710^3/ul (4.8-10.8) Red Blood Count 2.5710^6/ul (4.20-5.40) Hemoglobin 8.7g/dl (12.0-16.0) Hematocrit 26.7% (37.0-47.0) Mean Corpuscular Volume 103.9fl (82.0-101.0) Mean Corpuscular Hemoglobin 33.9pg (29.0-33.0) Mean Corpuscular Hemoglobin Concent 32.6g/dl (32.0-37.0) Red Cell Distribution Width 15.9% (11.5-14.5) Platelet Count 1910^3/UL (140-415) Mean Platelet Volume 10.5fl (7.4-10.4) Neutrophils % 65.8% (39.0-77.0) Lymphocytes % 28.8% (15.0-51.0) Monocytes % 5.1% (0.0-11.0) Eosinophils % 0.0% (0.0-7.0) Basophils % 0.0% (0.0-2.0) Nucleated Red Blood Cells % 0.0/100WBC (0.0-0.0) Neutrophils # 2.510^3/ul (1.6-7.5) Lymphocytes # 1.110^3/ul (0.8-2.9) Monocytes # 0.210^3/ul (0.3-0.9) Eosinophils # 0.010^3/ul (0.0-0.5) Basophils # 0.010^3/ul (0.0-0.1) Nucleated Red Blood Cells # 0.010^3/ul (0.0-0.0) Sodium Level 140mmol/L (135-144) Potassium Level 4.9mmol/L (3.5-5.1) Chloride Level 101mmol/L (97-110) Carbon Dioxide Level 29mmol/L (21-31) Anion Gap 15 (8-16) Blood Urea Nitrogen 3mg/dl (7-20) Creatinine 0.44mg/dl (0.44-1.00) Glucose Level 248mg/dl (70-220) Calcium Level 9.3mg/dl (8.4-10.2) Total Bilirubin 0.1mg/dl (0.2-1.3) Direct Bilirubin 0.00mg/dl (0.00-0.20) Indirect Bilirubin 0.1mg/dl (0-1.1) Aspartate Amino Transf (AST/SGOT) 28IU/L (15-46) Alanine Aminotransferase (ALT/SGPT) 38IU/L (13-69) Alkaline Phosphatase 150IU/L (42-121) Total Protein 7.7g/dl (6.1-8.1) Albumin 4.3g/dl (3.3-4.9) Globulin 3.40g/dl (1.3-3.2) Albumin/Globulin Ratio 1.26 JORGE LUIS ASHTON MD Oct 04, 2016 13:09
--- NOTE | 2016-10-04 13:11 | PDOCDIS ---
Discharge Instructions DIAGNOSIS Discharge Diagnosis Sepsis with surgical site infection; chronic ITP with thrombocytopenia; status post splenectomy; obesity; diabetes mellitus type 2; steatohepatitis; CONDITION Patient Condition: Good HOME CARE INSTRUCTIONS: Diet Instructions: Regular ACTIVITY: Activity Restrictions: Slowly Increase Activity Rest between Activity Avoid heavy lifting Bathing Restrictions: Shower FOLLOW UP/APPOINTMENTS Follow-up Plan Hematology-Dr. Cochran; surgery-JORGE LUIS Ordonez MD Oct 04, 2016 13:10
[2016-10-04] MEDS ORDERED: AMOX1TAB10 PO (13:13)
[2016-10-04] MEDS ORDERED: PRED5 PO (13:13)
[2016-10-05 17:54] LABS: HOMOCYSTEINE - CARDIOVASCULAR 5.9 umol/L (<10.4)
== END 2016-10-04 14:53 | disposition home or self-care (01) | DRG 872 ==
LOC: E/R 20:29 → MS1 10-01 00:21
PROVIDERS: ADMIT Family Medicine; ATTEND Family Medicine
DX: A41.9 Sepsis, unspecified organism (principal); D69.3 Immune thrombocytopenic purpura; D61.818 Other pancytopenia; T81.4XXA Infection following a procedure, initial encounter; E11.9 Type 2 diabetes mellitus without complications; D53.9 Nutritional anemia, unspecified; K76.0 Fatty (change of) liver, not elsewhere classified; L03.311 Cellulitis of abdominal wall; Z90.81 Acquired absence of spleen; N83.8 Other noninflammatory disorders of ovary, fallopian tube and broad ligament; H91.92 Unspecified hearing loss, left ear; E66.01 Morbid (severe) obesity due to excess calories; Z68.35 Body mass index [BMI] 35.0-35.9, adult; Y83.8 Other surgical procedures as the cause of abnormal reaction of the patient, or of later complication, without mention of misadventure at the time of the procedure; K86.9 Disease of pancreas, unspecified
CPT/HCPCS: 36415; 36430; 70450; 71010; 74177; 80053; 81001; 82607; 82728; 82746; 83010; 83090; 83540; 83605; 83615; 83735; 83921; 84145; 84443; 84484; 84703; 85014; 85018; 85025; 85045; 85610; 85730; 86850; 86900; 86901; 86920; 87040; 87070; 87086; 90670; 90733; 93005; 96365; 96366; 96375; C9113; J1170; J2270; J2405; J2543; J2796; J3370; J7030; J7512; P9016; Q9967

== ENCOUNTER 2016-10-14 13:54 | Outpatient (CLI) | payer OTHER ==
[~2016-10-14] VITALS: Ht 165.1 cm; Wt 93.9 kg
[~2016-10-14 13:54] MED LIST changes: +AMOX1TAB10 PO; +PRED5 PO
[2016-10-14 14:08] VITALS: Ht 165.1 cm; Wt 93.9 kg
[2016-10-14 14:09] VITALS: BP 122/73; PULSE 95; RESP 18
--- NOTE | 2016-10-14 17:46 | PN ---
Date/Time of Note Date/Time of Note DATE: 10/14/16 TIME: 17:39 Assessment/Plan Assessment/Plan Assessment/Plan [facility] Progress Note Date of Service: 10/14/16 Today's Impression & Plan: Overall stable and improved. No further issues with major abdominal pain. Appears that the surgical drain was likely because of abdominal pain. Small amount of discharge from her incision was likely due to a seroma and there is no indication of any wound infections at this time. No further treatment is necessary. No indication for acute surgical intervention. Discussed with patient and answered all her questions. Also had a conversation with patient's primary hematology oncologist, Dr. Luna, was recommended that the patient receive a second opinion from hematology oncology department and the hepatobiliary division at [facility], which I concur with. With above assessment, I've recommended the following for today: 1. Follow-up with primary care physician 2. Follow-up with hematology oncology 3. Follow-up with us as needed 4. May consider a liver/spleen scan to further clarify the clinical picture 5. Follow-up with Dr. Luna's recommendation regarding second opinion at [facility] Nature presenting problem: High complexity Thank you again for your great care of this very pleasant patient and wonderful family. If there are any questions, please feel free to call me at [phone]. Disclaimer: Inadvertent spelling or grammatical errors are likely due to EHR/ dictation software use and do not reflect on the overall quality of patient care. Updated Clinical Summary: A very pleasant 31-year-old lady with comorbidities including BMI of 36.5 as well as chronic idiopathic thrombocytopenia (ITP) since late 2014 that has been refractory to medical treatment, presenting with several hepatic masses. S/p laparoscopic, hand-assisted splenectomy and left lateral hepatectomy and intraoperative ultrasound of the liver at [facility] 09/17/16. Reported feeling well for the first two days after discharge from [facility], but then started experiencing abdominal pain. Readmitted to [facility] through ED on 09/25/16 for abdominal pain with admission and discharge to outside hospital prior to coming to [facility]. D/c home 09/27. Readmitted to [facility] 10/01/2016 with abdominal pain that resolved after removal of the surgical drain. Discharged home 10/04/2016. COMORBIDITIES: 1. Chronic ITP diagnosed late 2014 and refractory to multiple lines of medical treatment including steroid use, Imuran, Nplate (romiplostim) as well as rituximab with very little effect. Platelet counts in the 20s to 30s. Surgical intervention was recommended by Dr. Luna. S/p laparoscopic, hand- assisted splenectomy and left lateral hepatectomy and intraoperative ultrasound of the liver at [facility] 09/17/16 2. BMI 36.5. 3. Anemia. 4. Diabetes mellitus. 5. Adnexal cyst. 6. Hearing loss in the left side. 7. Status post . 8. Multiple liver lesions that appear to be homogeneously arterially phases, enhancing hepatic lesions with differential including hepatic adenomas, hemangiomas, focal nodular hyperplasia, or hypervascular metastatic disease as seen on abdominal and pelvic CT 04/21/2016. Abdominal ultrasound on 04/21/2016 showed enlarged fatty liver and above-mentioned masses measuring up to 6 cm. A contrast MRI 04/24/2016 again showed multiple arterially enhancing liver lesions , one of which was 4.2 x 5.9 cm (distal edge of segment 2), a second one was 1.8 cm (again in segment 2 but more immediately), additional 4 to 5 smaller lesions within the right lobe were noted all showing washout on 30 second delay , and mostly isointense the liver on delayed images. Central areas of hypointensity seen within the 2 left lobe lesions fill in, and there is a suggestion of mild hyperintense appearance on the 60 second delayed films, best seen on image 26. 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 9. A 5 mm cystic pancreatic tail lesion again seen on the MRI. Hospital Course Patient underwent an otherwise uncomplicated laparoscopic, hand-assisted splenectomy and left lateral hepatectomy and intraoperative ultrasound of the liver at [facility] 09/17/16. For a detailed report, please see my op note from same date. Post op, patient did very well without any evidence for major post- operative complication or wound problems. Only notable feature was lack of significant increase in patient's platelet count postoperatively. By the time of discharge, patient was tolerating a regular diet, had adequate pain control on oral pain medications, had shown return of bowel activity and was clinically stable. Patient is therefore being discharged today pending results of the upper extremity ultrasound that will be followed up by internal medicine. Subjective: No major events or complaints since discharge other than above mentioned slight drainage from the HandPort site which appears to be clear and no associated erythema, edema, calor, extra pain, nausea, vomiting, fevers, or chills. No major abdominal pain complaints. Drain site skin open with minimal to no drainage and no pain complaints there. No n/v/d; no sob or cp; + flatus; + BM; + activity; no mention of spasms or back pain. Objective: Vitals: See below Exam: GENERAL: On exam, the patient was laying in bed and appeared to be comfortable and in no acute distress. ABDOMEN: Soft, nontender and nondistended. Incisions are clean, dry and intact without any evidence of erythema, edema, or hernia. Dressing overlying the incision has a slight drop of serous type of wetness in the middle of it. In the middle of the wound there is a tiny 1 mm opening with no expressible fluid from it. No evidence of any pus or erythema of the site or any of the incisions. Surgery drain site dressing clean and drain site itself with open skin, no erythema, edema or major discharge. There are no peritoneal signs or guarding. SKIN: Skin appears to be pink and feels warm to touch. NEUROLOGIC: Patient is awake, alert, and follows commands appropriately. Exam/Review of Systems Vital Signs Vitals Vital Signs Date Time Temp Pulse Resp B/P Pulse Ox O2 Delivery O2 Flow Rate FiO2 10/14/16 14:09 98.1 95 18 122/73 98 Room Air TALA HIGGINS M.D. Oct 14, 2016 17:46
== END 2016-10-14 16:22 | disposition home or self-care (01) ==
LOC: HPC 13:54
PROVIDERS: ATTEND Transplant Surgery
DX: D69.3 Immune thrombocytopenic purpura (principal); D64.9 Anemia, unspecified; E11.9 Type 2 diabetes mellitus without complications; H91.8X2 Other specified hearing loss, left ear; N83.8 Other noninflammatory disorders of ovary, fallopian tube and broad ligament
CPT/HCPCS: G0463